=== PATIENT | male | born 1940 | race Caucasian/White ===

== ENCOUNTER → 2019-12-01 15:34 | Outpatient (CLI) | payer OTHER, SELFPAY ==
--- NOTE | 2019-12-01 | DI.CT.S_ITS ---
PROCEDURE: CT LE LT W CON INDICATIONS: LEFT HIP PAIN TECHNIQUE: Noncontrast 3 mm axial sections acquired through the bony pelvis. Additional 3 mm axial sections acquired through the symptomatic hip joint, with coronal and sagittal reformats. COMPARISON: None. FINDINGS: Image quality: Diagnostic. Bones: Patient is status post left total hip arthroplasty. There is extensive lobulated soft tissue mass encompassing the left femoral head and neck component of the prosthesis extending anteriorly and posteriorly to the left hip joint within iliopsoas bursa. There is also medial extension of the soft tissue mass with smoothly erosive changes through the acetabulum and inferior and superior pubic rami. Dorsal and superior subluxation of the femoral head component is seen in relation to the acetabular component. No gross acute fracture is identified although markedly thickened bowel acetabulum is noted. Soft tissues: No other pelvic soft tissue or muscle abnormality is seen. Visualized pelvis shows no free fluid or free air. No inguinal hernia or lymphadenopathy. IMPRESSION: 1. Hypodense soft tissue mass involving left hip joint as described in detail above most compatible with small particle disease. No definite pathologic fracture. No dislocation. Superior and posterior subluxation at left hip joint. 2. No other soft tissue abnormality is seen. Dictated by: Abelino Nolan M.D. on 12/01/2019 at 17:12 Approved by: Abelino Nolan M.D. on 12/01/2019 at 17:19
== END ==
PROVIDERS: Family Provider Family Medicine; PCP Family Medicine; Referring Provider Orthopaedic Surgery; Visit Provider Orthopaedic Surgery
DX: M25.552 Pain in left hip (principal); M25.852 Other specified joint disorders, left hip; S73.012A Posterior subluxation of left hip, initial encounter; Z96.642 Presence of left artificial hip joint
CPT/HCPCS: 73700

== ENCOUNTER → 2020-03-26 13:20 | Outpatient (CLI) | payer OTHER, SELFPAY ==
[2020-03-27 07:43] LABS: COVID19 Sendout Not Detected (Not Detect)
== END ==
PROVIDERS: Family Provider Family Medicine; PCP Family Medicine; Visit Provider Family Medicine
DX: Z11.59 Encounter for screening for other viral diseases (principal)
CPT/HCPCS: 87635

== ENCOUNTER → 2020-05-20 15:16 | Outpatient (CLI) | payer OTHER, SELFPAY ==
--- NOTE | 2020-05-20 15:21 | DI.RAD.S_ITS ---
PROCEDURE: XR HIP W PEL IF DONE LT 2V INDICATIONS: HISTORY OF TOTAL HIP REPLACEMENT, SURGICAL FOLLOW UP. TECHNIQUE: AP pelvis and lateral view of the left hip acquired. COMPARISON: [facility], RG, PELVIS W/LAT HIP LT, 08/03/2019, 17:03. [facility], CT, CT LE LT WO CON, 12/01/2019, 15:45. [facility], CR, XR PELVIS WITH BILATERAL LATERAL HIPS, 11/19/2019, 16:05. FINDINGS: Bones: Patient is status post revision of left hip arthroplasty, with hardware components in expected positions. There is coxa profunda. The hip joint appears congruent. The visualized bony structures appear intact. Posttraumatic appearance of the greater tuberosity is unchanged. Mild smooth bony remodeling along the femoral component lateral aspect of the femoral diaphysis is unchanged. Mild degenerative changes of the right hip. Degenerative changes of the lumbar spine incompletely evaluated. Soft tissues: Overlying postoperative changes are noted. Postsurgical changes along the left periarticular soft tissues. IMPRESSION: Revisional left total hip arthroplasty without evidence of hardware complication. Chronic stress reaction of the proximal femoral diaphysis at the tip of the femoral component. Dictated by: Issac Vasquez D.O. on 05/20/2020 at 15:00 Approved by: Issac Vasquez D.O. on 05/20/2020 at 15:09
== END ==
PROVIDERS: Family Provider Family Medicine; PCP Family Medicine; Referring Provider Orthopaedic Surgery; Visit Provider Orthopaedic Surgery
DX: Z09 Encounter for follow-up examination after completed treatment for conditions other than malignant neoplasm (principal); Z96.642 Presence of left artificial hip joint; M47.816 Spondylosis without myelopathy or radiculopathy, lumbar region
CPT/HCPCS: 73502

== ENCOUNTER → 2020-07-20 15:49 | Outpatient (CLI) | payer OTHER, SELFPAY ==
--- NOTE | 2020-07-20 | DI.RAD.S_ITS ---
PROCEDURE: XR HIP W PEL IF DONE LT 2V INDICATIONS: surgical f/u s/p left hip arthroplasty TECHNIQUE: AP pelvis with lateral view(s) of the left hip(s). COMPARISON: [facility], , XR HIP W PEL IF DONE LT 2V, 05/20/2020, 15:22. FINDINGS: Bones: No fracture. Left hip arthroplasty in expected alignment. Lumbar spondylosis and facet arthropathy moderate right hip joint degeneration. Soft tissues: The visualized bowel gas pattern is normal. No suspicious soft tissue calcifications. IMPRESSION: Expected alignment of left hip arthroplasty. Dictated by: Vinnie Blankenship M.D. on 07/20/2020 at 16:39 Approved by: Vinnie Blankenship M.D. on 07/20/2020 at 16:40
== END ==
PROVIDERS: Family Provider Family Medicine; PCP Family Medicine; Referring Provider Orthopaedic Surgery; Visit Provider Orthopaedic Surgery
DX: Z47.1 Aftercare following joint replacement surgery (principal); Z96.642 Presence of left artificial hip joint
CPT/HCPCS: 73502

== ENCOUNTER → 2022-02-11 15:30 | Outpatient (CLI) | payer OTHER, SELFPAY ==
[2022-02-11 16:17] LABS: Add Manual Diff / Slide Review NO; Basophils Absolute Auto 0 /uL (0-100); Basophils Percent Auto 0.6 % (0-2); Eosinophils Absolute Auto 0 /uL (0-450); Eosinophils Percent Auto 0.4 % (2-4); Hematocrit 33.8 % (41-53); Hemoglobin 11.6 g/dL (13.5-17.5); Lymphocytes Absolute Auto 1400 /uL (1100-4500); Lymphocytes Percent Auto 21.3 % (25-40); Mean Corpuscular HGB Conc 34.3 % (30-36); Mean Corpuscular Volume 87.3 fL (80-100); Monocytes Absolute Auto 900 /uL (0-900); Monocytes Percent Auto 12.9 % (3-14); Neutrophils Absolute Auto 4300 /uL (1500-7000); Neutrophils Percent Auto 64.8 % (50-75); Platelet Count 212 X10^3/uL (150-400); Red Blood Cell Count 3.87 X10^6/uL (4.5-5.9); Red Cell Distribution Width 15.2 % (11.6-14.8); White Blood Cell Count 6.6 X10^3/uL (4.5-11.0)
[2022-02-11 16:39] LABS: Erythrocyte Sedimentation Rate 32 MM/HR (0-15)
[2022-02-11 16:46] LABS: Alanine Aminotransferase 17 IU/L (<50); Albumin 4.1 g/dL (3.5-5.0); Albumin Globulin Ratio 1.2 (1.0-2.8); Alkaline Phosphatase 106 U/L (38-126); Aspartate Aminotransferase 23 IU/L (17-59); BUN Creatinine Ratio 16.1 (6-22); Bilirubin Total 0.6 mg/dL (0.2-1.3); Blood Urea Nitrogen 10 mg/dL (9-20); C-Reactive Protein Quant 1.2 mg/dL (<1.0); Calcium 8.7 mg/dL (8.4-10.2); Carbon Dioxide 28 mmol/L (22-32); Chloride 95 mmol/L (98-107); Estimated Glomerular Filt Rate > 60 mL/min (>60); Globulin 3.4 g/dL (1.7-4.1); Glucose 175 mg/dL (80-110); HEMOLYSIS < 15 (0-50); Potassium 4.5 mmol/L (3.4-5.1); Sodium 129 mmol/L (137-145); Total Protein 7.5 g/dL (6.3-8.2)
== END ==
PROVIDERS: Family Provider Family Medicine; PCP Family Medicine; Referring Provider Nurse Practitioner; Visit Provider Nurse Practitioner
DX: L40.50 Arthropathic psoriasis, unspecified (principal); Z79.899 Other long term (current) drug therapy
CPT/HCPCS: 36415; 80053; 85025; 85651; 86140

== ENCOUNTER → 2022-04-23 16:29 | Outpatient (CLI) | payer OTHER, SELFPAY ==
[2022-04-23 17:53] LABS: Alanine Aminotransferase 16 IU/L (<50); Albumin 4.5 g/dL (3.5-5.0); Albumin Globulin Ratio 1.3 (1.0-2.8); Alkaline Phosphatase 130 U/L (38-126); Aspartate Aminotransferase 26 IU/L (17-59); BUN Creatinine Ratio 19.1 (6-22); Bilirubin Total 0.8 mg/dL (0.2-1.3); Blood Urea Nitrogen 13 mg/dL (9-20); C-Reactive Protein Quant 1.6 mg/dL (<1.0); Calcium 9.1 mg/dL (8.4-10.2); Carbon Dioxide 29 mmol/L (22-32); Chloride 91 mmol/L (98-107); Estimated Glomerular Filt Rate > 60 mL/min (>60); Globulin 3.6 g/dL (1.7-4.1); Glucose 118 mg/dL (80-110); HEMOLYSIS < 15 (0-50); Potassium 4.8 mmol/L (3.4-5.1); Sodium 130 mmol/L (137-145); Total Protein 8.1 g/dL (6.3-8.2)
[2022-04-23 18:13] LABS: Add Manual Diff / Slide Review NO; Basophils Absolute Auto 0 /uL (0-100); Basophils Percent Auto 0.4 % (0-2); Eosinophils Absolute Auto 0 /uL (0-450); Eosinophils Percent Auto 0.6 % (2-4); Hematocrit 35.2 % (41-53); Lymphocytes Absolute Auto 1800 /uL (1100-4500); Mean Corpuscular Hemoglobin 29.8 PG (26-34); Mean Corpuscular Volume 87.6 fL (80-100); Monocytes Absolute Auto 900 /uL (0-900); Monocytes Percent Auto 11.3 % (3-14); Neutrophils Absolute Auto 5100 /uL (1500-7000); Neutrophils Percent Auto 64.7 % (50-75); Platelet Count 236 X10^3/uL (150-400); Red Blood Cell Count 4.02 X10^6/uL (4.5-5.9); Red Cell Distribution Width 15.5 % (11.6-14.8); White Blood Cell Count 7.9 X10^3/uL (4.5-11.0)
[2022-04-23 18:56] LABS: Erythrocyte Sedimentation Rate 31 MM/HR (0-15)
[2022-05-08 06:31] LABS: TPMT Genotype *1/*1
== END ==
PROVIDERS: Family Provider Family Medicine; PCP Family Medicine; Referring Provider Physician Assistant; Visit Provider Physician Assistant
DX: L40.50 Arthropathic psoriasis, unspecified (principal)
CPT/HCPCS: 36415; 80053; 81335; 85025; 85651; 86140

== ENCOUNTER → 2022-05-18 11:42 | Outpatient (CLI) | payer OTHER, SELFPAY ==
[2022-05-18 12:21] LABS: Cholesterol 77 mg/dL (140-199); HDL Cholesterol 30 mg/dL (40-60); LDL Cholesterol Calculated 40 mg/dL (<100); Triglycerides 35 mg/dL (35-150)
== END ==
PROVIDERS: Family Provider Family Medicine; PCP Family Medicine; Referring Provider Family Medicine; Visit Provider Family Medicine
DX: I25.10 Atherosclerotic heart disease of native coronary artery without angina pectoris (principal)
CPT/HCPCS: 36415; 80061

== ENCOUNTER → 2023-05-06 12:49 | Outpatient (CLI) | payer OTHER, SELFPAY ==
[2023-05-06 14:35] LABS: Cholesterol 84 mg/dL (140-199); HDL Cholesterol 30 mg/dL (40-60); LDL Cholesterol Calculated 45 mg/dL (<100); Triglycerides 44 mg/dL (35-150)
== END ==
PROVIDERS: Family Provider Family Medicine; PCP Family Medicine; Referring Provider Internal Medicine Cardiovascular Disease; Visit Provider Internal Medicine Cardiovascular Disease
DX: I10 Essential (primary) hypertension (principal); I25.10 Atherosclerotic heart disease of native coronary artery without angina pectoris; I50.32 Chronic diastolic (congestive) heart failure
CPT/HCPCS: 36415; 80061

== ENCOUNTER → 2023-07-26 12:02 | Outpatient (CLI) | payer OTHER, SELFPAY ==
[2023-07-26 12:23] LABS: Add Manual Diff / Slide Review NO; Basophils Absolute Auto 0 /uL (0-100); Basophils Percent Auto 0.4 % (0-2); Eosinophils Absolute Auto 0 /uL (0-450); Eosinophils Percent Auto 0.8 % (2-4); Hematocrit 33.6 % (41-53); Hemoglobin 11.4 g/dL (13.5-17.5); Lymphocytes Absolute Auto 1000 /uL (1100-4500); Lymphocytes Percent Auto 16.3 % (25-40); Mean Corpuscular Hemoglobin 30.2 PG (26-34); Mean Corpuscular Volume 88.8 fL (80-100); Monocytes Absolute Auto 500 /uL (0-900); Monocytes Percent Auto 8.3 % (3-14); Neutrophils Absolute Auto 4400 /uL (1500-7000); Neutrophils Percent Auto 74.2 % (50-75); Platelet Count 202 X10^3/uL (150-400); Red Blood Cell Count 3.79 X10^6/uL (4.5-5.9); Red Cell Distribution Width 15.1 % (11.6-14.8); White Blood Cell Count 5.9 X10^3/uL (4.5-11.0)
[2023-07-26 12:37] LABS: Alanine Aminotransferase 14 IU/L (<50); Albumin 4.3 g/dL (3.5-5.0); Albumin Globulin Ratio 1.3 (1.0-2.8); Alkaline Phosphatase 106 U/L (38-126); Aspartate Aminotransferase 21 IU/L (17-59); BUN Creatinine Ratio 16.4 (6-22); Bilirubin Total 0.9 mg/dL (0.2-1.3); Blood Urea Nitrogen 11 mg/dL (9-20); C-Reactive Protein Quant 1.3 mg/dL (<1.0); Calcium 9.2 mg/dL (8.4-10.2); Carbon Dioxide 26 mmol/L (22-32); Chloride 91 mmol/L (98-107); Estimated Glomerular Filt Rate > 60 mL/min (>60); Globulin 3.4 g/dL (1.7-4.1); Glucose 181 mg/dL (80-110); HEMOLYSIS < 15 (0-50); Potassium 4.5 mmol/L (3.4-5.1); Sodium 127 mmol/L (137-145); Total Protein 7.7 g/dL (6.3-8.2)
[2023-07-26 12:41] LABS: Erythrocyte Sedimentation Rate 36 MM/HR (0-15)
== END ==
PROVIDERS: Family Provider Family Medicine; PCP Family Medicine; Referring Provider Internal Medicine Rheumatology; Visit Provider Family Medicine
DX: L40.50 Arthropathic psoriasis, unspecified (principal)
CPT/HCPCS: 36415; 80053; 85025; 85651; 86140

== ENCOUNTER → 2023-09-17 12:44 | Outpatient (CLI) | payer OTHER, SELFPAY ==
--- NOTE | 2023-09-17 12:46 | DI.RAD.S_ITS ---
PROCEDURE: XR HIP W PEL IF DONE LT MIN 4V INDICATIONS: Left hip pain; hx of total LH replacement; no hx of injury TECHNIQUE: AP pelvis and lateral view of the hip acquired. COMPARISON: [facility], , XR HIP W PEL IF DONE LT 2V, 07/20/2020, 16:02. FINDINGS: Bones: Patient is status post left hip arthroplasty, with hardware components in expected positions. No evidence of hardware loosening or failure. Hip alignment is unchanged from prior study. Increased radiolucency surrounding left hip prosthesis in proximal femoral shaft, concerning for osteolysis. Moderate right hip joint osteoarthritic changes are seen. No evidence of avascular necrosis. Soft tissues: Overlying postoperative changes are noted. No suspicious soft tissue densities. IMPRESSION: 1. Prior left total hip arthroplasty. No acute fracture or dislocation. No gross hardware loosening or failure. Increased radiolucency surrounding left femoral prosthesis surrounding proximal femoral shaft extending to greater trochanter concerning for osteolysis. 2. Moderate right hip joint osteoarthritis. No fracture or dislocation. No evidence of avascular necrosis. Dictated by: Abelino Nolan M.D. on 09/17/2023 at 16:37 Approved by: Abelino Nolan M.D. on 09/17/2023 at 16:39
[2023-09-17 13:53] LABS: Add Manual Diff / Slide Review NO; Basophils Absolute Auto 0 /uL (0-100); Basophils Percent Auto 0.7 % (0-2); Eosinophils Absolute Auto 0 /uL (0-450); Eosinophils Percent Auto 0.5 % (2-4); Hematocrit 34.4 % (41-53); Hemoglobin 11.6 g/dL (13.5-17.5); Lymphocytes Absolute Auto 1300 /uL (1100-4500); Mean Corpuscular HGB Conc 33.9 % (30-36); Mean Corpuscular Hemoglobin 30.4 PG (26-34); Mean Corpuscular Volume 89.8 fL (80-100); Monocytes Absolute Auto 500 /uL (0-900); Monocytes Percent Auto 9.6 % (3-14); Neutrophils Absolute Auto 3500 /uL (1500-7000); Neutrophils Percent Auto 65.2 % (50-75); Platelet Count 182 X10^3/uL (150-400); Red Blood Cell Count 3.83 X10^6/uL (4.5-5.9); Red Cell Distribution Width 14.9 % (11.6-14.8); White Blood Cell Count 5.4 X10^3/uL (4.5-11.0)
[2023-09-17 14:26] LABS: Hemoglobin A1C% w Est Avg Glu 5.4 % (4.0-6.0)
[2023-09-17 16:03] LABS: Alanine Aminotransferase 12 IU/L (<50); Albumin 4.1 g/dL (3.5-5.0); Albumin Globulin Ratio 1.3 (1.0-2.8); Alkaline Phosphatase 128 U/L (38-126); Aspartate Aminotransferase 21 IU/L (17-59); BUN Creatinine Ratio 15.8 (6-22); Bilirubin Total 1.1 mg/dL (0.2-1.3); Blood Urea Nitrogen 9 mg/dL (9-20); Calcium 9.1 mg/dL (8.4-10.2); Carbon Dioxide 29 mmol/L (22-32); Chloride 95 mmol/L (98-107); Cholesterol 75 mg/dL (140-199); Estimated Glomerular Filt Rate > 60 mL/min (>60); Globulin 3.1 g/dL (1.7-4.1); Glucose 123 mg/dL (80-110); HDL Cholesterol 39 mg/dL (40-60); HEMOLYSIS < 15 (0-50); LDL Cholesterol Calculated 28 mg/dL (<100); Potassium 4.5 mmol/L (3.4-5.1); Sodium 130 mmol/L (137-145); Total Protein 7.2 g/dL (6.3-8.2); Triglycerides 42 mg/dL (35-150)
== END ==
PROVIDERS: Family Provider Family Medicine; PCP Family Medicine; Referring Provider Physician Assistant; Visit Provider Physician Assistant
DX: M16.11 Unilateral primary osteoarthritis, right hip (principal); M25.552 Pain in left hip; I63.9 Cerebral infarction, unspecified; R73.01 Impaired fasting glucose; L40.50 Arthropathic psoriasis, unspecified; R79.89 Other specified abnormal findings of blood chemistry; Z96.642 Presence of left artificial hip joint
CPT/HCPCS: 36415; 73522; 80053; 80061; 83036; 85025

== ENCOUNTER 2024-01-06 23:13 | Inpatient (IN) | payer OTHER, SELFPAY ==
[2024-01-06 23:14] VITALS: BP 232/11; PULSE 75; RESP 16; TEMP 36.5; O2SAT 91; BMI 36.1
[2024-01-06 23:20] VITALS: PULSE 76; RESP 26; O2SAT 91
--- NOTE | 2024-01-06 23:21 | DI.RAD.S_ITS ---
PROCEDURE: XR CHEST 1V INDICATIONS: weakness TECHNIQUE: One view of the chest was acquired. COMPARISON: None. FINDINGS: Surgical changes and devices: Sternal wires. Lungs and pleura: Lungs are clear. No pleural effusions or pneumothorax. Mediastinum: Mediastinal contours appear normal. Heart size is enlarged. Bones and chest wall: No suspicious bony lesions. Overlying soft tissues appear unremarkable. IMPRESSION: No acute pulmonary process. Dictated by: Mabel Eddy M.D. on 01/07/2024 at 1:06 Approved by: Mabel Eddy M.D. on 01/07/2024 at 1:06
--- NOTE | 2024-01-06 23:23 | ED.GENADULT ---
HPI - General Adult General Chief complaint: Altered Mental Status Stated complaint: Weakness/AMS Time Seen by Provider: 01/06/24 23:15 Source: EMS Mode of arrival: EMS History of Present Illness HPI narrative: 83-year-old gentleman with a history of coronary artery disease, hypertension, prior stroke, psoriatic arthritis, chronic left hip pain, elevated blood sugars who is brought in by medics at the request of his for weakness, falls and altered mental status for the last 2 days. is having difficulty caring for him at home. Patient is complaining of nausea at this time but is otherwise pleasantly confused. Not complaining of chest pain, dyspnea, orthopnea, not noting new lower extremity edema. No complaints of dysuria, frequency, flank pain. Of note he has a baseline history of anisocoria that is unchanged. Related Data Home Medications Medication Instructions Recorded Confirmed aspirin 81 mg tablet,delayed 81 mg PO QDAY ##0 07/30/12 09/16/23 release [SOSA & CELERY EX] 1 tab PO BID ##0 08/20/17 09/16/23 isosorbide mononitrate 30 mg 30 mg PO QAM ##0 08/20/17 09/16/23 tablet,extended release 24 hr magnesium oxide 400 mg (241.3 mg 400 mg PO QDAY ##0 08/20/17 09/16/23 magnesium) tablet nitroglycerin 0.4 mg sublingual 0.4 mg sublingual PRN PRN ##0 08/20/17 09/16/23 tablet (Nitrostat) vit C 250 mg-vit E 90 mg-zinc 40 2 cap PO QDAY ##0 08/20/17 09/16/23 mg-copper 1 [id number] capsule (PreserVision AREDS-2) ascorbic acid (vitamin C) 1,000 mg 1 g PO Q6H 04/16/22 09/16/23 tablet furosemide 40 mg tablet 40 mg PO DAILY 04/16/22 09/16/23 ketoconazole 2 % topical cream 1 applic topical BID 04/16/22 09/16/23 vitamin B complex (B 1 tab PO DAILY 04/16/22 09/16/23 Complex-Vitamin B12 tablet) valsartan 80 mg tablet 80 mg PO BID 09/16/23 09/16/23 Previous Rx's Medication Instructions Recorded azathioprine 50 mg tablet 50 mg PO DAILY #30 tabs 04/16/22 omeprazole 20 mg capsule,delayed See Rx Instructions .Route 02/11/23 release .COMPLEX #180 caps carvedilol 6.25 mg tablet (Coreg) 6.25 mg PO BID #180 tabs 10/06/23 atorvastatin 20 mg tablet 20 mg PO BEDTIME #90 tabs 10/15/23 Allergies Allergy/AdvReac Type Severity Reaction Status Date / Time benzocaine [BENZOCAINE] Allergy Unknown Unverified 09/16/23 16:27 procaine [From NOVOCAIN] Allergy Unknown Unverified 09/16/23 16:27 SULFA Allergy Mild Uncoded 09/16/23 16:27 Review of Systems Review of Systems Narrative: Pertinent positive and negative findings as per HPI Patient History Medical History Right orbital fracture Excessive cerumen in both ear canals Actinic keratoses Wears glasses Psoriatic arthritis (~2017) Stroke (~2012) Mumps (~1946) Measles (~1946) Chicken pox (~1946) Hearing loss Glaucoma (~2015) Cataracts, bilateral (~2015) Gastric ulcer (~2012) Coronary artery disease (~2012) Carotid artery disorder (~2013) Surgical History Anesthesia History of eye surgery (~08/23/17) History of plastic surgery (~08/21/17) History of cataract removal with insertion of prosthetic lens Status post carotid surgery (~04/07/14) History of heart bypass surgery (~09/18/12) Status post total hip replacement, left (~1989) Family History Father History of heart disease History of heart bypass surgery Mother Diabetes mellitus Brother History of heart disease History of heart bypass surgery Social History Smoking Status: Never smoker Smoking Status: Never smoker Substance Use Type: does not use Exam Initial Vital Signs Initial Vital Signs: Vital Signs Temperature 97.7 F 01/06/24 23:14 Pulse Rate 75 01/06/24 23:14 Respiratory Rate 16 01/06/24 23:14 Blood Pressure 232/11 H 01/06/24 23:14 Pulse Oximetry 91 01/06/24 23:14 Oxygen Delivery Method Room Air 01/06/24 23:14 General: Older appearing gentleman, in no acute distress. Wondering history but able to speak in full sentences HEENT: Moist mucous membranes, normal sclera Neck: No JVD, supple Respiratory: Lungs with scattered wheeze, no crackles, Full and symmetrical air movement Cardiac: Regular rate and rhythm no murmurs no bruits Abdomen: Soft, obese, nontender, good bowel tones, no flank pain Skin: Warm and dry, no rashes Neurologic: Grossly neurologically intact with no obvious asymmetries or abnormalities Extremities: No trauma, well perfused, 1+ bilateral lower extremity edema with chronic venous stasis changes, Left arm has a large hematoma over the elbow and proximal arm. Dressing is in place. Full unrestricted and nonfocal painful range of motion at that elbow. 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 - Disability Benefits Specialist Stat 01/06/24 23:25 CT head/brain wo con Stat 01/06/24 23:39 Complete Blood Count AUTO DIFF Stat Comprehensive Metabolic Panel Stat Lipase Stat Magnesium Stat NT-proBNP (BNP-Adult 18+) Stat Procalcitonin Stat Troponin I Stat 01/07/24 00:30 Respiratory Panel (Film Array) Stat 01/07/24 00:31 Urinalysis and Microscopic Stat 01/07/24 01:15 Osmolality Urine Stat Osmolality, Serum Stat Discontinued Medications Furosemide (Furosemide 40 Mg/4 Ml Vial) 40 mg IV NOW ONE Stop: 01/07/24 01:16 Last Admin: 01/07/24 01:30 Dose: 40 mg Sodium Chloride (Hypertonic Saline 3%) 100 mls @ 600 mls/hr IV NOW ONE Stop: 01/07/24 01:25 Last Admin: 01/07/24 01:38 Dose: 600 mls/hr Valsartan (Valsartan 80 Mg Tablet) 80 mg PO NOW ONE Stop: 01/07/24 01:31 Vital Signs Vital signs: Vital Signs - 8 hr 01/06/24 23:14 01/06/24 23:20 01/06/24 23:30 Temperature 97.7 F Pulse Rate 75 76 76 Respiratory Rate 16 26 H 27 H Blood Pressure 232/11 H Pulse Oximetry 91 91 92 Oxygen Delivery Method Room Air 01/07/24 00:00 01/07/24 00:09 01/07/24 00:09 Temperature Pulse Rate 79 83 Respiratory Rate 26 H 30 H Blood Pressure 235/125 H Pulse Oximetry 95 95 Oxygen Delivery Method 01/07/24 00:30 01/07/24 00:31 01/07/24 00:31 Temperature Pulse Rate 83 83 Respiratory Rate 27 H 46 H Blood Pressure 246/114 H Pulse Oximetry 95 95 Oxygen Delivery Method 01/07/24 00:39 01/07/24 00:39 01/07/24 00:40 Temperature Pulse Rate 85 Respiratory Rate 38 H Blood Pressure 133/95 H 216/90 H Pulse Oximetry 94 Oxygen Delivery Method 01/07/24 00:40 01/07/24 00:50 01/07/24 00:50 Temperature Pulse Rate 84 83 Respiratory Rate 50 H 48 H Blood Pressure 198/90 H Pulse Oximetry 98 Oxygen Delivery Method 01/07/24 01:00 01/07/24 01:00 01/07/24 01:10 Temperature Pulse Rate 81 Respiratory Rate 49 H Blood Pressure 180/92 H 188/104 H Pulse Oximetry 97 Oxygen Delivery Method 01/07/24 01:10 Temperature Pulse Rate 82 Respiratory Rate 53 H Blood Pressure Pulse Oximetry 97 Oxygen Delivery Method Medical Decision Making Lab Data 01/06/24 23:39 01/06/24 23:39 Labs: Lab Results 01/06/24 01/07/24 01/07/24 Range/Units 23:39 00:30 00:31 WBC 11.0 (4.5-11.0) X10^3/uL RBC 3.62 L (4.5-5.9) X10^6/uL Hgb 10.9 L (13.5-17.5) g/dL Hct 30.8 L (41-53) % MCV 85.0 (80-100) fL MCH 30.1 (26-34) PG MCHC 35.4 (30-36) % RDW 15.2 H (11.6-14.8) % Plt Count 277 (150-400) X10^3/uL Neut % (Auto) 80.7 H (50-75) % Lymph % (Auto) 10.1 L (25-40) % Dickenson % (Auto) 8.4 (3-14) % Eos % (Auto) 0.1 L (2-4) % Baso % (Auto) 0.7 (0-2) % Neut # (Auto) 8900 H (9730-0149) /uL Lymph # (Auto) 1100 (9369-1091) /uL Dickenson # (Auto) 900 (0-900) /uL Eos # (Auto) 0 (0-450) /uL Baso # (Auto) 100 (0-100) /uL Sodium 107 L* (137-145) mmol/L Potassium 5.0 (3.4-5.1) mmol/L Chloride 72 L* (98-107) mmol/L Carbon Dioxide 25 (22-32) mmol/L BUN 10 (9-20) mg/dL Creatinine 0.52 L (0.66-1.25) mg/dL Estimated GFR > 60 (>60) mL/min BUN/Creatinine Ratio 19.2 (6-22) Glucose 141 H (80-110) mg/dL Calcium 8.3 L (8.4-10.2) mg/dL Magnesium 1.9 (1.6-2.3) mg/dL Total Bilirubin 1.9 H (0.2-1.3) mg/dL AST 32 (17-59) IU/L ALT 17 (<50) IU/L Alkaline Phosphatase 152 H (38-126) U/L Troponin I < 0.012 (0.01-0.034) ng/mL NT-Pro-B Natriuret Pep 1870 H (<450) pg/mL Total Protein 7.6 (6.3-8.2) g/dL Albumin 4.3 (3.5-5.0) g/dL Globulin 3.3 (1.7-4.1) g/dL Albumin/Globulin Ratio 1.3 (1.0-2.8) Lipase 80 (23-300) U/L Procalcitonin 0.039 (<0.5) ng/mL Urine Color Yellow Urine Appearance Slightly cloudy Urine pH 7.0 (4.5-8.0) Ur Specific [place] 1.010 (1.000-1.035) Urine Protein Trace H (Negative) Urine Glucose (UA) Negative (Negative) g/dL Urine Ketones 1+ H (NEGATIVE) Urine Occult Blood Negative (Negative) Urine Nitrate Negative (Negative) Urine Bilirubin Negative (NEGATIVE) Urine Urobilinogen 4.0 H (0.2) E.U./dL Ur Leukocyte Esterase Negative (NEGATIVE) Urine RBC None seen (0-5/HPF) Urine WBC None seen (0-5/HPF) Ur Squamous Epith Cells 0-1 /hpf (0-5/HPF) Amorphous Sediment 1+ Urine Bacteria None seen (None) Ur Culture Indicated? Cult not indicated Vol Urine Centrifuged 10ml (spun) Chlamy pneumoniae PCR Not detected (Not Detect) Adenovirus (PCR) Not detected (Not Detect) B.parapertussis DNA PCR Not detected (Not Detecte) Coronavirus OC43 (PCR) Not detected (Not Detect) Coronavirus HKU1 (PCR) Not detected (Not Detect) Coronavirus 229E (PCR) Not detected (Not Detect) SARS-CoV-2 (PCR) Not detected (Not Detecte) Coronavirus NL63 (PCR) Not detected (Not Detect) Human Metapneumovir PCR Not detected (Not Detect) Influenza Type A (PCR) Not detected (Not Detect) Influenza Type B (PCR) Not detected (Not Detect) M. pneumoniae (PCR) Not detected (Not Detect) Parainfluenza 1 (PCR) Not detected (Not Detect) Parainfluenza 2 (PCR) Not detected (Not Detect) Parainfluenza 3 (PCR) Not detected (Not Detect) Parainfluenza 4 (PCR) Not detected (Not Detect) RSV (PCR) Not detected (Not Detect) Entero/Rhino (PCR) Not detected (Not Detect) MDM Narrative Medical decision making narrative: CC: Increasing weakness and altered mental status per his Complicating co-morbidities: Coronary artery disease, hypertension, prior stroke, psoriatic arthritis Data collected from: patient, medics Social determinants of health that may influence the patients condition: Patient and his (fiance? patient is unsure) still live independently Medical records reviewed: Primary care note from the end of August reviewed Cardiology consultation outpatient from September 17 is reviewed Differential considered: Sepsis, stroke, electrolyte abnormality, bacterial infection Exam documented above, pertinent findings include: Patient is confused and distractible but pleasant, able to speak in full sentences obese abdomen 1+ bilateral edema. Left arm has a large hematoma over the elbow and proximal arm. Dressing is in place. Full unrestricted and nonfocal painful range of motion at that elbow. Otherwise unremarkable exam Lab Test results independently reviewed as above. Pertinent findings: Chemistries show a sodium low at 107 with a chloride low at 72. Creatinine is appropriate at 0.52. Total bili is slightly elevated at 1.9. Alk-phos is chronically elevated at 152 Troponin is undetectable BNP is 1870 Independently reviewed EKG: Sinus rhythm at a rate of 75. Right axis deviation at 178 without acute ischemic changes Imaging studies independently reviewed: CT scan of the head does not show any acute changes or masses that might explain his severe hyponatremia X-ray is unremarkable. He does not have dramatic volume overload appreciated Treatments: 40 mg of IV Lasix, Allred catheter placement, 100 cc of hypertonic saline Re-evaluations: Reviewed findings with the patient and his ?woman?. He still is quite confused. She notes that he has had low-sodium chronically for the last 2 years I explained to her that 107 is significantly lower than his average 130 range. She understands need for hospitalization Discussion: 83-year-old gentleman presents with altered mental status and increasing weakness found to have sodium low at 107. No obvious explanation is immediately forthcoming. He is on Lasix he does have mild congestive heart failure as well. No sign of infection, stroke, tumors or masses in his brain or his chest cavity. Blood pressure is elevated and it is not clear that he is taken his valsartan over the last few days. Evening dose of 80 mg of valsartan we will be given as well. Care is reviewed with Dr. Rosado, admitting hospitalist and patient will be admitted to the intensive care unit for management of his severe hyponatremia. Critical Care Time Critical Care Time Critical Care Time: Yes Total Critical Care Time: 33 Attestation: Critical care time is separate from other billable procedures. There is a high probability of a significant, sudden or life-threatening deterioration that requires my full and direct attention, intervention and personal management. This critical care time includes consultation with family and other consulting doctors, review of records, and interpretation of data from labs, EKGs and imaging as well as managements of altered mental status with life-threatening electrolyte abnormalities Discharge Plan Departure Patient Disposition: Admitted As Inpatient Clinical Impression: Acute hyponatremia, Weakness Altered mental status Qualifiers: Altered mental status type: delirium Qualified Code(s): R41.0 - Disorientation, unspecified Congestive heart failure Qualifiers: Heart failure type: unspecified Heart failure chronicity: acute on chronic Qualified Code(s): I50.9 - Heart failure, unspecified Hypertension Qualifiers: Hypertension type: primary hypertension Qualified Code(s): I10 - Essential (primary) hypertension Admit Date/Time: 01/07/24 01:19 Admit Provider: Chin Steve
--- NOTE | 2024-01-06 23:25 | DI.CT.S_ITS ---
PROCEDURE: CT HEAD/BRAIN WO CON INDICATIONS: altered mental status TECHNIQUE: Noncontrast 4.5 mm thick angled axial sections acquired from the foramen magnum to the vertex, with coronal and sagittal reformats. For radiation dose reduction, the following was used: automated exposure control, adjustment of mA and/or kV according to patient size. COMPARISON: [facility], CT, HEAD WITHOUT CONTRAST, 08/20/2017, 9:59. FINDINGS: Image quality: Diagnostic. CSF spaces: Basal cisterns are patent. No extra-axial fluid collections. The ventricles are symmetric in size and shape. Brain: No intracranial bleeds or masses. There is cerebral volume loss for age, with resultant ventricular and sulcal prominence. There are periventricular and deep white matter chronic small vessel ischemic changes. There is intracranial internal carotid artery atherosclerosis. Skull and face: Calvarium and visualized facial bones appear intact, without suspicious lesions. Sinuses: Visualized sinuses demonstrate scattered areas mucosal IMPRESSION: 1. No acute intracranial process. 2. Moderate atrophy and chronic microvascular ischemic changes. Dictated by: Mabel Eddy M.D. on 01/07/2024 at 1:07 Approved by: Mabel Eddy M.D. on 01/07/2024 at 1:08
[2024-01-06 23:30] VITALS: PULSE 76; RESP 27; O2SAT 92
--- NOTE | 2024-01-06 23:37 | EKG_ITS ---
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
[2024-01-07] VITALS (55 sets, daily range): BP systolic 110–246; BP diastolic 56–125; PULSE 64–88; RESP 17–56; TEMP 36.2–36.7; O2SAT 90–98; BMI 36.1
[2024-01-07] LABS: Add Manual Diff / Slide Review NO; Basophils Absolute Auto 100 /uL (0-100); Basophils Percent Auto 0.7 % (0-2); Eosinophils Absolute Auto 0 /uL (0-450); Eosinophils Percent Auto 0.1 % (2-4); Hematocrit 30.8 % (41-53); Hemoglobin 10.9 g/dL (13.5-17.5); Lymphocytes Absolute Auto 1100 /uL (1100-4500); Lymphocytes Percent Auto 10.1 % (25-40); Mean Corpuscular HGB Conc 35.4 % (30-36); Mean Corpuscular Hemoglobin 30.1 PG (26-34); Monocytes Absolute Auto 900 /uL (0-900); Monocytes Percent Auto 8.4 % (3-14); Neutrophils Absolute Auto 8900 /uL (1500-7000); Neutrophils Percent Auto 80.7 % (50-75); Platelet Count 277 X10^3/uL (150-400); Red Blood Cell Count 3.62 X10^6/uL (4.5-5.9); Red Cell Distribution Width 15.2 % (11.6-14.8)
[2024-01-07 00:14] LABS: Alanine Aminotransferase 17 IU/L (<50); Albumin 4.3 g/dL (3.5-5.0); Albumin Globulin Ratio 1.3 (1.0-2.8); Alkaline Phosphatase 152 U/L (38-126); Aspartate Aminotransferase 32 IU/L (17-59); BUN Creatinine Ratio 19.2 (6-22); Bilirubin Total 1.9 mg/dL (0.2-1.3); Blood Urea Nitrogen 10 mg/dL (9-20); Calcium 8.3 mg/dL (8.4-10.2); Carbon Dioxide 25 mmol/L (22-32); Estimated Glomerular Filt Rate > 60 mL/min (>60); Globulin 3.3 g/dL (1.7-4.1); Glucose 141 mg/dL (80-110); HEMOLYSIS < 15 (0-50); Lipase 80 U/L (23-300); Magnesium 1.9 mg/dL (1.6-2.3); Total Protein 7.6 g/dL (6.3-8.2)
[2024-01-07 00:25] LABS: NT-proBNP (BNP-Adult 18+) 1870 pg/mL (<450); Troponin I < 0.012 ng/mL (0.01-0.034)
[2024-01-07 00:30] LABS: Procalcitonin 0.039 ng/mL (<0.5)
[2024-01-07 00:33] LABS: Chloride 72 mmol/L (98-107); Sodium 107 mmol/L (137-145)
[2024-01-07 00:42] LABS: Bilirubin Urine UA NEGATIVE (NEGATIVE); Color Urine UA YELLOW; Glucose Urine UA NEGATIVE (Negative); Ketones Urine UA 1+ (NEGATIVE); Leukocyte Esterase Urine UA NEGATIVE (NEGATIVE); Nitrite Urine UA NEGATIVE (Negative); Occult Blood Urine UA NEGATIVE (Negative); Protein Urine UA TRACE (Negative)
[2024-01-07 00:52] LABS: Appearance Urine UA Slightly Cloudy
[2024-01-07 00:54] LABS: Amorphous Sediment Urine 1+; Bacteria Urine None Seen; Culture Indicated Urine Cult Not Indicated; RBC Urine None Seen (0-5/HPF); Squamous Epithelial Cell Urine 0-1 /HPF (0-5/HPF); Urine Volume 10mL (spun); WBC Urine None Seen (0-5/HPF)
[2024-01-07] MEDS: FUROSEMIDE 40 MG/4 ML VIAL IV ×3 (01:30→22:07)
[2024-01-07] MEDS: SODIUM CHLORIDE 3 % 100 ML 600 ML IV (01:38)
[2024-01-07 01:53] LABS: Adenovirus Not Detected (Not Detect); B. parapertussis Not Detected (Not Detecte); Bordetella pertussis Not Detected (Not Detect); Chlamydophila pneumoniae Not Detected (Not Detect); Coronavirus 229E Not Detected (Not Detect); Coronavirus HKU1 Not Detected (Not Detect); Coronavirus NL 63 Not Detected (Not Detect); Coronavirus OC43 Not Detected (Not Detect); Human Metapneumovirus Not Detected (Not Detect); Human Rhinovirus/Enterovirus Not Detected (Not Detect); Influenza A Not Detected (Not Detect); Influenza B Not Detected (Not Detect); Mycoplasma pneumoniae Not Detected (Not Detect); Parainfluenza Virus 1 Not Detected (Not Detect); Parainfluenza Virus 2 Not Detected (Not Detect); Parainfluenza Virus 3 Not Detected (Not Detect); Parainfluenza Virus 4 Not Detected (Not Detect); Respiratory Syncytial Virus Not Detected (Not Detect); SARS- CoV-2 Not Detected (Not Detecte)
[2024-01-07] MEDS: VALSARTAN 80 MG TABLET PO ×3 (02:30→21:08)
--- NOTE | 2024-01-07 04:17 | P.HP_ITS ---
History of Present Illness History of Present Illness Chief complaint: Weakness/AMS Narrative: From the ED: 83-year-old gentleman with a history of coronary artery disease, hypertension, prior stroke, psoriatic arthritis, chronic left hip pain, elevated blood sugars who is brought in by medics at the request of his for weakness, falls and altered mental status for the last 2 days. is having difficulty caring for him at home. Patient is complaining of nausea at this time but is otherwise pleasantly confused. Not complaining of chest pain, dyspnea, orthopnea, not noting new lower extremity edema. No complaints of dysuria, frequency, flank pain. Of note he has a baseline history of anisocoria that is unchanged On admission unable to provide history [facility] Medical History Right orbital fracture Excessive cerumen in both ear canals Actinic keratoses Wears glasses Psoriatic arthritis (~2017) Stroke (~2012) Mumps (~1946) Measles (~1946) Chicken pox (~1946) Hearing loss Glaucoma (~2015) Cataracts, bilateral (~2015) Gastric ulcer (~2012) Coronary artery disease (~2012) Carotid artery disorder (~2013) Surgical History Anesthesia History of eye surgery (~08/23/17) History of plastic surgery (~08/21/17) History of cataract removal with insertion of prosthetic lens Status post carotid surgery (~04/07/14) History of heart bypass surgery (~09/18/12) Status post total hip replacement, left (~1989) Family History Father History of heart disease History of heart bypass surgery Mother Diabetes mellitus Brother History of heart disease History of heart bypass surgery Social History household members: significant other Smoking Status: Never smoker Meds Home Medications and Allergies Home Medications Medication Instructions Recorded Confirmed Type aspirin 81 mg tablet,delayed 81 mg PO QDAY ##0 07/30/12 09/16/23 History release [SOSA & CELERY EX] 1 tab PO BID ##0 08/20/17 09/16/23 History isosorbide mononitrate 30 mg 30 mg PO QAM ##0 08/20/17 09/16/23 History tablet,extended release 24 hr magnesium oxide 400 mg (241.3 mg 400 mg PO QDAY ##0 08/20/17 09/16/23 History magnesium) tablet nitroglycerin 0.4 mg sublingual 0.4 mg sublingual PRN PRN ##0 08/20/17 09/16/23 History tablet (Nitrostat) vit C 250 mg-vit E 90 mg-zinc 40 2 cap PO QDAY ##0 08/20/17 09/16/23 History mg-copper 1 [id number] capsule (PreserVision AREDS-2) ascorbic acid (vitamin C) 1,000 mg 1 g PO Q6H 04/16/22 09/16/23 History tablet azathioprine 50 mg tablet 50 mg PO DAILY #30 tabs 04/16/22 09/16/23 Rx furosemide 40 mg tablet 40 mg PO DAILY 04/16/22 09/16/23 History ketoconazole 2 % topical cream 1 applic topical BID 04/16/22 09/16/23 History vitamin B complex (B 1 tab PO DAILY 04/16/22 09/16/23 History Complex-Vitamin B12 tablet) omeprazole 20 mg capsule,delayed See Rx Instructions .Route 02/11/23 09/16/23 Rx release .COMPLEX #180 caps valsartan 80 mg tablet 80 mg PO BID 09/16/23 09/16/23 History carvedilol 6.25 mg tablet (Coreg) 6.25 mg PO BID #180 tabs 10/06/23 Rx atorvastatin 20 mg tablet 20 mg PO BEDTIME #90 tabs 10/15/23 Rx Allergies Allergy/AdvReac Type Severity Reaction Status Date / Time benzocaine [BENZOCAINE] Allergy Unknown Unverified 09/16/23 16:27 procaine [From NOVOCAIN] Allergy Unknown Unverified 09/16/23 16:27 SULFA Allergy Mild Uncoded 09/16/23 16:27 Review of Systems Review of Systems Narrative: Unobtainable due to encephalopathy Exam Vital Signs (past 8 hours): - 01/06/24 23:14 01/06/24 23:20 01/06/24 23:30 Temperature 97.7 F Pulse Rate 75 76 76 Respiratory Rate 16 26 H 27 H Blood Pressure 232/11 H Pulse Oximetry 91 91 92 Oxygen Delivery Method Room Air 01/07/24 00:00 01/07/24 00:09 01/07/24 00:09 Temperature Pulse Rate 79 83 Respiratory Rate 26 H 30 H Blood Pressure 235/125 H Pulse Oximetry 95 95 Oxygen Delivery Method 01/07/24 00:30 01/07/24 00:31 01/07/24 00:31 Temperature Pulse Rate 83 83 Respiratory Rate 27 H 46 H Blood Pressure 246/114 H Pulse Oximetry 95 95 Oxygen Delivery Method 01/07/24 00:39 01/07/24 00:39 01/07/24 00:40 Temperature Pulse Rate 85 Respiratory Rate 38 H Blood Pressure 133/95 H 216/90 H Pulse Oximetry 94 Oxygen Delivery Method 01/07/24 00:40 01/07/24 00:50 01/07/24 00:50 Temperature Pulse Rate 84 83 Respiratory Rate 50 H 48 H Blood Pressure 198/90 H Pulse Oximetry 98 Oxygen Delivery Method 01/07/24 01:00 01/07/24 01:00 01/07/24 01:10 Temperature Pulse Rate 81 Respiratory Rate 49 H Blood Pressure 180/92 H 188/104 H Pulse Oximetry 97 Oxygen Delivery Method 01/07/24 01:10 01/07/24 01:20 01/07/24 01:20 Temperature Pulse Rate 82 83 Respiratory Rate 53 H 55 H Blood Pressure 195/105 H Pulse Oximetry 97 97 Oxygen Delivery Method 01/07/24 01:30 01/07/24 01:30 01/07/24 01:39 Temperature Pulse Rate 84 84 Respiratory Rate 49 H 52 H Blood Pressure 203/98 H Pulse Oximetry 96 96 Oxygen Delivery Method 01/07/24 01:40 01/07/24 01:40 01/07/24 01:50 Temperature Pulse Rate 84 Respiratory Rate 56 H Blood Pressure 212/89 H 201/92 H Pulse Oximetry 96 Oxygen Delivery Method 01/07/24 01:50 01/07/24 02:00 01/07/24 02:00 Temperature Pulse Rate 85 83 Respiratory Rate 53 H 51 H Blood Pressure 188/77 H Pulse Oximetry 96 96 Oxygen Delivery Method 01/07/24 02:10 01/07/24 02:10 01/07/24 02:20 Temperature Pulse Rate 85 86 Respiratory Rate 28 H 28 H Blood Pressure 204/96 H Pulse Oximetry 91 94 Oxygen Delivery Method 01/07/24 02:20 01/07/24 02:30 01/07/24 02:30 Temperature Pulse Rate 85 Respiratory Rate 27 H Blood Pressure 212/89 H 201/90 H Pulse Oximetry 95 Oxygen Delivery Method 01/07/24 02:40 01/07/24 02:40 01/07/24 03:42 Temperature Pulse Rate 84 Respiratory Rate 18 Blood Pressure 207/92 H Pulse Oximetry 95 Oxygen Delivery Method Nasal Cannula Oxygen Delivery Method Nasal Cannula Const Other: in no distress HENMT Other: normocephalic hearing loss Neck Other: supple Resp Other: rhonchi and wheezes Cardio Other: RRR GI Other: abdomen not tender or distended Skin Other: hematoma of left arm around elbow candidiasis in folds Neuro Other: moving all extremities Extrem Other: tender left arm / elbow Psych Other: encephalopathic Objective ECG Impression: NSR 75 Labs 01/06/24 23:39 01/06/24 23:39 Labs: Laboratory Results - last 24 hr 01/06/24 01/07/24 01/07/24 23:39 00:30 00:31 WBC 11.0 RBC 3.62 L Hgb 10.9 L Hct 30.8 L MCV 85.0 MCH 30.1 MCHC 35.4 RDW 15.2 H Plt Count 277 Neut % (Auto) 80.7 H Lymph % (Auto) 10.1 L [place] % (Auto) 8.4 Eos % (Auto) 0.1 L Baso % (Auto) 0.7 Neut # (Auto) 8900 H Lymph # (Auto) 1100 [place] # (Auto) 900 Eos # (Auto) 0 Baso # (Auto) 100 Sodium 107 L* Potassium 5.0 Chloride 72 L* Carbon Dioxide 25 BUN 10 Creatinine 0.52 L Estimated GFR > 60 BUN/Creatinine Ratio 19.2 Glucose 141 H Calcium 8.3 L Magnesium 1.9 Total Bilirubin 1.9 H AST 32 ALT 17 Alkaline Phosphatase 152 H Troponin I < 0.012 NT-Pro-B Natriuret Pep 1870 H Total Protein 7.6 Albumin 4.3 Globulin 3.3 Albumin/Globulin Ratio 1.3 Lipase 80 Procalcitonin 0.039 Urine Color Yellow Urine Appearance Slightly cloudy Urine pH 7.0 Ur Specific [place] 1.010 Urine Protein Trace H Urine Glucose (UA) Negative Urine Ketones 1+ H Urine Occult Blood Negative Urine Nitrate Negative Urine Bilirubin Negative Urine Urobilinogen 4.0 H Ur Leukocyte Esterase Negative Urine RBC None seen Urine WBC None seen Ur Squamous Epith Cells 0-1 /hpf Amorphous Sediment 1+ Urine Bacteria None seen Ur Culture Indicated? Cult not indicated Vol Urine Centrifuged 10ml (spun) Chlamy pneumoniae PCR Not detected Adenovirus (PCR) Not detected B.parapertussis DNA PCR Not detected Coronavirus OC43 (PCR) Not detected Coronavirus HKU1 (PCR) Not detected Coronavirus 229E (PCR) Not detected SARS-CoV-2 (PCR) Not detected Coronavirus NL63 (PCR) Not detected Human Metapneumovir PCR Not detected Influenza Type A (PCR) Not detected Influenza Type B (PCR) Not detected M. pneumoniae (PCR) Not detected Parainfluenza 1 (PCR) Not detected Parainfluenza 2 (PCR) Not detected Parainfluenza 3 (PCR) Not detected Parainfluenza 4 (PCR) Not detected RSV (PCR) Not detected Entero/Rhino (PCR) Not detected Assessment & Plan Assessment and plan (1) Acute hyponatremia: Status: Acute (2) Altered mental status: Qualifiers: Altered mental status type: delirium Qualified Code(s): R41.0 - Disorientation, unspecified Status: Acute (3) Hypertension: Qualifiers: Hypertension type: primary hypertension Qualified Code(s): I10 - Essential (primary) hypertension Status: Acute (4) Coronary artery disease: Qualifiers: Coronary Disease-Associated Artery/Lesion type: unspecified vessel or lesion type [place] vs. transplanted heart: [place] heart Associated angina: u nspecified whether angina present Qualified Code(s): I25.10 - Atherosclerotic heart disease of [place] coronary artery without angina pectoris Status: Acute (5) History of stroke: Status: Chronic (6) Psoriatic arthritis: Status: Acute (7) Hearing loss: Problem details: Life time Status: Acute (8) GERD (gastroesophageal reflux disease): Status: Acute Assessment & Plan narrative: Hyponatremia - given 100 cc of hypertonic, 3% saline in the ED for Na of 105 - ICU admission - BMP q 4 h Acute Metabolic Encephalopathy - 2nd to hyponatremia - w/o evidence of stroke or infection HFpEF - had Lasix 40 mg IVP in the ED HTN - uncontrolled on admission - Coreg, Valsartan, Lasix - prn hydralzine GERD - PPI Carotid Stenosis, CAD - ASA, statin, Imdur DVT prophylaxis - SCDs Time-Based Coding :: [TOTAL MINUTES] spent with patient and on the chart (including review of chart, obtaining history, exam, reviewing outside data, placing orders, documenting exam and treatment plan, and counseling patient) on [DATE].
[2024-01-07 05:20] LABS: Add Manual Diff / Slide Review NO; Basophils Absolute Auto 100 /uL (0-100); Basophils Percent Auto 0.5 % (0-2); Eosinophils Absolute Auto 0 /uL (0-450); Eosinophils Percent Auto 0.2 % (2-4); Hematocrit 31.5 % (41-53); Hemoglobin 11.3 g/dL (13.5-17.5); Lymphocytes Absolute Auto 1000 /uL (1100-4500); Lymphocytes Percent Auto 8.5 % (25-40); Mean Corpuscular HGB Conc 35.7 % (30-36); Mean Corpuscular Hemoglobin 30.1 PG (26-34); Mean Corpuscular Volume 84.3 fL (80-100); Monocytes Absolute Auto 800 /uL (0-900); Monocytes Percent Auto 6.8 % (3-14); Neutrophils Absolute Auto 9900 /uL (1500-7000); Platelet Count 270 X10^3/uL (150-400); Red Blood Cell Count 3.74 X10^6/uL (4.5-5.9); Red Cell Distribution Width 14.9 % (11.6-14.8); White Blood Cell Count 11.7 X10^3/uL (4.5-11.0)
[2024-01-07 05:22] LABS: BUN Creatinine Ratio 17.4 (6-22); Blood Urea Nitrogen 8 mg/dL (9-20); Calcium 8.1 mg/dL (8.4-10.2); Carbon Dioxide 28 mmol/L (22-32); Estimated Glomerular Filt Rate > 60 mL/min (>60); Glucose 151 mg/dL (80-110); HEMOLYSIS 23 (0-50); Potassium 4.5 mmol/L (3.4-5.1)
[2024-01-07 05:24] LABS: Chloride 72 mmol/L (98-107); Sodium 108 mmol/L (137-145)
[2024-01-07 05:25] LABS: MRSA (Nasal) PCR NOT DETECTED (Not Detect)
[2024-01-07] MEDS: FUROSEMIDE 40 MG TABLET PO (06:12)
--- NOTE | 2024-01-07 08:16 | PM.HP.1 ---
History of Present Illness History of Present Illness Date Patient Seen: 01/07/24 Chief complaint: Weakness/AMS Narrative: From night doctor: 83-year-old gentleman with a history of coronary artery disease, hypertension, prior stroke, psoriatic arthritis, chronic left hip pain, elevated blood sugars who is brought in by medics at the request of his for weakness, falls and altered mental status for the last 2 days. is having difficulty caring for him at home. Patient is complaining of nausea at this time but is otherwise pleasantly confused. Not complaining of chest pain, dyspnea, orthopnea, not noting new lower extremity edema. No complaints of dysuria, frequency, flank pain. 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 S: The patient isn't able to add much additional history. He does state he has in a hard time eating today and reaching his fluids. He can not say much about whether or not he has had increased swelling recently. He denies any shortness a breath but has a cough. The nurse notes pulmonary congestion and he does have pedal edema bilaterally. His sodium has not improved with saline over the last 8 hours. [facility] Medical History Right orbital fracture Excessive cerumen in both ear canals Actinic keratoses Wears glasses Psoriatic arthritis (~2018) Stroke (~2012) Mumps (~194) Measles (~194) Chicken pox (~194) Hearing loss Glaucoma (~2016) Cataracts, bilateral (~2016) Gastric ulcer (~2012) Coronary artery disease (~2012) Carotid artery disorder (~2013) Surgical History Anesthesia History of eye surgery (~08/23/17) History of plastic surgery (~08/21/17) History of cataract removal with insertion of prosthetic lens Status post carotid surgery (~04/07/14) History of heart bypass surgery (~09/18/12) Status post total hip replacement, left (~1989) Family History Father History of heart disease History of heart bypass surgery Mother Diabetes mellitus Brother History of heart disease History of heart bypass surgery Social History household members: significant other Smoking Status: Never smoker Meds Home Medications and Allergies Home Medications Medication Instructions Recorded Confirmed Type aspirin 81 mg tablet,delayed 81 mg PO QDAY ##0 07/30/12 09/16/23 History release [SOSA & CELERY EX] 1 tab PO BID ##0 08/20/17 09/16/23 History isosorbide mononitrate 30 mg 30 mg PO QAM ##0 08/20/17 09/16/23 History tablet,extended release 24 hr magnesium oxide 400 mg (241.3 mg 400 mg PO QDAY ##0 08/20/17 09/16/23 History magnesium) tablet nitroglycerin 0.4 mg sublingual 0.4 mg sublingual PRN PRN ##0 08/20/17 09/16/23 History tablet (Nitrostat) vit C 250 mg-vit E 90 mg-zinc 40 2 cap PO QDAY ##0 08/20/17 09/16/23 History mg-copper 1 [id number] capsule (PreserVision AREDS-2) ascorbic acid (vitamin C) 1,000 mg 1 g PO Q6H 04/16/22 09/16/23 History tablet azathioprine 50 mg tablet 50 mg PO DAILY #30 tabs 04/16/22 09/16/23 Rx furosemide 40 mg tablet 40 mg PO DAILY 04/16/22 09/16/23 History ketoconazole 2 % topical cream 1 applic topical BID 04/16/22 09/16/23 History vitamin B complex (B 1 tab PO DAILY 04/16/22 09/16/23 History Complex-Vitamin B12 tablet) omeprazole 20 mg capsule,delayed See Rx Instructions .Route 02/11/23 09/16/23 Rx release .COMPLEX #180 caps valsartan 80 mg tablet 80 mg PO BID 09/16/23 09/16/23 History carvedilol 6.25 mg tablet (Coreg) 6.25 mg PO BID #180 tabs 10/06/23 Rx atorvastatin 20 mg tablet 20 mg PO BEDTIME #90 tabs 10/15/23 Rx Allergies Allergy/AdvReac Type Severity Reaction Status Date / Time benzocaine [BENZOCAINE] Allergy Unknown Unverified 09/16/23 16:27 procaine [From NOVOCAIN] Allergy Unknown Unverified 09/16/23 16:27 SULFA Allergy Mild Uncoded 09/16/23 16:27 Review of Systems Review of Systems Narrative: ROS difficult to obtain due to his inattention and inability to participate. Exam Vital Signs (past 8 hours): - 01/07/24 00:30 01/07/24 00:31 01/07/24 00:31 Temperature Pulse Rate 83 83 Respiratory Rate 27 H 46 H Blood Pressure 246/114 H Pulse Oximetry 95 95 Oxygen Delivery Method Oxygen Flow Rate 01/07/24 00:39 01/07/24 00:39 01/07/24 00:40 Temperature Pulse Rate 85 Respiratory Rate 38 H Blood Pressure 133/95 H 216/90 H Pulse Oximetry 94 Oxygen Delivery Method Oxygen Flow Rate 01/07/24 00:40 01/07/24 00:50 01/07/24 00:50 Temperature Pulse Rate 84 83 Respiratory Rate 50 H 48 H Blood Pressure 198/90 H Pulse Oximetry 98 Oxygen Delivery Method Oxygen Flow Rate 01/07/24 01:00 01/07/24 01:00 01/07/24 01:10 Temperature Pulse Rate 81 Respiratory Rate 49 H Blood Pressure 180/92 H 188/104 H Pulse Oximetry 97 Oxygen Delivery Method Oxygen Flow Rate 01/07/24 01:10 01/07/24 01:20 01/07/24 01:20 Temperature Pulse Rate 82 83 Respiratory Rate 53 H 55 H Blood Pressure 195/105 H Pulse Oximetry 97 97 Oxygen Delivery Method Oxygen Flow Rate 01/07/24 01:30 01/07/24 01:30 01/07/24 01:39 Temperature Pulse Rate 84 84 Respiratory Rate 49 H 52 H Blood Pressure 203/98 H Pulse Oximetry 96 96 Oxygen Delivery Method Oxygen Flow Rate 01/07/24 01:40 01/07/24 01:40 01/07/24 01:50 Temperature Pulse Rate 84 Respiratory Rate 56 H Blood Pressure 212/89 H 201/92 H Pulse Oximetry 96 Oxygen Delivery Method Oxygen Flow Rate 01/07/24 01:50 01/07/24 02:00 01/07/24 02:00 Temperature Pulse Rate 85 83 Respiratory Rate 53 H 51 H Blood Pressure 188/77 H Pulse Oximetry 96 96 Oxygen Delivery Method Oxygen Flow Rate 01/07/24 02:10 01/07/24 02:10 01/07/24 02:20 Temperature Pulse Rate 85 86 Respiratory Rate 28 H 28 H Blood Pressure 204/96 H Pulse Oximetry 91 94 Oxygen Delivery Method Oxygen Flow Rate 01/07/24 02:20 01/07/24 02:30 01/07/24 02:30 Temperature Pulse Rate 85 Respiratory Rate 27 H Blood Pressure 212/89 H 201/90 H Pulse Oximetry 95 Oxygen Delivery Method Oxygen Flow Rate 01/07/24 02:40 01/07/24 02:40 01/07/24 03:00 Temperature 97.2 F L Pulse Rate 84 88 Respiratory Rate 18 32 H Blood Pressure 207/92 H 204/98 H Pulse Oximetry 95 94 Oxygen Delivery Method Oxygen Flow Rate 2 01/07/24 03:42 01/07/24 04:00 01/07/24 05:11 Temperature 97.6 F 97.4 F L Pulse Rate 80 79 Respiratory Rate 37 H 33 H Blood Pressure 189/92 H 170/94 H Pulse Oximetry 94 96 Oxygen Delivery Method Nasal Cannula Oxygen Flow Rate 2 2 01/07/24 06:19 Temperature 97.4 F L Pulse Rate 75 Respiratory Rate 23 Blood Pressure 172/109 H Pulse Oximetry 95 Oxygen Delivery Method Oxygen Flow Rate 2 Oxygen Delivery Method Nasal Cannula Oxygen Flow Rate 2 Narrative Exam Narrative: NAD, alert and oriented, fluent speech, calm. Easily distractible. Normocephalic skull, EOMI, anicteric sclera, symmetric pupils. Oropharynx unremarkable, no droop. Neck supple, midline trachea, no adenopathy. Lungs clear except scattered rhonchi, normal rate and effort. Heart regular, no murmur gallop or rub. Abdomen is soft, non distended and non tender. Extremities are with bilateral pedal edema. Skin is free of rash or lesions. Joints are not swollen or deformed. Judgment appears to be abnormal. Objective Labs 01/07/24 04:53 01/07/24 08:04 Labs: Laboratory Results - last 24 hr 01/06/24 01/07/24 01/07/24 23:39 00:30 00:31 WBC 11.0 RBC 3.62 L Hgb 10.9 L Hct 30.8 L MCV 85.0 MCH 30.1 MCHC 35.4 RDW 15.2 H Plt Count 277 Neut % (Auto) 80.7 H Lymph % (Auto) 10.1 L [place] % (Auto) 8.4 Eos % (Auto) 0.1 L Baso % (Auto) 0.7 Neut # (Auto) 8900 H Lymph # (Auto) 1100 [place] # (Auto) 900 Eos # (Auto) 0 Baso # (Auto) 100 Sodium 107 L* Potassium 5.0 Chloride 72 L* Carbon Dioxide 25 BUN 10 Creatinine 0.52 L Estimated GFR > 60 BUN/Creatinine Ratio 19.2 Glucose 141 H Calcium 8.3 L Magnesium 1.9 Total Bilirubin 1.9 H AST 32 ALT 17 Alkaline Phosphatase 152 H Troponin I < 0.012 NT-Pro-B Natriuret Pep 1870 H Total Protein 7.6 Albumin 4.3 Globulin 3.3 Albumin/Globulin Ratio 1.3 Lipase 80 Procalcitonin 0.039 Urine Color Yellow Urine Appearance Slightly cloudy Urine pH 7.0 Ur Specific [place] 1.010 Urine Protein Trace H Urine Glucose (UA) Negative Urine Ketones 1+ H Urine Occult Blood Negative Urine Nitrate Negative Urine Bilirubin Negative Urine Urobilinogen 4.0 H Ur Leukocyte Esterase Negative Urine RBC None seen Urine WBC None seen Ur Squamous Epith Cells 0-1 /hpf Amorphous Sediment 1+ Urine Bacteria None seen Ur Culture Indicated? Cult not indicated Vol Urine Centrifuged 10ml (spun) Nasal Screen MRSA (PCR) Chlamy pneumoniae PCR Not detected Adenovirus (PCR) Not detected B.parapertussis DNA PCR Not detected Coronavirus OC43 (PCR) Not detected Coronavirus HKU1 (PCR) Not detected Coronavirus 229E (PCR) Not detected SARS-CoV-2 (PCR) Not detected Coronavirus NL63 (PCR) Not detected Human Metapneumovir PCR Not detected Influenza Type A (PCR) Not detected Influenza Type B (PCR) Not detected M. pneumoniae (PCR) Not detected Parainfluenza 1 (PCR) Not detected Parainfluenza 2 (PCR) Not detected Parainfluenza 3 (PCR) Not detected Parainfluenza 4 (PCR) Not detected RSV (PCR) Not detected Entero/Rhino (PCR) Not detected 01/07/24 01/07/24 03:00 04:53 WBC 11.7 H RBC 3.74 L Hgb 11.3 L Hct 31.5 L MCV 84.3 MCH 30.1 MCHC 35.7 RDW 14.9 H Plt Count 270 Neut % (Auto) 84.0 H Lymph % (Auto) 8.5 L [place] % (Auto) 6.8 Eos % (Auto) 0.2 L Baso % (Auto) 0.5 Neut # (Auto) 9900 H Lymph # (Auto) 1000 L [place] # (Auto) 800 Eos # (Auto) 0 Baso # (Auto) 100 Sodium 108 L* Potassium 4.5 Chloride 72 L* Carbon Dioxide 28 BUN 8 L Creatinine 0.46 L Estimated GFR > 60 BUN/Creatinine Ratio 17.4 Glucose 151 H Calcium 8.1 L Magnesium Total Bilirubin AST ALT Alkaline Phosphatase Troponin I NT-Pro-B Natriuret Pep Total Protein Albumin Globulin Albumin/Globulin Ratio Lipase Procalcitonin Urine Color Urine Appearance Urine pH Ur Specific [place] Urine Protein Urine Glucose (UA) Urine Ketones Urine Occult Blood Urine Nitrate Urine Bilirubin Urine Urobilinogen Ur Leukocyte Esterase Urine RBC Urine WBC Ur Squamous Epith Cells Amorphous Sediment Urine Bacteria Ur Culture Indicated? Vol Urine Centrifuged Nasal Screen MRSA (PCR) Not detected Chlamy pneumoniae PCR Adenovirus (PCR) B.parapertussis DNA PCR Coronavirus OC43 (PCR) Coronavirus HKU1 (PCR) Coronavirus 229E (PCR) SARS-CoV-2 (PCR) Coronavirus NL63 (PCR) Human Metapneumovir PCR Influenza Type A (PCR) Influenza Type B (PCR) M. pneumoniae (PCR) Parainfluenza 1 (PCR) Parainfluenza 2 (PCR) Parainfluenza 3 (PCR) Parainfluenza 4 (PCR) RSV (PCR) Entero/Rhino (PCR) Assessment & Plan Assessment & Plan narrative: Hyponatremia, present on admission and active. - given 100 cc of hypertonic, 3% saline in the ED for Na of 105 - ICU admission - BMP q 4 h Acute Metabolic Encephalopathy, present on admission and active. - 2nd to hyponatremia - w/o evidence of stroke or infection HFpEF, present on admission and active. - had Lasix 40 mg IVP in the ED HTN, present on admission and active. - uncontrolled on admission - Coreg, Valsartan, Lasix - prn hydralzine GERD, present on admission and active. - PPI Carotid Stenosis, CAD. Stable. - ASA, statin, Imdur PLAN: -we will stop saline. -we will fluid restrict and diurese. -2D echo to assess LV EF with history of heart failure. -monitor mental status. DIEGO is 2-3 days. Patient needs correction of sodium up towards baseline of 130. Time-Based Coding :: 40 min spent with patient and on the chart (including review of chart, obtaining history, exam, reviewing outside data, placing orders, documenting exam and treatment plan, and counseling patient) on 01/06. Quality MIPS - Admit I confirm the patient?s Advance Care Plan is present, Code status is documented, Surrogate decision maker is in patient?s record [If Yes, STOP here]: Yes MIPS - Meds 'Current medications' to include all prescriptions, [id number] products, herbals, cannabis/cannabidiol products, and vitamin/mineral/dietary (nutritional) supplements. I have utilized all available resources to obtain, update, or review the patient?s current medications. [If Yes, STOP here]: Yes
[2024-01-07] MEDS: carvediloL 3.125 MG TABLET 6.25 MG PO ×2 (08:46→21:09)
[2024-01-07] MEDS: PANTOPRAZOLE DR 40 MG TABLET PO (08:46)
[2024-01-07] MEDS: ASPIRIN EC 81 MG TABLET PO (08:46)
[2024-01-07] MEDS: ISOSORBIDE MONONITRATE ER 30 MG TABLET PO (08:46)
[2024-01-07 08:56] LABS: Calcium 8.3 mg/dL (8.4-10.2); HEMOLYSIS < 15 (0-50); Potassium 4.4 mmol/L (3.4-5.1)
[2024-01-07 09:05] LABS: BUN Creatinine Ratio 16.7 (6-22); Blood Urea Nitrogen 8 mg/dL (9-20); Carbon Dioxide 27 mmol/L (22-32); Estimated Glomerular Filt Rate > 60 mL/min (>60); Glucose 142 mg/dL (80-110)
[2024-01-07 09:09] LABS: Chloride 71 mmol/L (98-107); Sodium 107 mmol/L (137-145)
--- NOTE | 2024-01-07 09:21 | DI.ECHO.S_ITS ---
[facility] : : [id number] : [address] : : [id number] : : Phone: [phone] Echocardiogram Report + + :Name: VARGAS MOLINA Study Date: 01/07/2024 Height: 72 in : :Hospital ReadingLocation: Weight: 263 lb : : Gender: Male BSA: 2.4 m2 : :: 1940 Age: 83 yrs BP: 135/63 mmHg: :Reason For Study: CONGESTIVE HEART FAILURE : :Ordering Physician: MARTHA, : :CHANDRAKANT Rodrigues Performed By: Nara Wilknis : :Referring: CHANDRAKANT THOMAS : + + Interpretation Summary The left ventricle is normal in size and wall thickness. The ejection fraction is estimated to be 40-45%. Septal bounce present. Septum appears to be hypokinetic. The right ventricle is normal in size and function. There is mild mitral regurgitation. The aortic valve is grossly normal. The aortic valve is not well visualized. Overall morphologically no significant aortic cusp restriction. The peak aortic velocity is 2.2 m/sec. There is no hemodynamically significant valvular aortic stenosis. There is trace tricuspid regurgitation. The right ventricular systolic pressure is estimated to be at least 55 mmHg based on an estimated right atrial pressure of 15 mm Hg. There is moderate pulmonary hypertension. Procedure: A two-dimensional transthoracic echocardiogram with color flow and Doppler was performed. The study quality was technically adequate. There is no prior echocardiogram noted for this patient. The patient was in sinus rhythm with heart rates between 65-71 bpm during the exam. Left Ventricle: The left ventricle is normal in size and wall thickness. The ejection fraction is estimated to be 40-45%. Septal bounce present. Septum appears to be hypokinetic. MV E/A: 1.7 Med Peak E' Mik: 7.3 cm/sec E/E' med: 10.7. No advanced diastolic dysfunction. Right Ventricle: The right ventricle is normal in size and function. Atria: The left atrium is mildly dilated. The right atrium is normal in size. There is no Doppler evidence for an interatrial shunt. Mitral Valve: The mitral valve leaflets appear mildly thickened, but open well. There is mild mitral annular calcification. There is mild mitral regurgitation. Aortic Valve: The aortic valve is not well visualized. The aortic valve is grossly normal. Overall morphologically no significant aortic cusp restriction. The peak aortic velocity is 2.2 m/sec. The aortic valve mean gradient is 11.5 mmHg. There is no hemodynamically significant valvular aortic stenosis. No aortic regurgitation is present. Tricuspid Valve: The tricuspid valve is not well visualized, but is grossly normal. The right ventricular systolic pressure is estimated to be at least 55 mmHg based on an estimated right atrial pressure of 15 mm Hg. There is trace tricuspid regurgitation. There is moderate pulmonary hypertension. Pulmonic Valve: The pulmonic valve is not well visualized. There is no pulmonic valvular regurgitation. Great Vessels: The aortic root is normal size. The ascending aorta could not be visualized. The IVC is dilated (diameter is greater than 2.1 cm) and it collapses less than 50% with a sniff. This suggests a high right atrial pressure of 15 mm Hg. Pericardium/ Pleura There is an anterior echo-free space consistent with a fat pad. Behind the right atrium there appears to be a trivial to small pericardial effusion. There is no pleural effusion. MMode/2D Measurements & Calculations LVIDd: 5.4 cm LVOT diam: 2.0 cm LVIDs: 4.7 cm Ao root diam: 2.9 cm FS: 14.3 % IVSd: 0.73 cm LVPWd: 1.1 cm LV perry. diameter/BSA (cm/m^2): 2.3 LV sys. diameter/BSA (cm/m^2): 1.9 LA A2 area: 26.5 cm2 RA long axis: 6.3 cm LA A4 area: 29.0 cm2 RA area: 22.4 cm2 LA length (vol): 6.7 cm RA vol: 67.5 ml LA vol: 97.3 ml RA : 28.2 ml/m2 LA vol index: 40.7 ml/m2 IVC diam: 2.6 cm RVD1 (basal): 4.0 cm TAPSE: 1.9 cm Doppler Measurements & Calculations Ao V2 max: 222.7 cm/sec LVOT Max Mik: 89.5 cm/sec Ao V2 mean: 162.5 cm/sec LV V1 max P.2 mmHg Ao max P.8 mmHg LV V1 VTI: 17.3 cm Ao mean P.5 mmHg MIKE(I,D): 1.1 cm2 Ao V2 VTI: 50.1 cm MIKE(V,D): 1.3 cm2 sev ratio: 0.35 MIKE indexed to BSA (cm^2/m^2): 0.46 MV E max mik: 77.4 cm/sec TR max mik: 316.5 cm/sec MV A max mik: 46.0 cm/sec TR max P.1 mmHg MV E/A: 1.7 PA V2 max: 73.1 cm/sec Med Peak E' Mik: 7.3 cm/sec PA V2 mean: 51.8 cm/sec E/E' med: 10.7 PA mean P.2 mmHg Lat Peak E' Mik: 6.7 cm/sec PA pr(Accel): 13.9 mmHg E/E' lat: 11.5 E/e' average: 11.1 MV dec time: 0.23 sec SV(LVOT): 54.7 ml Reading Physician:12:33 PM
[2024-01-07 09:31] LABS: Sodium Urine Random 98 mmol/L (30-90)
[2024-01-07 12:55] LABS: Base Excess ABG 4.9 mmol/L (-2-3); HCO3 ABG 29 mmol/L (23-27); PCO2 ABG 38.2 mmHg (35-45); PO2 ABG 93 mmHg (80-100); pH ABG 7.48 (7.35-7.45)
[2024-01-07 12:56] LABS: Delivery System NC; Fractionated Inspired Oxygen 24; Oxygen Saturation ABG 98 % (95-100); TCO2 ABG 28 mmol/L (23-27)
[2024-01-07 12:57] LABS: Allen Test for ABG Passed? Yes, Passed
[2024-01-07 12:59] LABS: BUN Creatinine Ratio 16.4 (6-22); Blood Urea Nitrogen 9 mg/dL (9-20); Carbon Dioxide 30 mmol/L (22-32); Estimated Glomerular Filt Rate > 60 mL/min (>60); Glucose 131 mg/dL (80-110); HEMOLYSIS 20 (0-50); Potassium 4.7 mmol/L (3.4-5.1)
[2024-01-07 13:07] LABS: Chloride 71 mmol/L (98-107); Sodium 107 mmol/L (137-145)
--- NOTE | 2024-01-07 13:47 | CM.DANOTE ---
Brief DCP Assessment note Pt is a 83yo M, preferred name Simón Singh, here for hyponatremia. Pt has had 2 days prior to admission of falls/weakness at home per partner. PMH of prior stroke and hypertension. Pt has had AMS since admission, no currently oriented. PCP [facility] and self pay COMPRESSOR STATIONS SUPERINTENDENT reviewed EMR. Per chart, pt lives in [place] with partner Soila ([phone]). Per chart, Soila has had increased difficulty caring for pt at home. Per hospitalist in morning rounds, not quite ready for PT/OT evals yet, want sodium to come up first. Per RN, partner has not been to floor today to visit pt. Pt no oriented, confused, remains very altered mentally. Sodium levels remain low throughout the day. COMPRESSOR STATIONS SUPERINTENDENT lvm with partner Soila to assess for baseline function and DCP needs, no response yet. P: Medical POC continues to develop, DCP pending. Likely SNF candidate once medically stable. CM team will follow closely FREEMAN Wellington Discharge Planning/Care Management CM Discharge Assessment Start: 01/07/24 13:45 Freq: Status: Active Protocol: Document 01/07/24 13:45 (Rec: 01/07/24 13:47 [id number]) Discharge Planning Assessment Assigned Training Associate FREEMAN Wilhelm DPOA/Assigned Designee Name [email or web address] Cm partner Contact Information [phone] Advance Directives? Yes Advance Directives on File No History Provided By Medical Record Prior Living Arrangements House Household Members significant other Is patient alert and oriented? No Transportation Arrangement pending medical POC Whiteboard Updated in Patient Room with No name and ext. # of Training Associate Review Status In Process Please Provide Date Initial DC 01/07/24 Assessment Was Performed Next Review Type Continued Stay Review
[2024-01-07] MEDS: FUROSEMIDE 60 MG in SODIUM CHLORIDE 0.9% 50 ML 112 MG IV (14:16)
[2024-01-07] MEDS: SODIUM CHLORIDE 3 % 100 ML 20 ML IV (16:15)
[2024-01-07 16:42] LABS: BUN Creatinine Ratio 14.9 (6-22); Blood Urea Nitrogen 10 mg/dL (9-20); Calcium 7.9 mg/dL (8.4-10.2); Carbon Dioxide 30 mmol/L (22-32); Estimated Glomerular Filt Rate > 60 mL/min (>60); Glucose 113 mg/dL (80-110); HEMOLYSIS < 15 (0-50); Potassium 4.3 mmol/L (3.4-5.1)
[2024-01-07 16:45] LABS: Chloride 71 mmol/L (98-107); Sodium 107 mmol/L (137-145)
--- NOTE | 2024-01-07 17:53 | PC.NURSE ---
Addendum entered by Trinh Ibarra R.N. 01/07/24 18:06: Allevyn dressing placed to healing skin tear to left elbow. Original Note: Day Shift Note Patient initially alert and oriented to self and place although forgetful and repetitive in his statements. Breathing coarse with wheezing, 1L NC in place, desats to upper 80s when on RA. Very PILOT STATION, requires frequent cueing for turns in bed due to this and confusion. At 1230 pt noted to be very somnolent, able to awaken briefly with sternal rub, breathing very coarse. MD notified and ABG obtained and Lasix IV administered with good response. NA has remained 107 throughout shift, MD notified of critical values. Order received this afternoon for 100 ml 3% saline, started after 1615 BMP. At about 1745, pt awake and asking about food. Dinner set up. Pt is alert and oriented to self, reoriented to place and situation. Pt with very repetitive questioning. Call light within reach and pt instructed grassland conservationist light use, calls out frequently this afternoon for assistance. Bed alarm is on.
[2024-01-07] MEDS: ATORVASTATIN 20 MG TABLET PO (21:09)
[2024-01-07 22:28] LABS: BUN Creatinine Ratio 17.3 (6-22); Blood Urea Nitrogen 13 mg/dL (9-20); Calcium 7.8 mg/dL (8.4-10.2); Carbon Dioxide 31 mmol/L (22-32); Estimated Glomerular Filt Rate > 60 mL/min (>60); Glucose 164 mg/dL (80-110); HEMOLYSIS < 15 (0-50); Potassium 4.1 mmol/L (3.4-5.1)
[2024-01-07 22:45] LABS: Chloride 72 mmol/L (98-107); Sodium 109 mmol/L (137-145)
[2024-01-08] VITALS (31 sets, daily range): BP systolic 108–174; BP diastolic 52–90; PULSE 62–80; RESP 14–52; TEMP 36.1–36.3; O2SAT 89–100
[2024-01-08 05:03] LABS: BUN Creatinine Ratio 22.1 (6-22); Blood Urea Nitrogen 15 mg/dL (9-20); Calcium 7.9 mg/dL (8.4-10.2); Carbon Dioxide 30 mmol/L (22-32); Estimated Glomerular Filt Rate > 60 mL/min (>60); Glucose 105 mg/dL (80-110); HEMOLYSIS 23 (0-50)
[2024-01-08 05:05] LABS: Chloride 73 mmol/L (98-107); Sodium 111 mmol/L (137-145)
[2024-01-08] MEDS: PANTOPRAZOLE DR 40 MG TABLET PO (06:39)
--- NOTE | 2024-01-08 07:56 | PM.PN.1 ---
Subjective Subjective Interval history: He was admitted with hyponatremia, which was likely hypervolemic. He has been treated with several doses of hypertonic saline, fluid restriction and diuresis. His urine sodium was around 90. He would leg edema and pulmonary congestion yesterday. S: He was still confused but much improved from yesterday. He does know where he was in the year. Exam Vital Signs (past 8 hours): - 01/08/24 00:00 01/08/24 00:00 01/08/24 01:00 Temperature 97.3 F L Pulse Rate 67 Respiratory Rate 52 H Blood Pressure 127/64 146/69 H Pulse Oximetry 92 Oxygen Flow Rate 2 01/08/24 01:00 01/08/24 02:00 01/08/24 03:00 Temperature Pulse Rate 75 68 Respiratory Rate 30 H 20 Blood Pressure 108/52 L 144/65 H Pulse Oximetry 93 93 Oxygen Flow Rate 2 2 01/08/24 03:00 01/08/24 04:00 01/08/24 04:00 Temperature 97.0 F L Pulse Rate 73 70 Respiratory Rate 26 H 25 H Blood Pressure 123/58 L Pulse Oximetry 94 96 Oxygen Flow Rate 2 2 01/08/24 05:00 01/08/24 05:00 01/08/24 06:00 Temperature Pulse Rate 63 Respiratory Rate 28 H Blood Pressure 111/58 L 122/56 L Pulse Oximetry 98 Oxygen Flow Rate 2 01/08/24 06:00 01/08/24 07:00 01/08/24 07:00 Temperature Pulse Rate 68 80 Respiratory Rate 23 27 H Blood Pressure 174/81 H Pulse Oximetry 94 93 Oxygen Flow Rate 2 Fraction of Inspired Oxygen 28 SaO2/FiO2 Ratio 328 Oxygen Delivery Method Nasal Cannula Oxygen Flow Rate 2 Narrative Exam Narrative: NAD, alert and oriented. Fluent speech. Lungs are clear, normal rate and effort. No rhonchi today. Heart is regular, no murmur gallop or rub. Abdomen is soft, non distended. Extremities are with 1+ edema. Objective Labs 01/07/24 04:53 01/08/24 03:36 Labs: Laboratory Results - last 24 hr 01/07/24 01/07/24 01/07/24 08:04 08:57 12:21 ABG pH ABG pCO2 ABG pO2 ABG HCO3 ABG Total CO2 ABG O2 Saturation ABG Base Excess O2 Delivery Device FiO2 Sodium 107 L* 107 L* Potassium 4.4 4.7 Chloride 71 L* 71 L* Carbon Dioxide 27 30 BUN 8 L 9 Creatinine 0.48 L 0.55 L Estimated GFR > 60 > 60 BUN/Creatinine Ratio 16.7 16.4 Glucose 142 H 131 H Calcium 8.3 L 8.0 L Ur Random Sodium 98 H 01/07/24 01/07/24 01/07/24 12:41 16:04 21:40 ABG pH 7.48 H ABG pCO2 38.2 ABG pO2 93 ABG HCO3 29 H ABG Total CO2 28 H ABG O2 Saturation 98 ABG Base Excess 4.9 H O2 Delivery Device Nc FiO2 24 Sodium 107 L* 109 L* Potassium 4.3 4.1 Chloride 71 L* 72 L* Carbon Dioxide 30 31 BUN 10 13 Creatinine 0.67 0.75 Estimated GFR > 60 > 60 BUN/Creatinine Ratio 14.9 17.3 Glucose 113 H 164 H Calcium 7.9 L 7.8 L Ur Random Sodium 01/08/24 03:36 ABG pH ABG pCO2 ABG pO2 ABG HCO3 ABG Total CO2 ABG O2 Saturation ABG Base Excess O2 Delivery Device FiO2 Sodium 111 L* Potassium 4.0 Chloride 73 L* Carbon Dioxide 30 BUN 15 Creatinine 0.68 Estimated GFR > 60 BUN/Creatinine Ratio 22.1 H Glucose 105 Calcium 7.9 L Ur Random Sodium [facility] Medical History Right orbital fracture Excessive cerumen in both ear canals Actinic keratoses Wears glasses Psoriatic arthritis (~2017) Stroke (~2012) Mumps (~194) Measles (~194) Chicken pox (~194) Hearing loss Glaucoma (~2015) Cataracts, bilateral (~2016) Gastric ulcer (~2012) Coronary artery disease (~2012) Carotid artery disorder (~2013) Surgical History Anesthesia History of eye surgery (~08/23/17) History of plastic surgery (~08/21/17) History of cataract removal with insertion of prosthetic lens Status post carotid surgery (~04/07/14) History of heart bypass surgery (~09/18/12) Status post total hip replacement, left (~1989) Family History Father History of heart disease History of heart bypass surgery Mother Diabetes mellitus Brother History of heart disease History of heart bypass surgery Social History household members: significant other Smoking Status: Never smoker Assessment & Plan Assessment & Plan narrative: Hyponatremia, present on admission and active. - given 100 cc of hypertonic, 3% saline in the ED for Na of 105 - ICU admission - BMP q 8 Acute Metabolic Encephalopathy, present on admission and improving. - 2nd to hyponatremia - w/o evidence of stroke or infection Acute on chronic HFpEF, present on admission and active. - continue diuresis with Lasix IV q.12 hours HTN, present on admission and active. - uncontrolled on admission - Coreg, Valsartan, Lasix - prn hydralzine GERD, present on admission and active. - PPI Carotid Stenosis, CAD. Stable. - ASA, statin, Imdur PLAN: -a third dose of hypertonic saline this AM. -we will fluid restrict and diurese. -2D echo to assess LV EF with history of heart failure. -monitor mental status. It is improving. OOB, PT eval. DIEGO/Dispo: SNF in 2-3 days when sodium is corrected. Time-Based Coding :: 30 min spent with patient and on the chart (including review of chart, obtaining history, exam, reviewing outside data, placing orders, documenting exam and treatment plan, and counseling patient) on 01/07.
[2024-01-08] MEDS: ISOSORBIDE MONONITRATE ER 30 MG TABLET PO (08:31)
[2024-01-08] MEDS: VALSARTAN 80 MG TABLET PO ×2 (08:31→20:57)
[2024-01-08] MEDS: SODIUM CHLORIDE 3 % 100 ML 20 ML IV (08:31)
[2024-01-08] MEDS: ASPIRIN EC 81 MG TABLET PO (08:31)
[2024-01-08] MEDS: carvediloL 3.125 MG TABLET 6.25 MG PO ×2 (08:31→20:56)
[2024-01-08 10:34] LABS: BUN Creatinine Ratio 21.2 (6-22); Blood Urea Nitrogen 14 mg/dL (9-20); Calcium 7.8 mg/dL (8.4-10.2); Carbon Dioxide 32 mmol/L (22-32); Estimated Glomerular Filt Rate > 60 mL/min (>60); Glucose 184 mg/dL (80-110); HEMOLYSIS < 15 (0-50); Potassium 3.7 mmol/L (3.4-5.1)
[2024-01-08 10:36] LABS: Chloride 74 mmol/L (98-107); Sodium 109 mmol/L (137-145)
[2024-01-08] MEDS: FUROSEMIDE 40 MG/4 ML VIAL IV ×2 (11:22→23:15)
[2024-01-08 12:10] LABS: Osmolality Urine 344 mOsmol/kg (.); Osmolality, Serum 219 mOsmol/kg (280-301)
--- NOTE | 2024-01-08 12:13 | PT-IP ANOTE ---
PT order received. PT reviews chart and therapists check in with nsg who reports that pt is still pretty confused. Pt con't with hyponatremia. Nsg recommends attempt next date and therapists in agreement.
--- NOTE | 2024-01-08 12:14 | OT.IPNOTE ---
Per nursing, pt continues to have low Na and confused and best to hold therapy today and check on pt tomorrow.
[2024-01-08] MEDS: SODIUM CHLORIDE 3 % 500 ML 40 ML IV (14:24)
--- NOTE | 2024-01-08 15:37 | CM.DPC ---
DCP Cont: Per MD and RN, attempting to transfer patient for higher level of care and Nephrology needs. Potential for [place] or [place] pending bed availability and accepting physiician. PT/OT on hold. SW met bedside with pt and his life partner Soila and they are aware of transfer and hopeful for [facility] since pt's cardiology team is there. Plan: SW to follow for likely hospital transfer for higher level of care needs. FREEMAN Evans
--- NOTE | 2024-01-08 16:49 | P.DS_ITS ---
History of Present Illness History of Present Illness Chief complaint: Weakness/AMS Narrative: From night doctor: 83-year-old gentleman with a history of coronary artery disease, hypertension, prior stroke, psoriatic arthritis, chronic left hip pain, elevated blood sugars who is brought in by medics at the request of his for weakness, falls and altered mental status for the last 2 days. is having difficulty caring for him at home. Patient is complaining of nausea at this time but is otherwise pleasantly confused. Not complaining of chest pain, dyspnea, orthopnea, not noting new lower extremity edema. No complaints of dysuria, frequency, flank pain. 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 S: The patient isn't able to add much additional history. He does state he has in a hard time eating today and reaching his fluids. He can not say much about whether or not he has had increased swelling recently. He denies any shortness a breath but has a cough. The nurse notes pulmonary congestion and he does have pedal edema bilaterally. His sodium has not improved with saline over the last 8 hours. Discharge Providers Provider Date of admission: 01/07/24 01:19 Discharge Date: 01/08/24 Primary care physician: Deep Singh DO Consults: 01/06/24 23:22 [place] to [facility] [place] [facility] Stat Comment: Bait Painter Consult needed for:: Unable to care for self 01/07/24 04:13 Consult to [facility] [place] [facility] Routine Comment: Bait Painter Consult needed for:: Unable to care for self 01/08/24 10:43 Consult to Occupational Therapy Evaluate & Treat Comment: Physician Instructions: Evaluate and treat Consult to Physical Therapy Evaluate & Treat Comment: Physician Instructions: Evaluate and Treat Discharge provider: Jim Pardo MD Summary Hospital Course Discharge Diagnosis: 1. Hyponatremia, present on admission and active. 2. Acute Metabolic Encephalopathy, present on admission and improving. - 2nd to hyponatremia - w/o evidence of stroke or infection 3. Acute on chronic HFpEF, present on admission and active. - continue diuresis with Lasix IV q.12 hours 4. HTN, present on admission and active. - uncontrolled on admission - Coreg, Valsartan, Lasix - prn hydralzine 5. GERD, present on admission and active. - PPI 6. Carotid Stenosis, CAD. Stable. - ASA, statin, Imdur Hospital Course: The patient was admitted with severe hyponatremia and confusion. He initially received hypertonic saline as a bolus with minimal improvement after being given hypertonic bolus. The patient was started on fluid restriction and diuresis and received a 2nd dose of hypertonic later in the 1st day of his admission with minimal improvement. He began to diurese and had a 3rd dose of hypertonic on the morning following his admission and had improved his sodium from 105-111. The patient then had a sodium of 109 4 hours later. The case was discussed with Nephrology at [facility]. They recommended a hypertonic infusion with Q 1 hour sodiums and transfer to a medical center with Nephrology on premises. [facility] was full and unable to accept in transfer and the patient was discussed with [facility]. The patient was started on an infusion after discussions with Nephrology with frequent sodium checks. [facility] was able to accept him as an ICU to ICU transfer for severe hyponatremia. The patient requires a very slow correction given his starting value of 105 and there were no issues with worsening sodium from medical therapy during his hospital encounter. His mental status did improve to some degree after his initial 24 hours in the hospital as well. Status at Discharge Cognitive/behavioral status at discharge: confused Functional status at discharge: uses cane/walker Overall status at discharge: patient is not back to baseline Time Spent with Patient Time spent: Greater than 30 minutes Exam Vital Signs (past 8 hours): - 01/08/24 09:00 01/08/24 09:01 01/08/24 09:01 Pulse Rate 75 74 Respiratory Rate 25 H 27 H Blood Pressure 149/73 H 149/73 H Pulse Oximetry 93 93 01/08/24 10:00 01/08/24 10:01 01/08/24 10:01 Pulse Rate 66 66 Respiratory Rate 25 H 29 H Blood Pressure 115/56 L Pulse Oximetry 92 92 01/08/24 11:00 01/08/24 11:00 01/08/24 12:00 Pulse Rate 62 Respiratory Rate 28 H Blood Pressure 123/55 L 119/60 Pulse Oximetry 89 L 01/08/24 12:00 01/08/24 13:00 01/08/24 14:00 Pulse Rate 66 65 67 Respiratory Rate 28 H 27 H 28 H Blood Pressure 119/60 Pulse Oximetry 100 97 97 01/08/24 14:01 01/08/24 14:01 01/08/24 15:00 Pulse Rate 67 Respiratory Rate 23 Blood Pressure 116/56 L 129/61 Pulse Oximetry 96 01/08/24 15:00 Pulse Rate 68 Respiratory Rate 27 H Blood Pressure 129/61 Pulse Oximetry 97 Fraction of Inspired Oxygen 28 SaO2/FiO2 Ratio 328 Oxygen Delivery Method Nasal Cannula Oxygen Flow Rate 2 Narrative Exam Narrative: NAD, alert and oriented to person and place. Fluent speech. Some elements of confusion during conversation. Lungs are clear, normal rate and effort. Heart is regular, no murmur gallop or rub. Abdomen is soft, non distended. Extremities are free of edema. Objective ECG Impression: NSR Imaging CT scan - head: Radiologist's impression: No acute changes. Echo: Radiologist's impression: The left ventricle is normal in size and wall thickness. The ejection fraction is estimated to be 40-45%. Septal bounce present. Septum appears to be hypokinetic. The right ventricle is normal in size and function. There is mild mitral regurgitation. The aortic valve is grossly normal. The aortic valve is not well visualized. Overall morphologically no significant aortic cusp restriction. The peak aortic velocity is 2.2 m/sec. There is no hemodynamically significant valvular aortic stenosis. There is trace tricuspid regurgitation. The right ventricular systolic pressure is estimated to be at least 55 mmHg based on an estimated right atrial pressure of 15 mm Hg. There is moderate pulmonary hypertension. Labs 01/07/24 04:53 01/08/24 09:55 Labs: Laboratory Results - last 24 hr 01/07/24 01/07/24 01/08/24 01:54 21:40 03:36 Sodium 109 L* 111 L* Potassium 4.1 4.0 Chloride 72 L* 73 L* Carbon Dioxide 31 30 BUN 13 15 Creatinine 0.75 0.68 Estimated GFR > 60 > 60 BUN/Creatinine Ratio 17.3 22.1 H Glucose 164 H 105 Serum Osmolality 219 L Calcium 7.8 L 7.9 L Urine Osmolality 344 01/08/24 09:55 Sodium 109 L* Potassium 3.7 Chloride 74 L* Carbon Dioxide 32 BUN 14 Creatinine 0.66 Estimated GFR > 60 BUN/Creatinine Ratio 21.2 Glucose 184 H Serum Osmolality Calcium 7.8 L Urine Osmolality [facility] Medical History Right orbital fracture Excessive cerumen in both ear canals Actinic keratoses Wears glasses Psoriatic arthritis (~2017) Stroke (~2012) Mumps (~1946) Measles (~1946) Chicken pox (~1946) Hearing loss Glaucoma (~2015) Cataracts, bilateral (~2015) Gastric ulcer (~2012) Coronary artery disease (~2012) Carotid artery disorder (~2013) Surgical History Anesthesia History of eye surgery (~08/23/17) History of plastic surgery (~08/21/17) History of cataract removal with insertion of prosthetic lens Status post carotid surgery (~04/07/14) History of heart bypass surgery (~09/18/12) Status post total hip replacement, left (~1989) Family History Father History of heart disease History of heart bypass surgery Mother Diabetes mellitus Brother History of heart disease History of heart bypass surgery Social History household members: significant other Smoking Status: Never smoker Discharge Assessment & Plan Assessment and Plan Assessment: 1. Hyponatremia, present on admission and active. 2. Acute Metabolic Encephalopathy, present on admission and improving. - 2nd to hyponatremia - w/o evidence of stroke or infection 3. Acute on chronic HFpEF, present on admission and active. - continue diuresis with Lasix IV q.12 hours 4. HTN, present on admission and active. - uncontrolled on admission - Coreg, Valsartan, Lasix - prn hydralzine 5. GERD, present on admission and active. - PPI 6. Carotid Stenosis, CAD. Stable. - ASA, statin, Imdur Plan of Treatment: Transferred to [facility] for ICU level care and nephrology consultation for very severe hyponatremia. Discharge Plan Discharge Plan Patient Disposition: [facility] Other facility: [facility] Under care of provider: Dr. Garrison Discharge orders & Medications Prescriptions: No Action aspirin 81 MG tablet,delayed release (DR/EC) 81 mg PO QDAY Qty: 0 isosorbide mononitrate 30 MG tablet extended release 24 hr 30 mg PO QAM Qty: 0 magnesium oxide 400 MG tablet 400 mg PO QDAY Qty: 0 nitroglycerin [Nitrostat] 0.4 MG tablet, sublingual 0.4 mg Sublingual PRN PRN (Reason: Chest Pain) Qty: 0 PreserVision AREDS-2 1 EACH capsule 2 cap PO QDAY Qty: 0 [SOSA & CELERY EX] 1 tab PO BID Qty: 0 azathioprine 50 mg tablet 50 mg PO DAILY Qty: 30 0RF omeprazole 20 mg capsule,delayed release(DR/EC) See Rx Instructions .ROUTE .COMPLEX Qty: 180 3RF Dose Instruction: TAKE ONE CAPSULE BY MOUTH TWICE DAILY NEEDED FOR HEARTBURN Rx Instructions: TAKE ONE CAPSULE BY MOUTH TWICE DAILY NEEDED FOR HEARTBURN carvedilol [Coreg] 6.25 mg tablet 6.25 mg PO BID Qty: 180 0RF atorvastatin 20 mg tablet 20 mg PO BEDTIME Qty: 90 0RF Rx Instructions: PT WILL NEED TO BE SEEN BEFORE NEXT RENEWAL 10/15/23 ascorbic acid (vitamin C) 1,000 mg tablet 1 g PO Q6H furosemide 40 mg tablet 40 mg PO DAILY vitamin B complex [B Complex-Vitamin B12] Tablet 1 tab PO DAILY valsartan 80 mg tablet 80 mg PO BID Follow up/Referrals: Deep Singh DO [Primary Care Provider] - Discharge Data Primary Care Provider: Deep Singh
[2024-01-08 16:51] LABS: BUN Creatinine Ratio 16.5 (6-22); Blood Urea Nitrogen 16 mg/dL (9-20); Calcium 7.6 mg/dL (8.4-10.2); Carbon Dioxide 31 mmol/L (22-32); Estimated Glomerular Filt Rate > 60 mL/min (>60); Glucose 121 mg/dL (80-110); HEMOLYSIS < 15 (0-50); Potassium 4.3 mmol/L (3.4-5.1)
[2024-01-08 16:59] LABS: Chloride 73 mmol/L (98-107); Sodium 110 mmol/L (137-145)
[2024-01-08 18:47] LABS: Sodium 110 mmol/L (137-145)
[2024-01-08 20:06] LABS: Sodium 111 mmol/L (137-145)
[2024-01-08] MEDS: ATORVASTATIN 20 MG TABLET PO (20:56)
[2024-01-08 22:35] LABS: BUN Creatinine Ratio 21.4 (6-22); Blood Urea Nitrogen 18 mg/dL (9-20); Calcium 8.1 mg/dL (8.4-10.2); Carbon Dioxide 32 mmol/L (22-32); Chloride 77 mmol/L (98-107); Estimated Glomerular Filt Rate > 60 mL/min (>60); Glucose 110 mg/dL (80-110); HEMOLYSIS < 15 (0-50); Potassium 4.2 mmol/L (3.4-5.1)
[2024-01-08 22:38] LABS: Sodium 111 mmol/L (137-145)
[2024-01-09] VITALS (17 sets, daily range): BP systolic 112–183; BP diastolic 53–86; PULSE 57–80; RESP 17–36; TEMP 35.6–36.4; O2SAT 94–100
[2024-01-09] MEDS: SODIUM CHLORIDE 3 % 500 ML 40 ML IV (03:36)
[2024-01-09 04:26] LABS: BUN Creatinine Ratio 22.9 (6-22); Blood Urea Nitrogen 16 mg/dL (9-20); Carbon Dioxide 32 mmol/L (22-32); Chloride 80 mmol/L (98-107); Estimated Glomerular Filt Rate > 60 mL/min (>60); Glucose 113 mg/dL (80-110); HEMOLYSIS < 15 (0-50); Potassium 3.9 mmol/L (3.4-5.1)
[2024-01-09 04:31] LABS: Sodium 114 mmol/L (137-145)
--- NOTE | 2024-01-09 04:45 | PC.NURSE ---
Remained on 40mL/hr of 3% saline. Na checks between 111-114 this shift. Weight up this AM despite IVP lasix. +2 edema. Still waiting transfer to [place]. Pt's partner updated last night.
[2024-01-09] MEDS: PANTOPRAZOLE DR 40 MG TABLET PO (07:35)
--- NOTE | 2024-01-09 08:40 | OT.IPNOTE ---
Pt to be transferred to higher level of care, therefore discharge OT eval orders.
[2024-01-09] MEDS: carvediloL 3.125 MG TABLET 6.25 MG PO (08:45)
[2024-01-09] MEDS: ASPIRIN EC 81 MG TABLET PO (08:45)
[2024-01-09] MEDS: VALSARTAN 80 MG TABLET PO (08:45)
[2024-01-09] MEDS: ISOSORBIDE MONONITRATE ER 30 MG TABLET PO (08:45)
--- NOTE | 2024-01-09 09:09 | PT-IP ANOTE ---
PT eval received EMR reviewed. Pt continues to have decrease sodium level: 114. talked with nurse and pt is pending transfer to another facility for higher level of care. will d/c PT eval order . pt is not appropriate for PT at this time.
--- NOTE | 2024-01-09 10:08 | DI.RAD.S_ITS ---
PROCEDURE: XR CHEST 1V INDICATIONS: PICC placement TECHNIQUE: One view of the chest was acquired. COMPARISON: [facility], CR, XR CHEST 1V, 01/06/2024, 23:22. FINDINGS: Surgical changes and devices: Left arm PICC line, the tip which projects to the distal superior vena cava. Lungs and pleura: Lungs are clear. No pleural effusions or pneumothorax. Elevation of right hemidiaphragm, as before. Mediastinum: Mediastinal contours appear normal. Cardiomegaly. Bones and chest wall: No suspicious bony lesions. Overlying soft tissues appear unremarkable. IMPRESSION: PICC line tip projects to the distal superior vena cava. Cardiomegaly. Dictated by: Oj Arciniega M.D. on 01/09/2024 at 10:30 Approved by: Oj Arciniega M.D. on 01/09/2024 at 10:32
--- NOTE | 2024-01-09 10:13 | PC.NURSE ---
Late entry 01/08/24 [id number] - Per Dr Pardo, patient being transferred to [facility], accepted and awaiting bed placement.
--- NOTE | 2024-01-09 10:23 | CM.DPC ---
DCP Continued: Reviewed EMR and team rounds for pt?s medical status.Per MD and RN, attempting to transfer patient for higher level of care and Nephrology needs. Per Provider, pt has been accepted at [facility] for further observation at higher level of care. PT/OT on hold today. Plan: Anticipating transfer today to [facility] for higher level of care needs. CM team following for any discharge needs that may arise. QUINN Woodard
[2024-01-09] MEDS: FUROSEMIDE 40 MG/4 ML VIAL 60 MG IV (11:00)
[2024-01-09 11:03] LABS: Blood Urea Nitrogen 14 mg/dL (9-20); Carbon Dioxide 32 mmol/L (22-32); Chloride 82 mmol/L (98-107); Estimated Glomerular Filt Rate > 60 mL/min (>60); Glucose 107 mg/dL (80-110); HEMOLYSIS < 15 (0-50)
[2024-01-09 11:09] LABS: Sodium 119 mmol/L (137-145)
--- NOTE | 2024-01-09 11:19 | PM.DS.1 ---
History of Present Illness History of Present Illness Date Patient Seen: 01/09/24 Time Patient Seen: 11:19 Chief complaint: Weakness/AMS Narrative: Per admitting provider, From night doctor: 83-year-old gentleman with a history of coronary artery disease, hypertension, prior stroke, psoriatic arthritis, chronic left hip pain, elevated blood sugars who is brought in by medics at the request of his for weakness, falls and altered mental status for the last 2 days. is having difficulty caring for him at home. Patient is complaining of nausea at this time but is otherwise pleasantly confused. Not complaining of chest pain, dyspnea, orthopnea, not noting new lower extremity edema. No complaints of dysuria, frequency, flank pain. 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 S: The patient isn't able to add much additional history. He does state he has in a hard time eating today and reaching his fluids. He can not say much about whether or not he has had increased swelling recently. He denies any shortness a breath but has a cough. The nurse notes pulmonary congestion and he does have pedal edema bilaterally. His sodium has not improved with saline over the last 8 hours. Discharge Providers Provider Date of admission: 01/07/24 01:19 Discharge Date: 01/09/24 Primary care physician: Deep Singh DO Consults: 01/06/24 23:22 Consult to [facility] - Typing Office Worker Stat Comment: Typing Office Worker Consult needed for:: Unable to care for self 01/07/24 04:13 Consult to [facility] - Typing Office Worker Routine Comment: Typing Office Worker Consult needed for:: Unable to care for self 01/08/24 10:43 Consult to Occupational Therapy Evaluate & Treat Comment: Physician Instructions: Evaluate and treat Consult to Physical Therapy Evaluate & Treat Comment: Physician Instructions: Evaluate and Treat Discharge provider: Misbah Taylor DO Summary Hospital Course Discharge Diagnosis: 1. Hyponatremia, present on admission and active. 2. Acute Metabolic Encephalopathy, present on admission and improving. 3. Acute on chronic HFpEF, present on admission and active. 4. HTN, present on admission and active. 5. GERD, present on admission and active. 6. Carotid Stenosis, CAD. Stable. Hospital Course: The patient was admitted with severe hyponatremia and confusion. He initially received hypertonic saline as a bolus with minimal improvement after being given hypertonic bolus. The patient was started on fluid restriction and diuresis and received a 2nd dose of hypertonic later in the 1st day of his admission with minimal improvement. He began to diurese and had a 3rd dose of hypertonic on the morning following his admission and had improved his sodium from 105-111. The patient then had a sodium of 109 4 hours later. The case was discussed with Nephrology at [facility]. They recommended a hypertonic infusion with Q 1 hour sodiums and transfer to a medical center with Nephrology on premises. [facility] was full and unable to accept in transfer and the patient was discussed with [facility]. The patient was started on an infusion after discussions with Nephrology with frequent sodium checks. [facility] able to accept him as an ICU to ICU transfer for severe hyponatremia. His mentation has improved but he remains still quite encephalopathic. patient was accetped on 01/07 for transfer, but did not transfer until 01/08. Overnight from 01/07 to 01/08, he remained on 40 cc / hr of 3% NS and his sodium has improved to 119 as of 10:25 AM for a 24 hour correction of 10 (109 yesterday at 10AM). His furosemide was increased from 40 mg BID to 60 mg BID for shortness of breath with some improvement. His 3% was shut off once his most recent lab returned as goal sodium is around 117 at 24 hours. Discussed with keypunch operators supervisor at [facility]. Additionally, patient's urine sodium and osmolality were 98 and 344 respectively on admission (01/06). Next planned sodium was for 2pm on 01/08, continue assessment and management per keypunch operators supervisor and nephrology at accepting facility. Status at Discharge Cognitive/behavioral status at discharge: confused Functional status at discharge: uses cane/walker Overall status at discharge: patient is not back to baseline Time Spent with Patient Time spent: Greater than 30 minutes Exam Vital Signs (past 8 hours): - 01/09/24 04:00 01/09/24 05:01 01/09/24 05:01 Temperature 96.1 F L Pulse Rate 64 64 Respiratory Rate 24 27 H Blood Pressure 128/60 118/57 L Pulse Oximetry 95 95 Oxygen Delivery Method Oxygen Flow Rate 2 Fraction of Inspired Oxygen 01/09/24 05:38 01/09/24 05:39 01/09/24 06:00 Temperature Pulse Rate 57 L Respiratory Rate 27 H Blood Pressure 151/86 H Pulse Oximetry 98 Oxygen Delivery Method Nasal Cannula Oxygen Flow Rate 4 2 Fraction of Inspired Oxygen 01/09/24 06:24 01/09/24 07:00 01/09/24 07:00 Temperature Pulse Rate 68 Respiratory Rate 33 H Blood Pressure Pulse Oximetry 98 Oxygen Delivery Method Nasal Cannula Oxygen Flow Rate 2 Fraction of Inspired Oxygen 01/09/24 07:01 01/09/24 07:01 01/09/24 08:00 Temperature Pulse Rate 68 67 Respiratory Rate 27 H 33 H Blood Pressure 183/74 H Pulse Oximetry 98 99 Oxygen Delivery Method Oxygen Flow Rate Fraction of Inspired Oxygen 01/09/24 08:00 01/09/24 08:01 01/09/24 08:01 Temperature 97.1 F L Pulse Rate 66 Respiratory Rate 21 Blood Pressure 135/63 Pulse Oximetry 100 Oxygen Delivery Method Oxygen Flow Rate Fraction of Inspired Oxygen 01/09/24 09:00 01/09/24 09:01 01/09/24 09:01 Temperature Pulse Rate 59 L 60 Respiratory Rate 17 21 Blood Pressure 112/53 L Pulse Oximetry 100 100 Oxygen Delivery Method Oxygen Flow Rate Fraction of Inspired Oxygen 01/09/24 09:48 01/09/24 10:00 Temperature Pulse Rate 80 Respiratory Rate 25 H Blood Pressure Pulse Oximetry 100 98 Oxygen Delivery Method Nasal Cannula Oxygen Flow Rate 2 Fraction of Inspired Oxygen 28 Fraction of Inspired Oxygen 28 SaO2/FiO2 Ratio 357 Oxygen Delivery Method Nasal Cannula Oxygen Flow Rate 2 Narrative Exam Narrative: NAD, alert and oriented to person and place. Fluent speech but quite confused still. Lungs are clear, normal rate and effort. Heart is regular, no murmur gallop or rub. Abdomen is soft, non distended. Extremities are free of edema. Objective Labs 01/07/24 04:53 01/09/24 10:25 Labs: Laboratory Results - last 24 hr 01/07/24 01/08/24 01/08/24 01:54 16:19 18:25 Sodium 110 L* 110 L* Potassium 4.3 Chloride 73 L* Carbon Dioxide 31 BUN 16 Creatinine 0.97 Estimated GFR > 60 BUN/Creatinine Ratio 16.5 Glucose 121 H Serum Osmolality 219 L Calcium 7.6 L Urine Osmolality 344 01/08/24 01/08/24 01/09/24 19:50 22:00 04:08 Sodium 111 L* 111 L* 114 L* Potassium 4.2 3.9 Chloride 77 L 80 L Carbon Dioxide 32 32 BUN 18 16 Creatinine 0.84 0.70 Estimated GFR > 60 > 60 BUN/Creatinine Ratio 21.4 22.9 H Glucose 110 113 H Serum Osmolality Calcium 8.1 L 8.0 L Urine Osmolality 01/09/24 10:25 Sodium 119 L* Potassium 4.0 Chloride 82 L Carbon Dioxide 32 BUN 14 Creatinine 0.56 L Estimated GFR > 60 BUN/Creatinine Ratio 25.0 H Glucose 107 Serum Osmolality Calcium 8.0 L Urine Osmolality [facility] Medical History Right orbital fracture Excessive cerumen in both ear canals Actinic keratoses Wears glasses Psoriatic arthritis (~2017) Stroke (~2012) Mumps (~1946) Measles (~1946) Chicken pox (~1946) Hearing loss Glaucoma (~2015) Cataracts, bilateral (~2015) Gastric ulcer (~2012) Coronary artery disease (~2012) Carotid artery disorder (~2013) Surgical History Anesthesia History of eye surgery (~08/23/17) History of plastic surgery (~08/21/17) History of cataract removal with insertion of prosthetic lens Status post carotid surgery (~04/07/14) History of heart bypass surgery (~09/18/12) Status post total hip replacement, left (~1989) Family History Father History of heart disease History of heart bypass surgery Mother Diabetes mellitus Brother History of heart disease History of heart bypass surgery Social History household members: significant other Smoking Status: Never smoker Discharge Assessment & Plan Assessment and Plan Assessment: 1. Hyponatremia, present on admission and active. 2. Acute Metabolic Encephalopathy, present on admission and improving. - 2nd to hyponatremia - w/o evidence of stroke or infection 3. Acute on chronic HFpEF, present on admission and active. - continue diuresis with Lasix IV q.12 hours 4. HTN, present on admission and active. - uncontrolled on admission - Coreg, Valsartan, Lasix - prn hydralzine 5. GERD, present on admission and active. - PPI 6. Carotid Stenosis, CAD. Stable. - ASA, statin, Imdur Plan of Treatment: Transferred to [facility] for ICU level care and nephrology consultation for very severe hyponatremia. Discharge Plan Discharge Plan Patient Disposition: [facility] Other facility: [facility] Under care of provider: Dr. Garrison Discharge Data Primary Care Provider: Deep Singh
[2024-01-09] MEDS: ONDANSETRON 4 MG/2 ML INJ IV (12:25)
== END 2024-01-09 12:37 | disposition short-term general hospital (02) | DRG 640 ==
LOC: ED 23:42 → AC 01-07 01:20 → ICU 01-07 01:57
PROVIDERS: Hospitalist; Internal Medicine; Admitting Provider Internal Medicine; Emergency Provider Emergency Medicine; Family Provider Family Medicine; PCP Family Medicine; Referring Provider Emergency Medicine; Visit Provider Internal Medicine
DX: E87.1 Hypo-osmolality and hyponatremia (principal); G93.41 Metabolic encephalopathy; I50.33 Acute on chronic diastolic (congestive) heart failure; I25.10 Atherosclerotic heart disease of native coronary artery without angina pectoris; L40.50 Arthropathic psoriasis, unspecified; H91.90 Unspecified hearing loss, unspecified ear; K21.9 Gastro-esophageal reflux disease without esophagitis; I11.0 Hypertensive heart disease with heart failure; I65.29 Occlusion and stenosis of unspecified carotid artery; Z86.73 Personal history of transient ischemic attack (TIA), and cerebral infarction without residual deficits
CPT/HCPCS: 36415; 36569; 36600; 70450; 71045; 80048; 80053; 81001; 83690; 83735; 83880; 83930; 83935; 84145; 84295; 84300; 84484; 85025; 87633; 87797; 93005; 93010; 93306; 94762; 96374; 99284; 99291; J1940; J2405

== ENCOUNTER → 2024-02-20 15:04 | Outpatient (CLI) | payer OTHER, SELFPAY ==
[2024-01-07 03:42] VITALS: BMI 36.1
--- NOTE | 2024-02-20 15:07 | DI.US.S_ITS ---
PROCEDURE: US CAROTID DOPPLER BI INDICATIONS: CAROTID ARTERY STENOSIS TECHNIQUE: Color and pulse Doppler interrogation was performed of both carotid systems, with image documentation and velocity measurements. COMPARISON: Outside Facility, , US CAROTID DOPPLER, 03/13/2022, 15:19. [facility], , CAROTID ARTERY DOPPLER BILAT, 02/18/2014, 16:06. FINDINGS: Stenosis calculations are based on SRU (Society of Radiologists in Ultrasound) criteria. Right side: Brachial blood pressure: 117/57 mm Hg. Common carotid artery peak systolic velocity: 80 cm/sec. Internal carotid artery peak systolic velocity: 82 cm/sec. Internal carotid artery end diastolic velocity: 9 cm/sec. External carotid artery peak systolic velocity: 119 cm/sec. ICA/CCA peak systolic ratio: 1.0 . Robert scale imaging description: Stable postsurgical changes. Percent internal carotid artery stenosis: Less than 50%. Vertebral artery: Flow direction is antegrade. Left side: Brachial blood pressure: 112/58 mm Hg. Common carotid artery peak systolic velocity: 61 cm/sec. Internal carotid artery peak systolic velocity: 271 cm/sec. Internal carotid artery end diastolic velocity: 35 cm/sec. External carotid artery peak systolic velocity: 201 cm/sec. ICA/CCA peak systolic ratio: 4.4 . Robert scale imaging description: Extensive atherosclerotic plaque Percent internal carotid artery stenosis: 70% to near occlusion Vertebral artery: Flow direction is antegrade. IMPRESSION: 1. Left internal carotid artery demonstrates greater than 70% stenosis to near occlusion as seen on the exam from 03/13/2022. 2. Status post right carotid endarterectomy without recurrent stenosis. 3. Antegrade flow in the vertebral arteries bilaterally. Approved by: Kevon Hi M.D. on 02/25/2024 at 10:31
[2024-02-20 17:41] LABS: Add Manual Diff / Slide Review NO; Basophils Absolute Auto 0 /uL (0-100); Basophils Percent Auto 0.4 % (0-2); Eosinophils Absolute Auto 0 /uL (0-450); Eosinophils Percent Auto 0.5 % (2-4); Hematocrit 33.5 % (41-53); Lymphocytes Absolute Auto 1600 /uL (1100-4500); Lymphocytes Percent Auto 22.8 % (25-40); Mean Corpuscular HGB Conc 32.9 % (30-36); Mean Corpuscular Hemoglobin 30.1 PG (26-34); Mean Corpuscular Volume 91.4 fL (80-100); Monocytes Absolute Auto 600 /uL (0-900); Monocytes Percent Auto 8.6 % (3-14); Neutrophils Absolute Auto 4700 /uL (1500-7000); Neutrophils Percent Auto 67.7 % (50-75); Platelet Count 158 X10^3/uL (150-400); Red Blood Cell Count 3.66 X10^6/uL (4.5-5.9); Red Cell Distribution Width 16.5 % (11.6-14.8)
[2024-02-20 18:07] LABS: Erythrocyte Sedimentation Rate 17 MM/HR (0-15)
[2024-02-20 18:12] LABS: Alanine Aminotransferase 11 IU/L (<50); Albumin 3.7 g/dL (3.5-5.0); Albumin Globulin Ratio 1.3 (1.0-2.8); Alkaline Phosphatase 113 U/L (38-126); Aspartate Aminotransferase 20 IU/L (17-59); BUN Creatinine Ratio 14.7 (6-22); Bilirubin Total 0.7 mg/dL (0.2-1.3); Blood Urea Nitrogen 11 mg/dL (9-20); C-Reactive Protein Quant < 0.5 mg/dL (<1.0); Calcium 8.8 mg/dL (8.4-10.2); Carbon Dioxide 29 mmol/L (22-32); Chloride 94 mmol/L (98-107); Estimated Glomerular Filt Rate > 60 mL/min (>60); Globulin 2.9 g/dL (1.7-4.1); Glucose 124 mg/dL (80-110); HEMOLYSIS < 15 (0-50); Sodium 130 mmol/L (137-145); Total Protein 6.6 g/dL (6.3-8.2)
[2024-02-20 18:32] LABS: Hemoglobin A1C% w Est Avg Glu 5.2 % (4.0-6.0)
== END ==
PROVIDERS: Family Provider Family Medicine; PCP Family Medicine; Referring Provider Surgery; Visit Provider Surgery
DX: I65.22 Occlusion and stenosis of left carotid artery (principal); E11.65 Type 2 diabetes mellitus with hyperglycemia; E87.1 Hypo-osmolality and hyponatremia; I77.9 Disorder of arteries and arterioles, unspecified
CPT/HCPCS: 36415; 80053; 83036; 85025; 85651; 86140; 93880

== ENCOUNTER → 2024-03-27 12:19 | Outpatient (CLI) | payer OTHER, SELFPAY ==
[2024-01-07 03:42] VITALS: BMI 36.1
[2024-03-27 13:12] LABS: Alanine Aminotransferase 13 IU/L (<50); Albumin 3.8 g/dL (3.5-5.0); Albumin Globulin Ratio 1.4 (1.0-2.8); Alkaline Phosphatase 112 U/L (38-126); Aspartate Aminotransferase 20 IU/L (17-59); BUN Creatinine Ratio 16.7 (6-22); Bilirubin Total 0.8 mg/dL (0.2-1.3); Blood Urea Nitrogen 12 mg/dL (9-20); Calcium 8.9 mg/dL (8.4-10.2); Carbon Dioxide 30 mmol/L (22-32); Chloride 91 mmol/L (98-107); Estimated Glomerular Filt Rate > 60 mL/min (>60); Globulin 2.8 g/dL (1.7-4.1); Glucose 167 mg/dL (80-110); HEMOLYSIS < 15 (0-50); Potassium 4.7 mmol/L (3.4-5.1); Sodium 128 mmol/L (137-145); Total Protein 6.6 g/dL (6.3-8.2)
== END ==
PROVIDERS: Family Provider Family Medicine; PCP Family Medicine; Referring Provider Family Medicine; Visit Provider Family Medicine
DX: E87.1 Hypo-osmolality and hyponatremia (principal)
CPT/HCPCS: 36415; 80053

== ENCOUNTER → 2024-04-10 12:02 | Outpatient (CLI) | payer OTHER, SELFPAY ==
[2024-01-07 03:42] VITALS: BMI 36.1
[2024-04-10 12:48] LABS: Add Manual Diff / Slide Review NO; Basophils Absolute Auto 0 /uL (0-100); Basophils Percent Auto 0.7 % (0-2); Eosinophils Absolute Auto 100 /uL (0-450); Eosinophils Percent Auto 1.3 % (2-4); Hematocrit 37.3 % (41-53); Hemoglobin 12.4 g/dL (13.5-17.5); Lymphocytes Absolute Auto 1200 /uL (1100-4500); Lymphocytes Percent Auto 19.7 % (25-40); Mean Corpuscular HGB Conc 33.3 % (30-36); Monocytes Absolute Auto 700 /uL (0-900); Monocytes Percent Auto 11.2 % (3-14); Neutrophils Absolute Auto 4100 /uL (1500-7000); Neutrophils Percent Auto 67.1 % (50-75); Platelet Count 208 X10^3/uL (150-400); Red Blood Cell Count 4.15 X10^6/uL (4.5-5.9); Red Cell Distribution Width 16.3 % (11.6-14.8); White Blood Cell Count 6.1 X10^3/uL (4.5-11.0)
[2024-04-12 13:34] LABS: BUN Creatinine Ratio 14.1 (6-22); Blood Urea Nitrogen 10 mg/dL (9-20); Calcium 8.7 mg/dL (8.4-10.2); Carbon Dioxide 32 mmol/L (22-32); Chloride 89 mmol/L (98-107); Estimated Glomerular Filt Rate > 60 mL/min (>60); Glucose 128 mg/dL (80-110); HEMOLYSIS < 15 (0-50); Potassium 5.1 mmol/L (3.4-5.1); Sodium 129 mmol/L (137-145)
== END ==
PROVIDERS: Family Provider Family Medicine; PCP Family Medicine; Referring Provider Internal Medicine Cardiovascular Disease; Visit Provider Internal Medicine Cardiovascular Disease
DX: I77.9 Disorder of arteries and arterioles, unspecified (principal); I25.10 Atherosclerotic heart disease of native coronary artery without angina pectoris; E87.1 Hypo-osmolality and hyponatremia
CPT/HCPCS: 36415; 80048; 85025

== ENCOUNTER → 2024-06-09 16:27 | Outpatient (CLI) | payer OTHER, SELFPAY ==
[2024-01-07 03:42] VITALS: BMI 36.1
[2024-06-09 18:10] LABS: Sodium 127 mmol/L (137-145)
== END ==
LOC: LAB 16:27
PROVIDERS: Family Provider Family Medicine; PCP Family Medicine; Referring Provider Family Medicine; Visit Provider Family Medicine
DX: E87.1 Hypo-osmolality and hyponatremia (principal); I10 Essential (primary) hypertension
CPT/HCPCS: 36415; 84295

== ENCOUNTER 2024-07-18 10:49 | Inpatient (IN) | payer OTHER, SELFPAY ==
[2024-01-07 03:42] VITALS: BMI 36.1
[2024-07-18] VITALS (15 sets, daily range): BP systolic 91–178; BP diastolic 47–98; PULSE 75–103; RESP 18–28; TEMP 35.9–37.2; O2SAT 94–98; BMI 34.7
--- NOTE | 2024-07-18 11:09 | EKG_ITS ---
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
--- NOTE | 2024-07-18 11:09 | ED.SOB ---
HPI - SOB/Dyspnea General Chief Complaint: Shortness of Breath/Dyspnea Stated Complaint: Diff Breathing Time Seen by Provider: 07/18/24 10:55 History of Present Illness HPI Narrative: 84-year-old male with history of congestive heart failure, atrial flutter on Eliquis presents by EMS from home for shortness of breath. History is somewhat limited as patient was poor historian and he was requesting that we contact his fiancee for all healthcare related matters. EMS told nursing staff that the patient was saturating 77% on room air. He does not wear oxygen at baseline. Patient was placed on supplemental nasal cannula and transferred to the emergency department for evaluation. On my evaluation the patient states he feels much better on the oxygen. He denies chest pain, leg swelling, other complaints. He reports chronic generalized weakness and difficulty getting around the house. Related Data Home Medications Medication Instructions Recorded Confirmed [SHEILA & FLAVIA EX] 1 tab PO BID ##0 08/20/17 03/31/24 isosorbide mononitrate 30 mg 30 mg PO QAM ##0 08/20/17 03/31/24 tablet,extended release 24 hr magnesium oxide 400 mg (241.3 mg 400 mg PO QDAY ##0 08/20/17 03/31/24 magnesium) tablet nitroglycerin 0.4 mg sublingual 0.4 mg sublingual PRN PRN Chest 08/20/17 03/31/24 tablet (Nitrostat) Pain ##0 vit C 250 mg-vit E 90 mg-zinc 40 2 cap PO QDAY ##0 08/20/17 03/31/24 mg-copper 1 [id number] capsule (PreserVision AREDS-2) ascorbic acid (vitamin C) 1,000 mg 1 g PO Q6H 04/16/22 03/31/24 tablet vitamin B complex (B 1 tab PO DAILY 04/16/22 03/31/24 Complex-Vitamin B12 tablet) valsartan 80 mg tablet 80 mg PO BID 09/16/23 03/31/24 apixaban 5 mg tablet (Eliquis) 5 mg PO BID 03/31/24 03/31/24 furosemide 40 mg tablet 20 mg PO DAILY 03/31/24 03/31/24 Previous Rx's Medication Instructions Recorded azathioprine 50 mg tablet 50 mg PO DAILY #30 tabs 04/16/22 carvedilol 6.25 mg tablet 6.25 mg PO BID #180 tabs 01/13/24 scopolamine base 1 mg over 3 days 1 patch topical Q72H PRN motion 02/27/24 transdermal patch sickness #4 ea atorvastatin 20 mg tablet 20 mg PO BEDTIME #90 tabs 03/16/24 omeprazole 20 mg capsule,delayed See Rx Instructions .Route 03/16/24 release .COMPLEX #180 caps Allergies Allergy/AdvReac Type Severity Reaction Status Date / Time benzocaine [BENZOCAINE] Allergy Unknown Verified 03/31/24 16:18 procaine [From NOVOCAIN] Allergy Unknown Verified 02/27/24 15:39 Sulfa (Sulfonamide Allergy Unknown Verified 02/27/24 15:39 Antibiotics) Patient History Medical History Chronic hyponatremia Type 2 diabetes mellitus with hyperglycemia Right orbital fracture Excessive cerumen in both ear canals Actinic keratoses Wears glasses Psoriatic arthritis (~2017) Stroke (~2012) Mumps (~1946) Measles (~1946) Chicken pox (~1946) Hearing loss Glaucoma (~2015) Cataracts, bilateral (~2015) Gastric ulcer (~2012) Coronary artery disease (~2012) Carotid artery disorder (~2013) Surgical History Anesthesia History of eye surgery (~08/23/17) History of plastic surgery (~08/21/17) History of cataract removal with insertion of prosthetic lens Status post carotid surgery (~04/07/14) History of heart bypass surgery (~09/18/12) Status post total hip replacement, left (~1989) Family History Father History of heart disease History of heart bypass surgery Mother Diabetes mellitus Brother History of heart disease History of heart bypass surgery Social History household members: significant other Smoking Status: Never smoker Smoking Status: Never smoker Exam Initial Vital Signs Initial Vital Signs: Vital Signs Temperature 98.9 F 07/18/24 11:03 Pulse Rate 103 H 07/18/24 11:03 Respiratory Rate 26 H 07/18/24 11:03 Blood Pressure 152/80 H 07/18/24 11:03 Pulse Oximetry 94 07/18/24 11:03 Oxygen Delivery Method Room Air 07/18/24 11:03 Const: Awake, alert, debilitated, frail, appears chronically unwell Cardiac: Tachycardia, irregularly irregular RESP: Bilateral decreased breath sounds, rhonchi present GI: Soft, nontender, nondistended MSK: No deformity, no obvious edema, palpable DP pulses, no edema Skin: Warm, Dry, chronic venous stasis changes of bilateral lower extremity Neuro: AO x3, CN II-XII grossly intact, moves all extremities Course Orders Ordered: ED Orders 07/18/24 11:00 BNP [NT-proBNP (BNP-Adult 18+)] Stat CBC Auto Diff [Complete Blood Count AUTO DIFF] Stat CMP [Comprehensive Metabolic Panel] Stat Lactate (Lactic Acid) Stat MAG [Magnesium] Stat PT [Prothrombin Time INR] Stat Troponin & CK Cardiac Panel Stat 07/18/24 11:09 Chest [XR chest 1V] Stat EKG-12 Lead Stat 07/18/24 11:15 Respiratory Panel (Film Array) Stat 07/18/24 11:57 Education, smoking cessation ONGOING 07/18/24 12:00 Education, smoking cessation ONGOING Acetaminophen (Acetaminophen 325 Mg Tablet) 650 mg PO Q6H PRN PRN Reason: Fever/Mild Pain (1-3) Furosemide (Furosemide 20 Mg/2 Ml Vial) 40 mg IV BID JESSICA Naloxone HCl (Naloxone 0.4 Mg/Ml Vial) 0.2 mg IV Q2MIN PRN PRN Reason: Opiate Reversal Ondansetron HCl (Ondansetron 4 Mg/2 Ml Inj) 4 mg IV Q8HR PRN PRN Reason: Nausea And Vomiting Discontinued Medications Furosemide 60 mg/ Sodium (Chloride) 56 mls @ 112 mls/hr IV NOW ONE Stop: 07/18/24 11:43 Last Infusion: 07/18/24 12:42 Dose: Infused Documented By: Admin: 07/18/24 11:56 Dose: 112 mls/hr Documented By: ABHIJIT Vital Signs Vital signs: Vital Signs - 8 hr 07/18/24 11:03 07/18/24 11:21 07/18/24 11:22 Temperature 98.9 F Pulse Rate 103 H 101 H 102 H Respiratory Rate 26 H 28 H 25 H Blood Pressure 152/80 H 151/70 H Pulse Oximetry 94 97 97 Oxygen Delivery Method Room Air Nasal Cannula Nasal Cannula Oxygen Flow Rate 5 5 07/18/24 11:35 07/18/24 11:35 07/18/24 12:00 Temperature Pulse Rate 101 H Respiratory Rate 28 H Blood Pressure 170/93 H Pulse Oximetry 98 Oxygen Delivery Method Nasal Cannula Oxygen Flow Rate 5 07/18/24 12:00 Temperature Pulse Rate Respiratory Rate Blood Pressure 172/88 H Pulse Oximetry Oxygen Delivery Method Oxygen Flow Rate MDM - SOB/Dyspnea Lab Data 07/18/24 11:00 07/18/24 11:00 Labs: Lab Results 07/18/24 07/18/24 Range/Units 11:00 11:15 WBC 5.0 (4.5-11.0) X10^3/uL RBC 4.42 L (4.5-5.9) X10^6/uL Hgb 13.1 L (13.5-17.5) g/dL Hct 40.1 L (41-53) % MCV 90.5 (80-100) fL MCH 29.7 (26-34) PG MCHC 32.8 (30-36) % RDW 16.8 H (11.6-14.8) % Plt Count 190 (150-400) X10^3/uL Neut % (Auto) Not Reportable Lymph % (Auto) Not Reportable [place] % (Auto) Not Reportable Eos % (Auto) Not Reportable Baso % (Auto) Not Reportable Lymph # (Auto) Not Reportable [place] # (Auto) Not Reportable Baso # (Auto) Not Reportable Total Counted 100 Seg Neutrophils % 73.0 H (38-70) % Lymphocytes % (Manual) 20.0 L (25-45) % Monocytes % (Manual) 6.0 (2-11) % Myelocytes % 1.0 H (-0) % Neutrophils # (Manual) 3650 (6866-1077) /uL RBC Morphology See below Anisocytosis 1+ H PT 23.2 H (9.4-12.5) SECONDS INR 2.1 H (0.9-1.3) Sodium 122 L (137-145) mmol/L Potassium 5.0 (3.4-5.1) mmol/L Chloride 81 L (98-107) mmol/L Carbon Dioxide 38 H (22-32) mmol/L BUN 16 (9-20) mg/dL Creatinine 0.75 (0.66-1.25) mg/dL Estimated GFR > 60 (>60) mL/min BUN/Creatinine Ratio 21.3 (6-22) Glucose 109 (80-110) mg/dL Lactate 1.2 (0.7-2.1) mmol/L Calcium 8.3 L (8.4-10.2) mg/dL Magnesium 2.3 (1.6-2.3) mg/dL Total Bilirubin 1.0 (0.2-1.3) mg/dL AST 30 (17-59) IU/L ALT 24 (<50) IU/L Alkaline Phosphatase 123 (38-126) U/L Total Creatine Kinase 31 L (55-170) U/L Troponin I < 0.012 (0.01-0.034) ng/mL NT-Pro-B Natriuret Pep 2740 H (<450) pg/mL Total Protein 7.2 (6.3-8.2) g/dL Albumin 3.7 (3.5-5.0) g/dL Globulin 3.5 (1.7-4.1) g/dL Albumin/Globulin Ratio 1.1 (1.0-2.8) Chlamy pneumoniae PCR Not detected (Not Detect) Adenovirus (PCR) Not detected (Not Detect) B. pertussis DNA (PCR) Not detected (Not Detect) B.parapertussis DNA PCR Not detected (Not Detecte) Coronavirus OC43 (PCR) Not detected (Not Detect) Coronavirus HKU1 (PCR) Not detected (Not Detect) Coronavirus 229E (PCR) Not detected (Not Detect) SARS-CoV-2 (PCR) Not detected (Not Detecte) Coronavirus NL63 (PCR) Not detected (Not Detect) Human Metapneumovir PCR Not detected (Not Detect) Influenza Type A (PCR) Not detected (Not Detect) Influenza Type B (PCR) Not detected (Not Detect) M. pneumoniae (PCR) Not detected (Not Detect) Parainfluenza 1 (PCR) Not detected (Not Detect) Parainfluenza 2 (PCR) Not detected (Not Detect) Parainfluenza 3 (PCR) Not detected (Not Detect) Parainfluenza 4 (PCR) Not detected (Not Detect) RSV (PCR) Not detected (Not Detect) Entero/Rhino (PCR) Not detected (Not Detect) Point of Care Testing Glucose POC 139 Imaging Data Chest x-ray: Radiologist's Impression: PROCEDURE: XR CHEST 1V INDICATIONS: dyspnea, hypoxia TECHNIQUE: One view of the chest was acquired. COMPARISON: [facility], CR, XR CHEST 1V, 01/09/2024, 10:06. [facility], CR, XR CHEST 1V, 01/06/2024, 23:22. FINDINGS: Surgical changes and devices: Median sternotomy wires. Lungs and pleura: Large right pleural effusion with passive atelectasis of the right lower lobe. Small-moderate left pleural effusion with passive atelectasis of the left lower lobe and lingula. No pneumothorax. Mediastinum: Aortic arch calcifications. Mediastinal contours appear normal. Heart size is normal. Bones and chest wall: No suspicious bony lesions. Overlying soft tissues appear unremarkable. IMPRESSION: Large right and small-moderate left pleural effusions with associated passive atelectasis. Dictated by: Power Burdick M.D. on 07/18/2024 at 11:25 Approved by: Power Burdick M.D. on 07/18/2024 at 11:26 ECG Data Interpretation: Atrial flutter at 103 beats per minute. Questionable depressions V5 V6, no STEMI MDM Narrative Medical decision making narrative: Chronically unwell appearing patient with dyspnea, found to be hypoxic on room air. Patient poor historian, stating that his fiancee is the person who keeps all of his primary care information. Record review shows that patient does have congestive heart failure and has had several fluctuations in his Lasix dose. On nasal cannula in the exam room patient is much more comfortable, and able to speak in complete sentences. He does have significant restriction of air movement on pulmonary exam. Labs, x-ray imaging ordered. Laboratory work reviewed, WBC count 5.0, hemoglobin 13.1, platelet count 190, sodium 122, potassium 5.0, chloride 81, creatinine 0.75, troponin undetectable. BNP 2740. Significant pleural effusion on chest x-ray, right much larger than left. Patient has already been given 40 mg of IV Lasix. Allred placed for accurate I 0 monitoring. Respiratory panel negative for common pathogens. Still requiring supplemental nasal cannula. Patient to be admitted for further treatment of his condition. Discharge Plan Departure Patient Disposition: Admitted As Inpatient Clinical Impression: Acute hypoxemic respiratory failure, Cardiac volume overload Admit Date/Time: 07/18/24 12:01 Admit Provider: Gayatri Bowman
[2024-07-18 11:15] LABS: Hematocrit 40.1 % (41-53); Hemoglobin 13.1 g/dL (13.5-17.5); Mean Corpuscular HGB Conc 32.8 % (30-36); Mean Corpuscular Hemoglobin 29.7 PG (26-34); Mean Corpuscular Volume 90.5 fL (80-100); Platelet Count 190 X10^3/uL (150-400); Red Blood Cell Count 4.42 X10^6/uL (4.5-5.9); Red Cell Distribution Width 16.8 % (11.6-14.8)
[2024-07-18 11:16] LABS: INR 2.1 (0.9-1.3); Prothrombin Time 23.2 SECONDS (9.4-12.5)
[2024-07-18 11:21] LABS: Add Manual Diff / Slide Review YES; Alanine Aminotransferase 24 IU/L (<50); Albumin 3.7 g/dL (3.5-5.0); Albumin Globulin Ratio 1.1 (1.0-2.8); Alkaline Phosphatase 123 U/L (38-126); Aspartate Aminotransferase 30 IU/L (17-59); BUN Creatinine Ratio 21.3 (6-22); Blood Urea Nitrogen 16 mg/dL (9-20); Calcium 8.3 mg/dL (8.4-10.2); Carbon Dioxide 38 mmol/L (22-32); Chloride 81 mmol/L (98-107); Creatine Kinase 31 U/L (55-170); Estimated Glomerular Filt Rate > 60 mL/min (>60); Globulin 3.5 g/dL (1.7-4.1); Glucose 109 mg/dL (80-110); HEMOLYSIS < 15 (0-50); Lactate (Lactic Acid) 1.2 mmol/L (0.7-2.1); Magnesium 2.3 mg/dL (1.6-2.3); Sodium 122 mmol/L (137-145); Total Protein 7.2 g/dL (6.3-8.2)
[2024-07-18 11:33] LABS: NT-proBNP (BNP-Adult 18+) 2740 pg/mL (<450); Troponin I < 0.012 ng/mL (0.01-0.034)
[2024-07-18 11:38] LABS: Neutrophils Absolute Manual 3650 /uL (3000-5900); Total Cells Counted 100
[2024-07-18 11:39] LABS: Anisocytosis 1+
[2024-07-18] MEDS: FUROSEMIDE 60 MG in SODIUM CHLORIDE 0.9% 50 ML 112 MG IV (11:56)
[2024-07-18 12:06] LABS: Adenovirus Not Detected (Not Detect); B. parapertussis Not Detected (Not Detecte); Bordetella pertussis Not Detected (Not Detect); Chlamydophila pneumoniae Not Detected (Not Detect); Coronavirus 229E Not Detected (Not Detect); Coronavirus HKU1 Not Detected (Not Detect); Coronavirus NL 63 Not Detected (Not Detect); Coronavirus OC43 Not Detected (Not Detect); Human Metapneumovirus Not Detected (Not Detect); Human Rhinovirus/Enterovirus Not Detected (Not Detect); Influenza A Not Detected (Not Detect); Influenza B Not Detected (Not Detect); Mycoplasma pneumoniae Not Detected (Not Detect); Parainfluenza Virus 1 Not Detected (Not Detect); Parainfluenza Virus 2 Not Detected (Not Detect); Parainfluenza Virus 3 Not Detected (Not Detect); Parainfluenza Virus 4 Not Detected (Not Detect); Respiratory Syncytial Virus Not Detected (Not Detect); SARS- CoV-2 Not Detected (Not Detecte)
--- NOTE | 2024-07-18 12:10 | PC.NURSE ---
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 reports surgery was in the 70's. 14F paulino placed without issue. urine output dark and clear. sample sent to lab for UAC.
[2024-07-18 12:15] LABS: Appearance Urine UA SL CLOUDY; Bilirubin Urine UA NEGATIVE (NEGATIVE); Color Urine UA YELLOW; Glucose Urine UA NEGATIVE (Negative); Ketones Urine UA TRACE (NEGATIVE); Leukocyte Esterase Urine UA NEGATIVE (NEGATIVE); Nitrite Urine UA NEGATIVE (Negative); Occult Blood Urine UA NEGATIVE (Negative); Protein Urine UA 1+ (Negative); Specific Gravity Urine UA >=1.030 (1.000-1.035)
[2024-07-18 12:36] LABS: Bacteria Urine Occasional (0-1); Culture Indicated Urine Cult Not Indicated; Hyaline Casts Urine 0-1/LPF; RBC Urine 0-1/HPF (0-5/HPF); Squamous Epithelial Cell Urine 0-1 /HPF (0-5/HPF); Transitional Epi Cells Urine 0-1/HPF (0-5/HPF); Urine Volume 10mL (spun); WBC Urine 0-1/HPF (0-5/HPF)
--- NOTE | 2024-07-18 18:41 | PC.NURSE ---
Patient arrived to room 213 this afternoon. He is A&OX3, slightly forgetful of exact day. He is too weak to stand, spouse said from work load of breathing. He is able to tolerate meal well. BLE +2 edema, scaly and red, states from psoriasis.Allred catheter in place, oriented to room, call light in place. Telemetry placed. VSS, afebrile. Blanchable redness noted to buttocks.
--- NOTE | 2024-07-18 18:54 | PM.HP.1 ---
History of Present Illness History of Present Illness Chief complaint: Diff Breathing Narrative: 84 year-old gentleman with coronary artery disease status post [id number], hypertension, prior stroke, psoriatic arthritis, chronic left hip pain, elevated blood sugars, history of gastric ulcers, history of DVT in 2019, recent diagnosis of atrial flutter on apixaban, carotid artery disease with known near obstruction of the left carotid artery, and previous right carotid endarterectomy who presented to the emergency department via EMS complaining of shortness a breath. Upon EMS arrival, he had O2 sats of 77% in room air. He complained of generalized weakness and difficulty with mobility in his home. He was found to be mildly tachycardic, and required up to 5 L of oxygen. Sodium was 122, chloride 81, bicarb 38. Creatinine was normal at 0.75. BNP was 2740. Troponin was negative at less than 0.012. UA revealed 1+ protein. Respiratory viral panel was negative. Chest x-ray was done and revealed a large right and small to moderate left pleural effusion. EKG showed atrial flutter. He received 60 mg of IV Lasix. At the time of my evaluation, patient reported his symptoms were somewhat improved. He was a difficult historian. His significant other was also in the room and was also a somewhat challenging historian. Patient told me he has been short of breath ?for years. ? He told me more recently he became short of breath when he started taking apixaban. His significant other told me a circuitous story about how hard it was to get a supply of apixaban and how they are now getting it out of [facility]. Patient's significant other tells me he has been more short of breath for the last week or 2. She notes that his mobility has been quite impaired. He states he has been using some type of exercise equipment in the home and had noticed his legs were very tight and he felt as though they were going to explode. He then tells me that they were improving on the exercise equipment so it is a bit unclear whether that had been getting worse or better. His significant other reports that he is supposed to be on a 2000 cc fluid restriction as well as a 2 g sodium diet. They reported is difficult to be compliant with that. She reports he is supposed to weigh himself daily but he only weighs himself sporadically. He was last seen at Dr. Nicole's office on FridayJuly 16. He was given lab orders as well as an order for an echocardiogram to be done. Significant other reports that given his mobility difficulties, she is worried she will not be able to get them done unless they are done during this hospital stay. The labs that were requested included a CBC, CMP, urine protein, and BNP. [facility] Medical History Chronic hyponatremia Type 2 diabetes mellitus with hyperglycemia Right orbital fracture Excessive cerumen in both ear canals Actinic keratoses Wears glasses Psoriatic arthritis (~2017) Stroke (~2012) Mumps (~1946) Measles (~1946) Chicken pox (~1946) Hearing loss Glaucoma (~2015) Cataracts, bilateral (~2015) Gastric ulcer (~2012) Coronary artery disease (~2012) Carotid artery disorder (~2013) Surgical History Anesthesia History of eye surgery (~08/23/17) History of plastic surgery (~08/21/17) History of cataract removal with insertion of prosthetic lens Status post carotid surgery (~04/07/14) History of heart bypass surgery (~09/18/12) Status post total hip replacement, left (~1989) Family History Father History of heart disease History of heart bypass surgery Mother Diabetes mellitus Brother History of heart disease History of heart bypass surgery Social History household members: significant other Smoking Status: Never smoker alcohol intake: current Meds Home Medications and Allergies Home Medications Medication Instructions Recorded Confirmed Type [SOSA & CELERY EX] 1 tab PO BID ##0 08/20/17 03/31/24 History isosorbide mononitrate 30 mg 30 mg PO QAM ##0 08/20/17 03/31/24 History tablet,extended release 24 hr magnesium oxide 400 mg (241.3 mg 400 mg PO QDAY ##0 08/20/17 03/31/24 History magnesium) tablet nitroglycerin 0.4 mg sublingual 0.4 mg sublingual PRN PRN Chest 08/20/17 03/31/24 History tablet (Nitrostat) Pain ##0 vit C 250 mg-vit E 90 mg-zinc 40 2 cap PO QDAY ##0 08/20/17 03/31/24 History mg-copper 1 [id number] capsule (PreserVision AREDS-2) ascorbic acid (vitamin C) 1,000 mg 1 g PO DAILY 04/16/22 07/18/24 History tablet vitamin B complex (B 1 tab PO DAILY 04/16/22 03/31/24 History Complex-Vitamin B12 tablet) valsartan 80 mg tablet 80 mg PO BID 09/16/23 03/31/24 History carvedilol 6.25 mg tablet 6.25 mg PO BID #180 tabs 01/13/24 07/18/24 Rx scopolamine base 1 mg over 3 days 1 patch topical Q72H PRN motion 02/27/24 03/31/24 Rx transdermal patch sickness #4 ea atorvastatin 20 mg tablet 20 mg PO BEDTIME #90 tabs 03/16/24 07/18/24 Rx omeprazole 20 mg capsule,delayed See Rx Instructions .Route 03/16/24 03/31/24 Rx release .COMPLEX #180 caps apixaban 5 mg tablet (Eliquis) 5 mg PO BID 03/31/24 07/18/24 History furosemide 40 mg tablet 20 mg PO DAILY 03/31/24 07/18/24 History azathioprine 50 mg tablet 50 mg PO BEDTIME 07/18/24 07/18/24 History Allergies Allergy/AdvReac Type Severity Reaction Status Date / Time benzocaine [BENZOCAINE] Allergy Unknown Verified 03/31/24 16:18 procaine [From NOVOCAIN] Allergy Unknown Verified 02/27/24 15:39 Sulfa (Sulfonamide Allergy Unknown Verified 02/27/24 15:39 Antibiotics) Review of Systems Review of Systems Narrative: Significant other notes that she was putting an eczema lotion on his legs which then made the legs turn bright red. She stopped using it. All other systems were reviewed negative Exam Vital Signs (past 8 hours): - 07/18/24 11:03 07/18/24 11:21 07/18/24 11:22 Temperature 98.9 F Pulse Rate 103 H 101 H 102 H Respiratory Rate 26 H 28 H 25 H Blood Pressure 152/80 H 151/70 H Pulse Oximetry 94 97 97 Oxygen Delivery Method Room Air Nasal Cannula Nasal Cannula Oxygen Flow Rate 5 5 07/18/24 11:35 07/18/24 11:35 07/18/24 12:00 Temperature Pulse Rate 101 H Respiratory Rate 28 H Blood Pressure 170/93 H Pulse Oximetry 98 Oxygen Delivery Method Nasal Cannula Oxygen Flow Rate 5 07/18/24 12:00 07/18/24 12:24 07/18/24 12:30 Temperature Pulse Rate 99 H Respiratory Rate 18 Blood Pressure 172/88 H Pulse Oximetry 95 Oxygen Delivery Method Nasal Cannula Nasal Cannula Oxygen Flow Rate 5 07/18/24 12:30 07/18/24 13:00 07/18/24 13:00 Temperature Pulse Rate 99 H Respiratory Rate 22 Blood Pressure 162/89 H 152/88 H Pulse Oximetry 94 Oxygen Delivery Method Nasal Cannula Oxygen Flow Rate 5 07/18/24 13:30 07/18/24 13:30 07/18/24 14:00 Temperature Pulse Rate 95 H 97 H Respiratory Rate 19 18 Blood Pressure 178/93 H Pulse Oximetry 98 96 Oxygen Delivery Method Nasal Cannula Oxygen Flow Rate 5 07/18/24 14:01 07/18/24 14:01 07/18/24 16:40 Temperature 97.0 F L Pulse Rate 94 H 90 Respiratory Rate 20 20 Blood Pressure 150/83 H 149/98 H Pulse Oximetry 97 96 Oxygen Delivery Method Nasal Cannula Oxygen Flow Rate 5 5 Oxygen Delivery Method Nasal Cannula Oxygen Flow Rate 5 Narrative Exam Narrative: GEN: Elderly male, Alert and oriented x3, no acute distress HEENT: Normocephalic, face symmetric, pupils equal round reactive to light, extraocular movements intact, sclerae anicteric, conjunctiva clear, nares patent, oropharynx reveals an intact soft and hard palate with moist mucous membranes, dentition is fair NECK: Supple, no lymphadenopathy, thyroid without enlargement or nodularity, carotids no bruits can be auscultated CHEST: Respiratory excursions symmetric, coarse on the left, diminished breath sounds throughout on the right CV: Mildly tachy with Regular rate and rhythm, no murmurs, rubs, gallops, PMI can not be palpated ABD: Soft, obese, nontender, nondistended, bowel sounds present in all 4 quadrants, body habitus limits exam EXTR: Warm, well perfused, no clubbing/cyanosis, 2 to 3+ edema bilaterally, he has diffuse scaling noted to the bilateral lower extremities consistent with psoriasis SKIN: Warm and dry NEURO: Alert and oriented x3, grossly intact PSYCH: Mood and affect is within normal limits, judgment and insight are poor Objective Labs 07/18/24 11:00 07/18/24 11:00 Labs: Laboratory Results - last 24 hr 07/18/24 07/18/24 07/18/24 11:00 11:15 12:04 WBC 5.0 RBC 4.42 L Hgb 13.1 L Hct 40.1 L MCV 90.5 MCH 29.7 MCHC 32.8 RDW 16.8 H Plt Count 190 Neut % (Auto) Not Reportable Lymph % (Auto) Not Reportable [place] % (Auto) Not Reportable Eos % (Auto) Not Reportable Baso % (Auto) Not Reportable Lymph # (Auto) Not Reportable [place] # (Auto) Not Reportable Baso # (Auto) Not Reportable Total Counted 100 Seg Neutrophils % 73.0 H Lymphocytes % (Manual) 20.0 L Monocytes % (Manual) 6.0 Myelocytes % 1.0 H Neutrophils # (Manual) 3650 RBC Morphology See below Anisocytosis 1+ H PT 23.2 H INR 2.1 H Sodium 122 L Potassium 5.0 Chloride 81 L Carbon Dioxide 38 H BUN 16 Creatinine 0.75 Estimated GFR > 60 BUN/Creatinine Ratio 21.3 Glucose 109 Lactate 1.2 Calcium 8.3 L Magnesium 2.3 Total Bilirubin 1.0 AST 30 ALT 24 Alkaline Phosphatase 123 Total Creatine Kinase 31 L Troponin I < 0.012 NT-Pro-B Natriuret Pep 2740 H Total Protein 7.2 Albumin 3.7 Globulin 3.5 Albumin/Globulin Ratio 1.1 Urine Color Yellow Urine Appearance Sl cloudy Urine pH 6.0 Ur Specific [place] >=1.030 H Urine Protein 1+ H Urine Glucose (UA) Negative Urine Ketones Trace H Urine Occult Blood Negative Urine Nitrate Negative Urine Bilirubin Negative Urine Urobilinogen 2.0 H Ur Leukocyte Esterase Negative Urine RBC 0-1/hpf Urine WBC 0-1/hpf Ur Squamous Epith Cells 0-1 /hpf Ur Transition Epith Cell 0-1/hpf Urine Bacteria Occasional (0-1) Hyaline Casts 0-1/lpf Ur Culture Indicated? Cult not indicated Vol Urine Centrifuged 10ml (spun) Chlamy pneumoniae PCR Not detected Adenovirus (PCR) Not detected B. pertussis DNA (PCR) Not detected B.parapertussis DNA PCR Not detected Coronavirus OC43 (PCR) Not detected Coronavirus HKU1 (PCR) Not detected Coronavirus 229E (PCR) Not detected SARS-CoV-2 (PCR) Not detected Coronavirus NL63 (PCR) Not detected Human Metapneumovir PCR Not detected Influenza Type A (PCR) Not detected Influenza Type B (PCR) Not detected M. pneumoniae (PCR) Not detected Parainfluenza 1 (PCR) Not detected Parainfluenza 2 (PCR) Not detected Parainfluenza 3 (PCR) Not detected Parainfluenza 4 (PCR) Not detected RSV (PCR) Not detected Entero/Rhino (PCR) Not detected Assessment & Plan Assessment & Plan narrative: 1. Acute hypoxic respiratory failure Patient presented with acute hypoxic respiratory failure with room air O2 saturation of 77% at home. He is now saturating in the 90s on 5 liters/minute. At baseline he does not require any oxygen. Etiology is likely a combination of congestive heart failure and the large pleural effusion noted on the right. Plan to continue supplemental oxygen and diuresis. If he does not have dramatic improvement with a pleural effusions with diuresis, he may require a thoracentesis. 2. Congestive heart failure, acute on chronic Previous echocardiogram was done here in December of 2023 and revealed an EF of 40-45% with a hypokinetic septum. Right ventricle was normal in size and function. Mild mitral regurgitation was noted. No significant valvular aortic stenosis. There was trace tricuspid regurgitation. Moderate pulmonary hypertension was observed. Patient does have an order for an echocardiogram. Of note, in the March cardiology note from Dr. Nicole, reports the last echocardiogram was in 2018. Does not appear he was aware of the echocardiogram done in December. He has requested an echocardiogram to be done after the most recent visit last week with the patient. I am uncertain if he wants a complete echocardiogram due to his understanding that the last echo was in 2018, if he wants a limited echo based on knowing there is an echocardiogram done in December, or if he wants a complete echocardiogram due to the new AFib since his last echo in December. Will need to communicate with him or his office tomorrow when the office is open to further clarify whether this needs to be redone or not 3. Hyponatremia, acute on chronic Sodium on admission today is 122, consistent with hypervolemic hyponatremia. His previous baseline appears to be between 127 and 129 based on results in March and May of 2024. Anticipate this will improve with diuresis. Will recheck in the morning. 4. Bilateral pleural effusions, right greater than left As above, hopefully the effusions will improve with diuresis. I do have concern regarding the size of the right pleural effusion. Certainly this could be contributing significantly to his hypoxia. I have held his apixaban in light of the potential need for a thoracentesis. 5. Coronary artery disease Stable and asymptomatic. Troponin was negative on admission. Will continue his usual home medication. 6. Psoriatic arthritis Continue azathioprine. 7. Hypertension Continue his usual home medications. 8. Atrial flutter on chronic anticoagulation Holding anticoagulation as noted. Continue telemetry. 9. History of gastric ulcers Continue PPI. 10. Carotid artery disease He is following with vascular surgery. He has had a previous right carotid endarterectomy. He has no near occlusion of the left carotid artery. He does have history of a stroke. Code status Full Prophylaxis As noted, I am holding his apixaban in light of potential need for thoracentesis Disposition Admit to acute care. Time-Based Coding :: [TOTAL MINUTES] spent with patient and on the chart (including review of chart, obtaining history, exam, reviewing outside data, placing orders, documenting exam and treatment plan, and counseling patient) on [DATE]. Quality VTE Deep Vein Thrombosis/Pulmonary Embolism Present on Admission: No
[2024-07-18] MEDS: carvediloL 3.125 MG TABLET 6.25 MG PO (20:15)
[2024-07-18] MEDS: ATORVASTATIN 20 MG TABLET PO (20:15)
[2024-07-18] MEDS: FUROSEMIDE 20 MG/2 ML VIAL 40 MG IV (20:15)
--- NOTE | 2024-07-19 | DI.RAD.S_ITS ---
PROCEDURE: XR CHEST 1V INDICATIONS: POST-THORACENTESIS TECHNIQUE: One view of the chest was acquired. COMPARISON: [facility], CR, XR CHEST 1V, 07/18/2024, 11:07. [facility], CR, XR CHEST 1V, 01/09/2024, 10:06. [facility], CR, XR CHEST 1V, 01/06/2024, 23:22. FINDINGS: Surgical changes and devices: Median sternotomy wires. Lungs and pleura: Large right pleural effusion, although decreased in volume compared to 07/18/2024. Right parenchymal passive atelectasis secondary to pleural effusion. Small-moderate left pleural effusion with associated passive atelectasis. No pneumothorax. Mediastinum: Mediastinal contours appear normal. Cardiomegaly. Bones and chest wall: No suspicious bony lesions. Overlying soft tissues appear unremarkable. IMPRESSION: Status post right thoracentesis without significant pneumothorax. Dictated by: Power Burdick M.D. on 07/19/2024 at 13:43 Approved by: Power Burdick M.D. on 07/19/2024 at 13:44
--- NOTE | 2024-07-19 | DI.US.S_ITS ---
PROCEDURE: US THORACENTESIS THERAPUTIC INDICATIONS: PLEURAL EFFUSION TECHNIQUE: The indications, alternatives, benefits, risks, and complications of the procedure were explained to the patient. Written informed consent was obtained and placed in the chart. The chest was examined sonographically, and an appropriate site was chosen for thoracentesis. The skin was prepared and draped in the usual sterile fashion, and 1% lidocaine was infiltrated from the skin down through the pleural surface. A 19-gauge catheter-covered needle was then introduced into the pleural space, the catheter was advanced and the needle was withdrawn, and thereafter pleural fluid was aspirated. The catheter was then removed and a dressing was applied. COMPARISON: [facility], CR, XR CHEST 1V, 07/19/2024, 12:52. FINDINGS: Access site: Right hemithorax. Needle: One-Step centesis catheter with introducer needle. Fluid volume and description: 1.3 liters of clear, yellow fluid Fluid sent for diagnostic testing: No Medications: 1% lidocaine for local anaesthesia. Complications: No pneumothorax on postprocedural chest x-ray IMPRESSION: Successful ultrasound-guided right thoracentesis. Dictated by: Power Burdick M.D. on 07/19/2024 at 13:25 Approved by: Power Burdick M.D. on 07/19/2024 at 13:26
[2024-07-19 03:00] VITALS: BP 104/41; PULSE 74; RESP 18; TEMP 35.8; O2SAT 97
[2024-07-19 05:42] LABS: Add Manual Diff / Slide Review NO; Basophils Absolute Auto 100 /uL (0-100); Basophils Percent Auto 1.6 % (0-2); Eosinophils Absolute Auto 0 /uL (0-450); Eosinophils Percent Auto 0.2 % (2-4); Hematocrit 37.1 % (41-53); Hemoglobin 12.2 g/dL (13.5-17.5); Lymphocytes Absolute Auto 800 /uL (1100-4500); Lymphocytes Percent Auto 17.4 % (25-40); Mean Corpuscular HGB Conc 32.9 % (30-36); Mean Corpuscular Hemoglobin 29.6 PG (26-34); Monocytes Absolute Auto 700 /uL (0-900); Monocytes Percent Auto 15.4 % (3-14); Neutrophils Absolute Auto 3200 /uL (1500-7000); Neutrophils Percent Auto 65.4 % (50-75); Platelet Count 172 X10^3/uL (150-400); Red Blood Cell Count 4.13 X10^6/uL (4.5-5.9); Red Cell Distribution Width 16.9 % (11.6-14.8); White Blood Cell Count 4.8 X10^3/uL (4.5-11.0)
[2024-07-19 05:53] LABS: BUN Creatinine Ratio 20.5 (6-22); Blood Urea Nitrogen 16 mg/dL (9-20); Calcium 7.9 mg/dL (8.4-10.2); Chloride 80 mmol/L (98-107); Estimated Glomerular Filt Rate > 60 mL/min (>60); Glucose 85 mg/dL (80-110); HEMOLYSIS < 15 (0-50); Potassium 4.4 mmol/L (3.4-5.1); Sodium 122 mmol/L (137-145)
[2024-07-19 06:00] LABS: Carbon Dioxide 36 mmol/L (22-32)
[2024-07-19 07:00] VITALS: BP 113/63; PULSE 107; RESP 18; TEMP 36.3; O2SAT 94
--- NOTE | 2024-07-19 07:41 | PM.PN.1 ---
Subjective Subjective Interval history: Summary: 84 year-old gentleman with coronary artery disease status post [id number], hypertension, prior stroke, psoriatic arthritis, chronic left hip pain, elevated blood sugars, history of gastric ulcers, history of DVT in 2019, recent diagnosis of atrial flutter on apixaban, carotid artery disease with known near obstruction of the left carotid artery, and previous right carotid endarterectomy who presented to the emergency department via EMS complaining of shortness a breath. Upon EMS arrival, he had O2 sats of 77% in room air. He complained of generalized weakness and difficulty with mobility in his home. He was found to be mildly tachycardic, and required up to 5 L of oxygen. Sodium was 122, chloride 81, bicarb 38. Creatinine was normal at 0.75. BNP was 2740. Troponin was negative at less than 0.012. UA revealed 1+ protein. Respiratory viral panel was negative. Chest x-ray was done and revealed a large right and small to moderate left pleural effusion. EKG showed atrial flutter. He received 60 mg of IV Lasix. S: He feels a lot of little better after a right thoracentesis with 1500 mL of fluid removed. He denies recent fevers, or cough. He does have some leg edema. Exam Vital Signs (past 8 hours): - 07/19/24 03:00 Temperature 96.5 F L Pulse Rate 74 Respiratory Rate 18 Blood Pressure 104/41 L Pulse Oximetry 97 Oxygen Flow Rate 4 Fraction of Inspired Oxygen 36 SaO2/FiO2 Ratio 269 Oxygen Delivery Method Nasal Cannula Oxygen Flow Rate 4 Narrative Exam Narrative: NAD, alert and oriented. Fluent speech. Lungs are clear, normal rate and effort. Diminished breath sounds in the bases Heart is regular, no murmur gallop or rub. Abdomen is soft, non distended. Extremities are with 1+ edema. Objective ECG Impression: Atrial flutter with variable AV block Possible Anterior infarct , age undetermined ST & T wave abnormality, consider lateral ischemia Imaging Chest x-ray: Radiologist's impression: IMPRESSION: Successful ultrasound-guided right thoracentesis. Large right and small-moderate left pleural effusions with associated passive atelectasis. Labs 07/19/24 04:57 07/19/24 04:57 Labs: Laboratory Results - last 24 hr 07/18/24 07/18/24 07/18/24 11:00 11:15 12:04 WBC 5.0 RBC 4.42 L Hgb 13.1 L Hct 40.1 L MCV 90.5 MCH 29.7 MCHC 32.8 RDW 16.8 H Plt Count 190 Neut % (Auto) Not Reportable Lymph % (Auto) Not Reportable [place] % (Auto) Not Reportable Eos % (Auto) Not Reportable Baso % (Auto) Not Reportable Neut # (Auto) Lymph # (Auto) Not Reportable [place] # (Auto) Not Reportable Eos # (Auto) Baso # (Auto) Not Reportable Total Counted 100 Seg Neutrophils % 73.0 H Lymphocytes % (Manual) 20.0 L Monocytes % (Manual) 6.0 Myelocytes % 1.0 H Neutrophils # (Manual) 3650 RBC Morphology See below Anisocytosis 1+ H PT 23.2 H INR 2.1 H Sodium 122 L Potassium 5.0 Chloride 81 L Carbon Dioxide 38 H BUN 16 Creatinine 0.75 Estimated GFR > 60 BUN/Creatinine Ratio 21.3 Glucose 109 Lactate 1.2 Calcium 8.3 L Magnesium 2.3 Total Bilirubin 1.0 AST 30 ALT 24 Alkaline Phosphatase 123 Total Creatine Kinase 31 L Troponin I < 0.012 NT-Pro-B Natriuret Pep 2740 H Total Protein 7.2 Albumin 3.7 Globulin 3.5 Albumin/Globulin Ratio 1.1 Urine Color Yellow Urine Appearance Sl cloudy Urine pH 6.0 Ur Specific [place] >=1.030 H Urine Protein 1+ H Urine Glucose (UA) Negative Urine Ketones Trace H Urine Occult Blood Negative Urine Nitrate Negative Urine Bilirubin Negative Urine Urobilinogen 2.0 H Ur Leukocyte Esterase Negative Urine RBC 0-1/hpf Urine WBC 0-1/hpf Ur Squamous Epith Cells 0-1 /hpf Ur Transition Epith Cell 0-1/hpf Urine Bacteria Occasional (0-1) Hyaline Casts 0-1/lpf Ur Culture Indicated? Cult not indicated Vol Urine Centrifuged 10ml (spun) Chlamy pneumoniae PCR Not detected Adenovirus (PCR) Not detected B. pertussis DNA (PCR) Not detected B.parapertussis DNA PCR Not detected Coronavirus OC43 (PCR) Not detected Coronavirus HKU1 (PCR) Not detected Coronavirus 229E (PCR) Not detected SARS-CoV-2 (PCR) Not detected Coronavirus NL63 (PCR) Not detected Human Metapneumovir PCR Not detected Influenza Type A (PCR) Not detected Influenza Type B (PCR) Not detected M. pneumoniae (PCR) Not detected Parainfluenza 1 (PCR) Not detected Parainfluenza 2 (PCR) Not detected Parainfluenza 3 (PCR) Not detected Parainfluenza 4 (PCR) Not detected RSV (PCR) Not detected Entero/Rhino (PCR) Not detected 07/19/24 04:57 WBC 4.8 RBC 4.13 L Hgb 12.2 L Hct 37.1 L MCV 90.0 MCH 29.6 MCHC 32.9 RDW 16.9 H Plt Count 172 Neut % (Auto) 65.4 Lymph % (Auto) 17.4 L [place] % (Auto) 15.4 H Eos % (Auto) 0.2 L Baso % (Auto) 1.6 Neut # (Auto) 3200 Lymph # (Auto) 800 L [place] # (Auto) 700 Eos # (Auto) 0 Baso # (Auto) 100 Total Counted Seg Neutrophils % Lymphocytes % (Manual) Monocytes % (Manual) Myelocytes % Neutrophils # (Manual) RBC Morphology Anisocytosis PT INR Sodium 122 L Potassium 4.4 Chloride 80 L Carbon Dioxide 36 H BUN 16 Creatinine 0.78 Estimated GFR > 60 BUN/Creatinine Ratio 20.5 Glucose 85 Lactate Calcium 7.9 L Magnesium Total Bilirubin AST ALT Alkaline Phosphatase Total Creatine Kinase Troponin I NT-Pro-B Natriuret Pep Total Protein Albumin Globulin Albumin/Globulin Ratio Urine Color Urine Appearance Urine pH Ur Specific [place] Urine Protein Urine Glucose (UA) Urine Ketones Urine Occult Blood Urine Nitrate Urine Bilirubin Urine Urobilinogen Ur Leukocyte Esterase Urine RBC Urine WBC Ur Squamous Epith Cells Ur Transition Epith Cell Urine Bacteria Hyaline Casts Ur Culture Indicated? Vol Urine Centrifuged Chlamy pneumoniae PCR Adenovirus (PCR) B. pertussis DNA (PCR) B.parapertussis DNA PCR Coronavirus OC43 (PCR) Coronavirus HKU1 (PCR) Coronavirus 229E (PCR) SARS-CoV-2 (PCR) Coronavirus NL63 (PCR) Human Metapneumovir PCR Influenza Type A (PCR) Influenza Type B (PCR) M. pneumoniae (PCR) Parainfluenza 1 (PCR) Parainfluenza 2 (PCR) Parainfluenza 3 (PCR) Parainfluenza 4 (PCR) RSV (PCR) Entero/Rhino (PCR) [facility] Medical History Chronic hyponatremia Type 2 diabetes mellitus with hyperglycemia Right orbital fracture Excessive cerumen in both ear canals Actinic keratoses Wears glasses Psoriatic arthritis (~2017) Stroke (~2012) Mumps (~1946) Measles (~1946) Chicken pox (~1946) Hearing loss Glaucoma (~2015) Cataracts, bilateral (~2015) Gastric ulcer (~2012) Coronary artery disease (~2012) Carotid artery disorder (~2013) Surgical History Anesthesia History of eye surgery (~08/23/17) History of plastic surgery (~08/21/17) History of cataract removal with insertion of prosthetic lens Status post carotid surgery (~04/07/14) History of heart bypass surgery (~09/18/12) Status post total hip replacement, left (~1989) Family History Father History of heart disease History of heart bypass surgery Mother Diabetes mellitus Brother History of heart disease History of heart bypass surgery Social History household members: significant other Smoking Status: Never smoker alcohol intake: current Assessment & Plan Assessment & Plan narrative: 1. Acute hypoxic respiratory failure, active. Patient presented with acute hypoxic respiratory failure with room air O2 saturation of 77% at home. He is now saturating in the 90s on 5 liters/minute. At baseline he does not require any oxygen. Etiology is likely a combination of congestive heart failure and the large pleural effusion noted on the right. Plan to continue supplemental oxygen and diuresis. If he does not have dramatic improvement with a pleural effusions with diuresis, he may require a thoracentesis. 2. Acute on chronic systolic heart failure, active. Previous echocardiogram was done here in December of 2023 and revealed an EF of 40-45% with a hypokinetic septum. Right ventricle was normal in size and function. Mild mitral regurgitation was noted. No significant valvular aortic stenosis. There was trace tricuspid regurgitation. Moderate pulmonary hypertension was observed. Patient does have an order for an echocardiogram. Of note, in the March cardiology note from Dr. Nicole, reports the last echocardiogram was in 2017. Does not appear he was aware of the echocardiogram done in December. He has requested an echocardiogram to be done after the most recent visit last week with the patient. I am uncertain if he wants a complete echocardiogram due to his understanding that the last echo was in 2017, if he wants a limited echo based on knowing there is an echocardiogram done in December, or if he wants a complete echocardiogram due to the new AFib since his last echo in December. Will need to communicate with him or his office tomorrow when the office is open to further clarify whether this needs to be redone or not 3. Hyponatremia, acute on chronic, active. Sodium on admission today is 122, consistent with hypervolemic hyponatremia. His previous baseline appears to be between 127 and 129 based on results in March and May of 2024. Anticipate this will improve with diuresis. Will recheck in the morning. 4. Bilateral pleural effusions, right greater than left, improved. As above, hopefully the effusions will improve with diuresis. I do have concern regarding the size of the right pleural effusion. Certainly this could be contributing significantly to his hypoxia. I have held his apixaban in light of the potential need for a thoracentesis. 5. Coronary artery disease, active. Stable and asymptomatic. Troponin was negative on admission. Will continue his usual home medication. 6. Psoriatic arthritis, active. Continue azathioprine. 7. Hypertension, active. Continue his usual home medications. 8. Atrial flutter on chronic anticoagulation, active. Holding anticoagulation as noted. Continue telemetry. 9. History of gastric ulcers, active. Continue PPI. 10. Carotid artery disease, active. He is following with vascular surgery. He has had a previous right carotid endarterectomy. He has no near occlusion of the left carotid artery. He does have history of a stroke. PLAN: -thoracentesis today -continue diuresis -resume apixaban after thoracentesis Code status Full Prophylaxis As noted, I am holding his apixaban in light of potential need for thoracentesis Resume Apixiban 07/19. Time-Based Coding :: [TOTAL MINUTES] spent with patient and on the chart (including review of chart, obtaining history, exam, reviewing outside data, placing orders, documenting exam and treatment plan, and counseling patient) on [DATE]. Quality VTE Deep Vein Thrombosis/Pulmonary Embolism Present on Admission: No
[2024-07-19] MEDS: FUROSEMIDE 20 MG/2 ML VIAL 40 MG IV ×2 (09:45→21:21)
[2024-07-19] MEDS: carvediloL 3.125 MG TABLET 6.25 MG PO (09:45)
--- NOTE | 2024-07-19 14:23 | PC.NURSE ---
Addendum entered by Alba Aguirre R.N. 07/19/24 19:22: Patient has his thoracentisis and he had 1.5l of fluid out. He tolerated well and is resting comfortably. Patient is confused at times and did visit earlier. Original Note: Assess- Patient is alert and oriented x2. He denies pain and and has been repositioning every two hours. He complains of tailbone pain. Patient has also had multiple lose bowel movements, sent a sample down to r/o cdiff.
[2024-07-19 15:37] LABS: Clostridium Difficile Tox PCR Positive for C. diff (Negative)
[2024-07-19 16:00] VITALS: BP 98/57; PULSE 107; RESP 19; TEMP 35.8; O2SAT 93
--- NOTE | 2024-07-19 16:15 | CM.DANOTE ---
B DCP Assessment note pt is an 84yo M admitted for resp failure, CHF, and potential CDiff (results pending), and pleural effusion. lengthy PMH, see H&P/PNs for more. Per chart, preferred name is Simón Singh. PCP Deep Singh Payer [facility] and self pay INDUSTRIAL GARAGE SERVICER reviewed EMR. Per chart, last admission was December 2023, where pt transferred to higher level of care. Pt lives in [place] with partner, Soila. Soila ([phone]) acts as his caregiver, unclear at this time all of the ADLs pt needs assist with. Per chart, pt on 4ltrs O2 at this time, none at baseline. per RN, pt oriented x2. confused throughout the day. Per RN notes, pt weaker than baseline. Per RN, thoracentesis today. Per provider in morning rounds, hold PT/OT for today. 1500mL of fluid removed after thoracentesis. INDUSTRIAL GARAGE SERVICER attempted to meet with pt in room, sleeping heavily allowed to rest. INDUSTRIAL GARAGE SERVICER unable to connect with partner Soila today due to triaging needs. P: Medical POC continues. PT/OT pending. CM team will follow for coordination of DCP needs. FREEMAN [place] Discharge Planning/Care Management Advanced directive, confirm from FAMILY Start: 07/18/24 15:27 Freq: Q24H Status: Active Protocol: Document 07/18/24 21:06 BR (Rec: 07/18/24 21:06 BR [id number]) Advance Directive, confirm on record Time 21:06 Person contacted pt Copy received No CM Discharge Assessment Start: 07/19/24 16:11 Freq: Status: Active Protocol: Document 07/19/24 16:11 SL (Rec: 07/19/24 16:15 SL [id number]) Discharge Planning Assessment Assigned [employer] Dual Rate Supervisor FREEMAN Avilez DPOA/Assigned Designee Name Soila, partner Contact Information [phone] Advance Directives? Yes Advance Directives on File No History Provided By Medical Record Prior Living Arrangements House Household Members significant other Type of transporation used prior to Relies on Others admit Independent with ADL's No Is patient alert and oriented? No Transportation Arrangement pending medical POC Whiteboard Updated in Patient Room with No name and ext. # of [employer] Dual Rate Supervisor Review Status In Process Please Provide Date Initial DC 07/19/24 Assessment Was Performed Next Review Type Continued Stay Review
[2024-07-19] MEDS: APIXABAN 5 MG TABLET PO (16:45)
[2024-07-19] MEDS: VANCOMYCIN 125 MG CAPSULE PO ×2 (18:27→23:02)
[2024-07-19 20:00] VITALS: BP 103/50; PULSE 109; RESP 18; TEMP 36.1; O2SAT 97
[2024-07-19 20:55] VITALS: BP 98/46; PULSE 104
[2024-07-19] MEDS: ATORVASTATIN 20 MG TABLET PO (21:21)
[2024-07-19] MEDS: azaTHIOprine 50 MG TABLET PO (21:21)
--- NOTE | 2024-07-19 23:36 | PC.NURSE ---
pt o2 sats 87-89% on 4L nasal cannula. pt a&o to self and place. pt has a productive cough w/ thick, cream-colored sputum. when encouraged to spit out sputum, pt often will swallow it back down. RT called and notified.
[2024-07-19 23:44] VITALS: PULSE 100; RESP 32; O2SAT 90
[2024-07-20] VITALS (18 sets, daily range): BP systolic 99–123; BP diastolic 48–62; PULSE 101–113; RESP 19–32; TEMP 35.7–36.5; O2SAT 90–96
[2024-07-20 00:14] LABS: Allen Test for ABG Passed? Positive; Base Excess ABG 13.8 mmol/L (-2-3); Blood Gas Collection Site Right Radial; Delivery System High Flow Nas Cannul; HCO3 ABG 43 mmol/L (23-27); Oxygen Saturation ABG 92 % (95-100); PCO2 ABG 75.8 mmHg (35-45); PO2 ABG 69 mmHg (80-100); TCO2 ABG 42 mmol/L (23-27); pH ABG 7.36 (7.35-7.45)
--- NOTE | 2024-07-20 00:53 | RT ---
Per Provider order, pt placed on BiPAP at 0034 on settings: 15/8 60%, he did not tolerate bipap well. Noted pt discomfort and sustained Spo2 desaturation into high 70s. He was placed back on HHFNC 40L/65% FiO2 at 0041; he is much more comfortable. Noting fast improvement in saturation into 93%. Dr. Rsoado notified at 0047 regarding this update. RN and Nurse Coordinator aware.
--- NOTE | 2024-07-20 01:02 | RT ---
Late entry: on 07/19/24 at 2311 - Received call by nursing to assess pt. Pt requiring more Oxygen. Pt sat up in high fowlers position and encouraged to cough. He has a productive cough. Liter flow was increased to 6L on LFNC without improvement. Pt was placed on Oxymask and liter flow was titrated to 15L at 2327 for SpO2 89%, HR 107 BPM, RR [address] Rosado notified at 2336 regarding pt's increased O2 needs. Obtained order for HHFNC and ABG.
[2024-07-20 03:12] LABS: Allen Test for ABG Passed? Positive; Base Excess ABG 15.3 mmol/L (-2-3); Blood Gas Collection Site Right Radial; Delivery System High Flow Nas Cannul; HCO3 ABG 46 mmol/L (23-27); Oxygen Saturation ABG 98 % (95-100); PCO2 ABG 86.5 mmHg (35-45); PO2 ABG 115 mmHg (80-100); TCO2 ABG 45 mmol/L (23-27); pH ABG 7.33 (7.35-7.45)
[2024-07-20 05:32] LABS: Allen Test for ABG Passed? Positive; Base Excess ABG 11.2 mmol/L (-2-3); Blood Gas Collection Site Right Radial; Delivery System High Flow Nas Cannul; HCO3 ABG 40 mmol/L (23-27); Oxygen Saturation ABG 95 % (95-100); PCO2 ABG 73.7 mmHg (35-45); PO2 ABG 83 mmHg (80-100); TCO2 ABG 39 mmol/L (23-27); pH ABG 7.35 (7.35-7.45)
[2024-07-20] MEDS: VANCOMYCIN 125 MG CAPSULE PO ×4 (05:33→22:00)
[2024-07-20 05:41] LABS: Hematocrit 37.7 % (41-53); Hemoglobin 12.3 g/dL (13.5-17.5); Mean Corpuscular HGB Conc 32.6 % (30-36); Mean Corpuscular Hemoglobin 29.7 PG (26-34); Mean Corpuscular Volume 90.9 fL (80-100); Platelet Count 174 X10^3/uL (150-400); Red Blood Cell Count 4.15 X10^6/uL (4.5-5.9); Red Cell Distribution Width 16.7 % (11.6-14.8); White Blood Cell Count 7.9 X10^3/uL (4.5-11.0)
[2024-07-20 06:02] LABS: BUN Creatinine Ratio 25.3 (6-22); Blood Urea Nitrogen 19 mg/dL (9-20); Calcium 7.7 mg/dL (8.4-10.2); Chloride 79 mmol/L (98-107); Estimated Glomerular Filt Rate > 60 mL/min (>60); Glucose 83 mg/dL (80-110); HEMOLYSIS < 15 (0-50); Potassium 4.3 mmol/L (3.4-5.1); Sodium 123 mmol/L (137-145)
[2024-07-20 06:09] LABS: Carbon Dioxide 39 mmol/L (22-32)
[2024-07-20] MEDS: PANTOPRAZOLE DR 20 MG TABLET PO (07:07)
[2024-07-20] MEDS: FUROSEMIDE 20 MG/2 ML VIAL 40 MG IV ×2 (10:33→21:53)
[2024-07-20] MEDS: APIXABAN 5 MG TABLET PO ×2 (10:44→21:53)
[2024-07-20] MEDS: guaiFENesin ER 600 MG TAB PO ×2 (10:45→21:53)
[2024-07-20] MEDS: carvediloL 3.125 MG TABLET 6.25 MG PO ×2 (10:45→21:54)
--- NOTE | 2024-07-20 14:54 | CM.DPNOTE ---
DCP Note per chart review, pt on heated high flow now. Per RN, pt more confused today. Per provider, pt pos for CDIff. hold off on PT/OT for today. CAUL PULLER met with pt and partner Soila in room. pt confused and non participatory with DCP conversation. Per Soila, pt does not use O2 at baseline, uses a walker, and has a transport w/c. hx of SNF at [facility]. report it's been harder for her to care for him at home. believes she is his financial/healthcare POA and will look for the paperwork. CAUL PULLER provided information on LTC/ALIC[facility] with Medicaid. provided application information. Spouse reports agreeable to return to [facility] if recommended/if able. Provider entered room towards end of DCP conversation. CAUL PULLER spoke with Disha from [facility], kindly agreed to review. Would need Govind cheng if SNF ends up being the DCP. P: Medical POC continues. PT/OT pending. CM team will follow for coordination of DCP needs. will continue to coordinate/update [facility]. FREEMAN Wellington
[2024-07-20 16:48] LABS: Appearance Urine UA CLEAR; Bilirubin Urine UA NEGATIVE (NEGATIVE); Color Urine UA YELLOW; Glucose Urine UA NEGATIVE (Negative); Ketones Urine UA NEGATIVE (NEGATIVE); Leukocyte Esterase Urine UA NEGATIVE (NEGATIVE); Nitrite Urine UA NEGATIVE (Negative); Occult Blood Urine UA 3+ (Negative); Protein Urine UA NEGATIVE (Negative); Specific Gravity Urine UA >=1.030 (1.000-1.035); Urobilinogen Urine UA 0.2 E.U./dL (0.2); pH Urine UA 5.5 (4.5-8.0)
[2024-07-20 16:59] LABS: Bacteria Urine None Seen; Culture Indicated Urine Cult Not Indicated; RBC Urine >100/HPF (0-5/HPF); Squamous Epithelial Cell Urine 0-1 /HPF (0-5/HPF); Urine Volume 10mL (spun); WBC Urine None Seen (0-5/HPF)
[2024-07-20 17:28] LABS: Sodium Urine Random 49 mmol/L (30-90)
--- NOTE | 2024-07-20 19:37 | PM.PN.1 ---
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 Upon EMS arrival, he had O2 sats of 77% in room air. He complained of generalized weakness and difficulty with mobility in his home. He was found to be mildly tachycardic, and required up to 5 L of oxygen. Sodium was 122, chloride 81, bicarb 38. Creatinine was normal at 0.75. BNP was 2740. Troponin was negative at less than 0.012. UA revealed 1+ protein. Respiratory viral panel was negative. Chest x-ray was done and revealed a large right and small to moderate left pleural effusion. EKG showed atrial flutter. He received 60 mg of IV Lasix. S: He feels a lot of little better after a right thoracentesis with 1500 mL of fluid removed. He denies recent fevers, or cough. He does have some leg edema. He is still on high flow O2 today. Exam Vital Signs (past 8 hours): - 07/20/24 12:00 07/20/24 13:05 07/20/24 16:00 Temperature 97.6 F 97.7 F Pulse Rate 103 H 101 H 109 H Respiratory Rate 24 22 Blood Pressure 105/52 L Pulse Oximetry 93 92 Oxygen Flow Rate 40 07/20/24 17:24 Temperature Pulse Rate Respiratory Rate 24 Blood Pressure Pulse Oximetry 93 Oxygen Flow Rate Fraction of Inspired Oxygen 45 SaO2/FiO2 Ratio 206 Oxygen Delivery Method Heated High Flow Oxygen Flow Rate 40 Narrative Exam Narrative: NAD, alert and oriented. Fluent speech. Lungs are clear, normal rate and effort. Diminished breath sounds in the bases Heart is regular, no murmur gallop or rub. Abdomen is soft, non distended. Extremities are with 1+ edema. Objective Labs 07/20/24 05:07 07/20/24 05:07 Labs: Laboratory Results - last 24 hr 07/20/24 07/20/24 07/20/24 00:04 03:01 05:07 WBC 7.9 D RBC 4.15 L Hgb 12.3 L Hct 37.7 L MCV 90.9 MCH 29.7 MCHC 32.6 RDW 16.7 H Plt Count 174 ABG Sample Site Right radial Right radial ABG pH 7.36 7.33 L ABG pCO2 75.8 H* 86.5 H* ABG pO2 69 L 115 H ABG HCO3 43 H 46 H ABG Total CO2 42 H 45 H ABG O2 Saturation 92 L 98 ABG Base Excess 13.8 H 15.3 H Jim Test Positive Positive O2 Delivery Device High flow siena cannul High flow siena cannul FiO2 % 60.0 % 65.0 % Sodium 123 L Potassium 4.3 Chloride 79 L Carbon Dioxide 39 H BUN 19 Creatinine 0.75 Estimated GFR > 60 BUN/Creatinine Ratio 25.3 H Glucose 83 Calcium 7.7 L Urine Color Urine Appearance Urine pH Ur Specific [place] Urine Protein Urine Glucose (UA) Urine Ketones Urine Occult Blood Urine Nitrate Urine Bilirubin Urine Urobilinogen Ur Leukocyte Esterase Urine RBC Urine WBC Ur Squamous Epith Cells Urine Bacteria Ur Culture Indicated? Vol Urine Centrifuged Ur Random Sodium 07/20/24 07/20/24 05:22 16:10 WBC RBC Hgb Hct MCV MCH MCHC RDW Plt Count ABG Sample Site Right radial ABG pH 7.35 ABG pCO2 73.7 H* ABG pO2 83 ABG HCO3 40 H ABG Total CO2 39 H ABG O2 Saturation 95 ABG Base Excess 11.2 H Jim Test Positive O2 Delivery Device High flow siena cannul FiO2 % 50.0 % Sodium Potassium Chloride Carbon Dioxide BUN Creatinine Estimated GFR BUN/Creatinine Ratio Glucose Calcium Urine Color Yellow Urine Appearance Clear Urine pH 5.5 Ur Specific [place] >=1.030 H Urine Protein Negative Urine Glucose (UA) Negative Urine Ketones Negative Urine Occult Blood 3+ H Urine Nitrate Negative Urine Bilirubin Negative Urine Urobilinogen 0.2 Ur Leukocyte Esterase Negative Urine RBC >100/hpf H Urine WBC None seen Ur Squamous Epith Cells 0-1 /hpf Urine Bacteria None seen Ur Culture Indicated? Cult not indicated Vol Urine Centrifuged 10ml (spun) Ur Random Sodium 49 PFSH Medical History Chronic hyponatremia Type 2 diabetes mellitus with hyperglycemia Right orbital fracture Excessive cerumen in both ear canals Actinic keratoses Wears glasses Psoriatic arthritis (~2017) Stroke (~2012) Mumps (~1947) Measles (~194) Chicken pox (~194) Hearing loss Glaucoma (~2015) Cataracts, bilateral (~2016) Gastric ulcer (~2012) Coronary artery disease (~2012) Carotid artery disorder (~2013) Surgical History Anesthesia History of eye surgery (~08/23/17) History of plastic surgery (~08/21/17) History of cataract removal with insertion of prosthetic lens Status post carotid surgery (~04/07/14) History of heart bypass surgery (~09/18/12) Status post total hip replacement, left (~1989) Family History Father History of heart disease History of heart bypass surgery Mother Diabetes mellitus Brother History of heart disease History of heart bypass surgery Social History household members: significant other Smoking Status: Never smoker alcohol intake: current Assessment & Plan Assessment & Plan narrative: 1. Acute hypoxic and hypercapnic respiratory failure, active. Patient presented with acute hypoxic respiratory failure with room air O2 saturation of 77% at home. He is now on heated high flow O2. At baseline he does not require any oxygen. Etiology is likely a combination of congestive heart failure and the large pleural effusion noted on the right. Plan to continue supplemental oxygen and diuresis. - He is s/p thoracentesis with 1.5 L removed. 2. Acute on chronic systolic heart failure, active. Previous echocardiogram was done here in December of 2023 and revealed an EF of 40-45% with a hypokinetic septum. Right ventricle was normal in size and function. Mild mitral regurgitation was noted. No significant valvular aortic stenosis. There was trace tricuspid regurgitation. Moderate pulmonary hypertension was observed. Patient does have an order for an echocardiogram. Of note, in the March cardiology note from Dr. Nicole, reports the last echocardiogram was in 2018. Does not appear he was aware of the echocardiogram done in December. He has requested an echocardiogram to be done after the most recent visit last week with the patient. I am uncertain if he wants a complete echocardiogram due to his understanding that the last echo was in 2018, if he wants a limited echo based on knowing there is an echocardiogram done in December, or if he wants a complete echocardiogram due to the new AFib since his last echo in December. Will need to communicate with him or his office tomorrow when the office is open to further clarify whether this needs to be redone or not 3. Hyponatremia, acute on chronic, active. Sodium on admission today is 122, consistent with hypervolemic hyponatremia. His previous baseline appears to be between 127 and 129 based on results in March and May of 2024. Anticipate this will improve with diuresis. Na is slightly improved to 123 today. He has history of severe hyponatremia to 105. 4. Bilateral pleural effusions, right greater than left, improved. s/p 1.5 L thoracentesis - reassess with CXR in the next couple of days to see if any reaccumulation. 5. Coronary artery disease, active. Stable and asymptomatic. Troponin was negative on admission. Will continue his usual home medication. 6. Psoriatic arthritis, active. Continue azathioprine. 7. Hypertension, active. Continue his usual home medications. 8. Atrial flutter on chronic anticoagulation, active. Holding anticoagulation as noted. Continue telemetry. 9. History of gastric ulcers, active. Continue PPI. 10. Carotid artery disease, active. He is following with vascular surgery. He has had a previous right carotid endarterectomy. He has no near occlusion of the left carotid artery. He does have history of a stroke. PLAN: -continue diuresis -resume apixaban Code status Grinder Set Up Operator Gear Tool-Based Coding :: [TOTAL MINUTES] spent with patient and on the chart (including review of chart, obtaining history, exam, reviewing outside data, placing orders, documenting exam and treatment plan, and counseling patient) on [DATE]. Quality VTE Deep Vein Thrombosis/Pulmonary Embolism Present on Admission: No
[2024-07-20] MEDS: azaTHIOprine 50 MG TABLET PO (21:53)
[2024-07-20] MEDS: ATORVASTATIN 20 MG TABLET PO (21:54)
[2024-07-21] VITALS (15 sets, daily range): BP systolic 103–116; BP diastolic 46–61; PULSE 101–114; RESP 19–32; TEMP 36–36.5; O2SAT 92–96
[2024-07-21] MEDS: VANCOMYCIN 125 MG CAPSULE PO ×3 (05:10→16:32)
[2024-07-21 06:06] LABS: Hematocrit 37.1 % (41-53); Hemoglobin 12.2 g/dL (13.5-17.5); Mean Corpuscular HGB Conc 32.8 % (30-36); Mean Corpuscular Volume 91.3 fL (80-100); Platelet Count 161 X10^3/uL (150-400); Red Blood Cell Count 4.06 X10^6/uL (4.5-5.9); Red Cell Distribution Width 16.9 % (11.6-14.8); White Blood Cell Count 7.9 X10^3/uL (4.5-11.0)
[2024-07-21 06:21] LABS: BUN Creatinine Ratio 34.8 (6-22); Blood Urea Nitrogen 23 mg/dL (9-20); Calcium 7.8 mg/dL (8.4-10.2); Chloride 81 mmol/L (98-107); Estimated Glomerular Filt Rate > 60 mL/min (>60); Glucose 91 mg/dL (80-110); HEMOLYSIS < 15 (0-50); Potassium 4.2 mmol/L (3.4-5.1); Sodium 126 mmol/L (137-145)
[2024-07-21] MEDS: PANTOPRAZOLE DR 20 MG TABLET PO (06:56)
[2024-07-21 07:08] LABS: Carbon Dioxide 40 mmol/L (22-32)
[2024-07-21] MEDS: APIXABAN 5 MG TABLET PO ×2 (08:10→20:27)
[2024-07-21] MEDS: carvediloL 3.125 MG TABLET 6.25 MG PO ×2 (08:10→20:28)
[2024-07-21] MEDS: guaiFENesin ER 600 MG TAB PO ×2 (08:10→20:27)
[2024-07-21] MEDS: FUROSEMIDE 20 MG/2 ML VIAL 40 MG IV ×2 (08:10→20:28)
[2024-07-21] MEDS: SODIUM CHLORIDE 0.9% FLUSH 10 ML IV ×2 (09:45→20:43)
--- NOTE | 2024-07-21 15:57 | CM.DPNOTE ---
DCP note EDUCATIONAL TECHNOLOGIST reviewed EMR Per chart, pt remains on heated high flow and unable to work with therapies. Per provider, pt now hyponatremic but that's improving. Per RN, mentation is improving today compared to yesterday. Per Disha at , able to accept pending PT/OT patty and [facility] auth. EDUCATIONAL TECHNOLOGIST attempted to meet with pt mult times throughout the day, sleeping heavily. allowed to rest. EDUCATIONAL TECHNOLOGIST unable to meet with partner Soila today to further continue POA/Medicaid AL[place]/LTC discussions started by this EDUCATIONAL TECHNOLOGIST yesterday. EDUCATIONAL TECHNOLOGIST completed PASRR in anticipation of needing SNF placement at [facility]. P: Need PT/OT once able to participate. If SNF indicated and pt agreeable once confusion improves, need [facility] auth. can accept. Day/transport time pending. CM team will continue to follow closely FREEMAN Wellington
--- NOTE | 2024-07-21 16:20 | PM.PN.1 ---
Subjective Subjective Interval history: Summary: 84 year-old gentleman with coronary artery disease status post [id number], hypertension, prior stroke, psoriatic arthritis, chronic left hip pain, elevated blood sugars, history of gastric ulcers, history of DVT in 2019, recent diagnosis of atrial flutter on apixaban, carotid artery disease with known near obstruction of the left carotid artery, and previous right carotid endarterectomy who presented to the emergency department via EMS complaining of shortness a breath. Upon EMS arrival, he had O2 sats of 77% in room air. He complained of generalized weakness and difficulty with mobility in his home. He was found to be mildly tachycardic, and required up to 5 L of oxygen. Sodium was 122, chloride 81, bicarb 38. Creatinine was normal at 0.75. BNP was 2740. Troponin was negative at less than 0.012. UA revealed 1+ protein. Respiratory viral panel was negative. Chest x-ray was done and revealed a large right and small to moderate left pleural effusion. EKG showed atrial flutter. He received 60 mg of IV Lasix. S: He feels a lot of little better after a right thoracentesis with 1500 mL of fluid removed. He denies recent fevers, or cough. He does have some leg edema. He is still on high flow O2 today. He was net negative 1.1 L over the last 24 hours. Exam Vital Signs (past 8 hours): - 07/21/24 10:45 07/21/24 12:00 07/21/24 14:35 Temperature 97.4 F L Pulse Rate 101 H 110 H 105 H Respiratory Rate 24 22 24 Blood Pressure 116/53 L Pulse Oximetry 94 93 Fraction of Inspired Oxygen 45 SaO2/FiO2 Ratio 206 Oxygen Delivery Method Heated High Flow Oxygen Flow Rate 40 Narrative Exam Narrative: NAD, alert and oriented. Fluent speech. Lungs are clear, normal rate and effort. Diminished breath sounds in the bases Heart is regular, no murmur gallop or rub. Abdomen is soft, non distended. Extremities are with 1+ edema. Objective Labs 07/21/24 05:11 07/21/24 05:11 Labs: Laboratory Results - last 24 hr 07/20/24 07/21/24 16:10 05:11 WBC 7.9 RBC 4.06 L Hgb 12.2 L Hct 37.1 L MCV 91.3 MCH 30.0 MCHC 32.8 RDW 16.9 H Plt Count 161 Sodium 126 L Potassium 4.2 Chloride 81 L Carbon Dioxide 40 H* BUN 23 H Creatinine 0.66 Estimated GFR > 60 BUN/Creatinine Ratio 34.8 H Glucose 91 Calcium 7.8 L Urine Color Yellow Urine Appearance Clear Urine pH 5.5 Ur Specific [place] >=1.030 H Urine Protein Negative Urine Glucose (UA) Negative Urine Ketones Negative Urine Occult Blood 3+ H Urine Nitrate Negative Urine Bilirubin Negative Urine Urobilinogen 0.2 Ur Leukocyte Esterase Negative Urine RBC >100/hpf H Urine WBC None seen Ur Squamous Epith Cells 0-1 /hpf Urine Bacteria None seen Ur Culture Indicated? Cult not indicated Vol Urine Centrifuged 10ml (spun) Ur Random Sodium 49 PFSH Medical History Chronic hyponatremia Type 2 diabetes mellitus with hyperglycemia Right orbital fracture Excessive cerumen in both ear canals Actinic keratoses Wears glasses Psoriatic arthritis (~2017) Stroke (~2012) Mumps (~1946) Measles (~1946) Chicken pox (~1946) Hearing loss Glaucoma (~2015) Cataracts, bilateral (~2015) Gastric ulcer (~2012) Coronary artery disease (~2012) Carotid artery disorder (~2013) Surgical History Anesthesia History of eye surgery (~08/23/17) History of plastic surgery (~08/21/17) History of cataract removal with insertion of prosthetic lens Status post carotid surgery (~04/07/14) History of heart bypass surgery (~09/18/12) Status post total hip replacement, left (~1989) Family History Father History of heart disease History of heart bypass surgery Mother Diabetes mellitus Brother History of heart disease History of heart bypass surgery Social History household members: significant other Smoking Status: Never smoker alcohol intake: current Assessment & Plan Assessment & Plan narrative: 1. Acute hypoxic and hypercapnic respiratory failure, active. Patient presented with acute hypoxic respiratory failure with room air O2 saturation of 77% at home. He is now on heated high flow O2. At baseline he does not require any oxygen. Etiology is likely a combination of congestive heart failure and the large pleural effusion noted on the right. Plan to continue supplemental oxygen and diuresis. - He is s/p thoracentesis with 1.5 L removed. - 1.1 L net negative last 24 hours. 2. Acute on chronic systolic heart failure, active. Previous echocardiogram was done here in December of 2023 and revealed an EF of 40-45% with a hypokinetic septum. Right ventricle was normal in size and function. Mild mitral regurgitation was noted. No significant valvular aortic stenosis. There was trace tricuspid regurgitation. Moderate pulmonary hypertension was observed. - continue diuresis with 40 mg of furosemide BID 3. Hyponatremia, acute on chronic, active. Sodium on admission today is 122, consistent with hypervolemic hyponatremia. His previous baseline appears to be between 127 and 129 based on results in March and May of 2024. Anticipate this will improve with diuresis. Na is slightly improved to 126 today. He has history of severe hyponatremia to 105. 4. Bilateral pleural effusions, right greater than left, improved. s/p 1.5 L thoracentesis - reassess with CXR in the next couple of days to see if any reaccumulation. 5. Coronary artery disease, active. Stable and asymptomatic. Troponin was negative on admission. Will continue his usual home medication. 6. Psoriatic arthritis, active. Continue azathioprine. 7. Hypertension, active. Continue his usual home medications. 8. Atrial flutter on chronic anticoagulation, active. Holding anticoagulation as noted. Continue telemetry. 9. History of gastric ulcers, active. Continue PPI. 10. Carotid artery disease, active. He is following with vascular surgery. He has had a previous right carotid endarterectomy. He has no near occlusion of the left carotid artery. He does have history of a stroke. PLAN: -continue diuresis -resume apixaban Code status Territory Sales Representative-Based Coding :: [TOTAL MINUTES] spent with patient and on the chart (including review of chart, obtaining history, exam, reviewing outside data, placing orders, documenting exam and treatment plan, and counseling patient) on [DATE]. Quality VTE Deep Vein Thrombosis/Pulmonary Embolism Present on Admission: No
[2024-07-21] MEDS: ATORVASTATIN 20 MG TABLET PO (20:27)
[2024-07-21] MEDS: azaTHIOprine 50 MG TABLET PO (20:28)
[2024-07-22] VITALS (13 sets, daily range): BP systolic 110–128; BP diastolic 53–72; PULSE 102–109; RESP 19–24; TEMP 36.2–36.4; O2SAT 89–96
[2024-07-22] MEDS: VANCOMYCIN 125 MG CAPSULE PO ×5 (00:33→23:28)
[2024-07-22] MEDS: PANTOPRAZOLE DR 20 MG TABLET PO (05:45)
[2024-07-22] MEDS: carvediloL 3.125 MG TABLET 6.25 MG PO ×2 (08:22→20:51)
[2024-07-22] MEDS: SODIUM CHLORIDE 0.9% FLUSH 10 ML IV ×2 (08:23→20:52)
[2024-07-22] MEDS: FUROSEMIDE 20 MG/2 ML VIAL 40 MG IV ×2 (08:23→20:51)
[2024-07-22] MEDS: APIXABAN 5 MG TABLET PO ×2 (08:23→20:52)
[2024-07-22] MEDS: guaiFENesin ER 600 MG TAB PO ×2 (08:23→20:51)
[2024-07-22 08:26] LABS: Add Manual Diff / Slide Review NO; Basophils Absolute Auto 100 /uL (0-100); Basophils Percent Auto 1.1 % (0-2); Eosinophils Absolute Auto 0 /uL (0-450); Eosinophils Percent Auto 0.1 % (2-4); Hematocrit 37.7 % (41-53); Hemoglobin 12.3 g/dL (13.5-17.5); Lymphocytes Absolute Auto 800 /uL (1100-4500); Lymphocytes Percent Auto 10.8 % (25-40); Mean Corpuscular HGB Conc 32.7 % (30-36); Mean Corpuscular Volume 91.5 fL (80-100); Monocytes Absolute Auto 1100 /uL (0-900); Monocytes Percent Auto 15.6 % (3-14); Neutrophils Absolute Auto 5100 /uL (1500-7000); Neutrophils Percent Auto 72.4 % (50-75); Platelet Count 156 X10^3/uL (150-400); Red Blood Cell Count 4.12 X10^6/uL (4.5-5.9); Red Cell Distribution Width 16.7 % (11.6-14.8)
[2024-07-22 08:50] LABS: BUN Creatinine Ratio 43.4 (6-22); Blood Urea Nitrogen 23 mg/dL (9-20); Calcium 8.1 mg/dL (8.4-10.2); Chloride 79 mmol/L (98-107); Estimated Glomerular Filt Rate > 60 mL/min (>60); Glucose 83 mg/dL (80-110); HEMOLYSIS < 15 (0-50); Magnesium 1.8 mg/dL (1.6-2.3); Potassium 4.6 mmol/L (3.4-5.1); Sodium 127 mmol/L (137-145)
[2024-07-22 09:16] LABS: Carbon Dioxide 36 mmol/L (22-32)
--- NOTE | 2024-07-22 09:36 | DI.RAD.S_ITS ---
PROCEDURE: XR CHEST 1V INDICATIONS: worsened tachypnea, lethargy, reassess volume TECHNIQUE: One view of the chest was acquired. COMPARISON: [facility], CR, XR CHEST 1V, 07/19/2024, 12:52. FINDINGS: Surgical changes and devices: Median sternotomy wires are seen.. Lungs and pleura: There is near complete opacification of right hemithorax suggestive of large right pleural effusion and right lung atelectasis. Left lung is clear. No gross pneumothorax. Mediastinum: Mediastinal contours appear normal. Heart size is normal. Bones and chest wall: No suspicious bony lesions. Overlying soft tissues appear unremarkable. IMPRESSION: Interval significant increase in amount of right-sided pleural effusion with near complete opacification of right hemithorax. No obvious pneumothorax. Left lung is clear. Dictated by: Abelino Nolan M.D. on 07/22/2024 at 10:03 Approved by: Abelino Nolan M.D. on 07/22/2024 at 10:08
[2024-07-22 10:16] LABS: Allen Test for ABG Passed? Positive; Base Excess ABG 15.5 mmol/L (-2-3); Blood Gas Collection Site Left Radial; HCO3 ABG 45 mmol/L (23-27); Oxygen Saturation ABG 92 % (95-100); PCO2 ABG 81.9 mmHg (35-45); PO2 ABG 70 mmHg (80-100); TCO2 ABG 44 mmol/L (23-27); pH ABG 7.35 (7.35-7.45)
--- NOTE | 2024-07-22 11:54 | PM.PROC.1 ---
Procedures Date/Time Date of procedure: 07/22/24 Time of procedure: 11:40 General Procedure description: INDICATION: Right pleural effusion PROCEDURE SYSTEM PLANNING ENGINEER: Misbah Taylor DO [x] The procedure was emergent, the patient was unable to provide consent, and a designee was not immediately available. Previous thoracentesis was reviewed. PROCEDURE SUMMARY: A time out was performed and the chest x-ray was reviewed, the appropriate side was confirmed. Patient was placed in left lateral ducubitus positioning due to inability to sit upright. My hands were washed immediately prior to the procedure. I wore a sterile gown and sterile gloves throughout the procedure. The patient was prepped and draped in a sterile manner using chlorhexidine scrub after the appropriate level was percussed and confirmed by ultrasound. 1% lidocaine was used to anesthesize the skin, subcutaneous tissue, superior aspect of the rib periosteum and parietal pleura. The catheter needle was then inserted above the rib and return of serosanguinous fluid initially followed by serous fluid after was obtained. Then needle was then removed. Fluid was sent for culture and analysis to the lab. Approximately 850 cc of fluid was obtained prior to cessation of drainage from the catheter. Post procedure ultrasound still showed quite a bit of fluid remaining, but no obvious air. Repeat attempt for additional drainage was not performed at this time. Post procedure xray is ordered, pending at this time.
--- NOTE | 2024-07-22 11:55 | DI.RAD.S_ITS ---
PROCEDURE: XR CHEST 1V INDICATIONS: s/p thoracentesis TECHNIQUE: One view of the chest was acquired. COMPARISON: [facility], CR, XR CHEST 1V, 07/22/2024, 9:39. [facility], CR, XR CHEST 1V, 07/19/2024, 12:52. FINDINGS: Surgical changes and devices: No pneumothorax after right-sided thoracentesis. Upper sternotomy wires. Lungs and pleura: Lungs are clear on the left. No left-sided pleural effusions or pneumothorax bilaterally. After thoracentesis significant portions of the right lower lung are not well visualized likely due to a combination of atelectasis and residual pleural effusion. A lung mass in this area cannot be excluded. Mediastinum: Mediastinal contours appear normal. Heart size is not clearly visualized. Bones and chest wall: No suspicious bony lesions. Overlying soft tissues appear unremarkable. IMPRESSION: Very large right pleural effusion was accessed for thoracentesis. No pneumothorax after procedure, significant right lower lung abnormality and probable subpulmonic right pleural effusion remains. A lung mass or pleural mass in this area should be considered, and contrast-enhanced CT scanning may be warranted. That would also allow accurate assessment of heart size. Dictated by: Toan Weaver M.D. on 07/22/2024 at 12:29 Approved by: Toan Weaver M.D. on 07/22/2024 at 12:32
[2024-07-22 12:42] LABS: Body Fluid Red Blood Cells 15925 /uL; Body Fluid Tot Nucleated Cells 719 /uL
[2024-07-22 12:43] LABS: Body Fluid Appearance HAZY; Body Fluid Clotted? NO CLOTS PRESENT; Body Fluid Color BROWN
[2024-07-22 13:02] LABS: Lymphocytes Body Fluid 74 %; MESO/MACRO/MONO Body Fluid 4 %; Neutrophils Body Fluid 22 %
--- NOTE | 2024-07-22 15:45 | CM.DPC ---
DCP COnt: Per MD, pt with more breathing labor but on reduced oxygen and now getting thoracentesis bedside and pt less alert today and drowsy and SW was planning to meet bedside to confirm if pt has POA or needs POA but Sig Other not bedside and pt not quite cognitively appropriate for discussion today. MD and SW reviewed pt's Advanced Directives scanned into chart. Per MD, pt not quite appropriate for PT/OT eval yet today. Plan: SW to follow closely tomorrow to see if pt making progress for PT/OT eval and discharge discussion and to follow closely for Goals of Care in case pt does not improve. [facility] following for SNF pending progress. FREEMAN Evans
--- NOTE | 2024-07-22 17:01 | PC.NURSE ---
Addendum entered by Martha Kim R.N. 07/22/24 17:18: Notified MD Taylor again that patient appeared more confused this evening and increasingly lethargic - patient did not wake up when his girlfriend attempted to wake him, but did wake up when this RN loudly said his name. He woke up agitated and confused. MD Taylor stated that he would go speak with patient and his girlfriend this evening about plan/goals of care. Original Note: Day shift: Notified MD Taylor that patient's work of breathing and lethargy seemed increased, as compared to yesterday. Patient continues to be on 2-3L O2 via oxymask. ABGs done - elevated CO2, but patient is compensating. Chest xray done - showed increased fluid on the lungs. MD Taylor at bedside and removed 850mL pleural fluid via thoracentesis. Patient tolerated well and slept during most of the procedure. Patient woke up a bit after the procedure and was chatting with nursing staff. Then he became lethargic again and slept most of the afternoon. MD Taylor states patient is now DNR per POLST form and he has updated this in orders. Will continue to monitor.
--- NOTE | 2024-07-22 17:27 | PM.PN.1 ---
Subjective Subjective Interval history: Summary: 84 year-old gentleman with coronary artery disease status post [id number], hypertension, prior stroke, psoriatic arthritis, chronic left hip pain, elevated blood sugars, history of gastric ulcers, history of DVT in 2019, recent diagnosis of atrial flutter on apixaban, carotid artery disease with known near obstruction of the left carotid artery, and previous right carotid endarterectomy who presented to the emergency department via EMS complaining of shortness a breath. He has a recurrent R pleural effusion. Initally had 1500 mL drained on 07/19. Updates: today patient was more lethargic, PCO2 markedly elevated but still remarkably compensated with a pH of 7.35 indicating a more chronic hypercapnea. CXR showed R lung white out. He also has some epistaxis. Radiology was not available today, I had to perform an urgent thoracentesis. Was able to remove 850 mL of fluid today as documented previously. He was more alert following the procedure. Most fluid studies are still pending. Exam Vital Signs (past 8 hours): - 07/22/24 12:00 Temperature 97.6 F Pulse Rate 105 H Respiratory Rate 19 Blood Pressure 128/72 Pulse Oximetry 95 Oxygen Flow Rate 3 Fraction of Inspired Oxygen 32 SaO2/FiO2 Ratio 293 Oxygen Delivery Method Non -Rebreather Oxygen Flow Rate 3 Narrative Exam Narrative: NAD, alert and oriented. Fluent speech. Lungs are diminished on the R lung. Heart is regular, no murmur gallop or rub. Abdomen is soft, non distended. Extremities are with 1+ edema. Objective Labs 07/22/24 08:17 07/22/24 08:17 Labs: Laboratory Results - last 24 hr 07/19/24 07/22/24 07/22/24 12:49 08:17 10:13 WBC 7.0 RBC 4.12 L Hgb 12.3 L Hct 37.7 L MCV 91.5 MCH 30.0 MCHC 32.7 RDW 16.7 H Plt Count 156 Neut % (Auto) 72.4 Lymph % (Auto) 10.8 L [place] % (Auto) 15.6 H Eos % (Auto) 0.1 L Baso % (Auto) 1.1 Neut # (Auto) 5100 Lymph # (Auto) 800 L [place] # (Auto) 1100 H Eos # (Auto) 0 Baso # (Auto) 100 ABG Sample Site Left radial ABG pH 7.35 ABG pCO2 81.9 H* ABG pO2 70 L ABG HCO3 45 H ABG Total CO2 44 H ABG O2 Saturation 92 L ABG Base Excess 15.5 H Jim Test Positive O2 Delivery Device Oxymask Sodium 127 L Potassium 4.6 Chloride 79 L Carbon Dioxide 36 H BUN 23 H Creatinine 0.53 L Estimated GFR > 60 BUN/Creatinine Ratio 43.4 H Glucose 83 Calcium 8.1 L Magnesium 1.8 Fluid Color Fluid Appearance Fluid RBC Fld Tot Nucleated Cell Fluid Neutrophils % Fluid Lymphocytes % Fluid [place]/Macro/[place] % Body Fluid Clot C. diff Toxin A&B (EIA) Cancelled 07/22/24 11:30 WBC RBC Hgb Hct MCV MCH MCHC RDW Plt Count Neut % (Auto) Lymph % (Auto) [place] % (Auto) Eos % (Auto) Baso % (Auto) Neut # (Auto) Lymph # (Auto) [place] # (Auto) Eos # (Auto) Baso # (Auto) ABG Sample Site ABG pH ABG pCO2 ABG pO2 ABG HCO3 ABG Total CO2 ABG O2 Saturation ABG Base Excess Jim Test O2 Delivery Device Sodium Potassium Chloride Carbon Dioxide BUN Creatinine Estimated GFR BUN/Creatinine Ratio Glucose Calcium Magnesium Fluid Color Brown Fluid Appearance Hazy Fluid RBC 69007 Fld Tot Nucleated Cell 719 Fluid Neutrophils % 22 Fluid Lymphocytes % 74 Fluid Mes[place]/Macro/[place] % 4 Body Fluid Clot No clots present C. diff Toxin A&B (EIA) [facility] Medical History Chronic hyponatremia Type 2 diabetes mellitus with hyperglycemia Right orbital fracture Excessive cerumen in both ear canals Actinic keratoses Wears glasses Psoriatic arthritis (~2018) Stroke (~2012) Mumps (~194) Measles (~194) Chicken pox (~194) Hearing loss Glaucoma (~2016) Cataracts, bilateral (~2016) Gastric ulcer (~2013) Coronary artery disease (~2013) Carotid artery disorder (~2013) Surgical History Anesthesia History of eye surgery (~08/23/17) History of plastic surgery (~08/21/17) History of cataract removal with insertion of prosthetic lens Status post carotid surgery (~04/07/14) History of heart bypass surgery (~09/18/12) Status post total hip replacement, left (~1989) Family History Father History of heart disease History of heart bypass surgery Mother Diabetes mellitus Brother History of heart disease History of heart bypass surgery Social History household members: significant other Smoking Status: Never smoker alcohol intake: current Assessment & Plan Assessment & Plan narrative: 1. Acute hypoxic and acute on chronic hypercapnic respiratory failure, active. Patient presented with acute hypoxic respiratory failure with room air O2 saturation of 77% at home. He is now on O2 via nasal cannula. At baseline he does not require any oxygen. Etiology is likely a combination of congestive heart failure and the large pleural effusion noted on the right. Plan to continue supplemental oxygen and diuresis. - He is s/p thoracentesis with 1.5 L removed on 07/19, then reaccumulation and white out on 07/22 with 850 mL removed urgently at bedside. - Consider repeat thoracentesis tomorrow as there is still quite a bit of fluid after the procedure today. Consider consultation with pulmonology though not in house today. Consider transfer if no ability to do thoracentesis over the weekend - check CTA to rule out PE, he was off apixaban prior to thoracentesis previously, also can help evaluate for possible lung parenchyma mass or cause of effusion. - fluid studies pending from today. 719 nucleated cells with 22% neutrophils. 2. Acute on chronic systolic heart failure, active. Previous echocardiogram was done here in December of 2023 and revealed an EF of 40-45% with a hypokinetic septum. Right ventricle was normal in size and function. Mild mitral regurgitation was noted. No significant valvular aortic stenosis. There was trace tricuspid regurgitation. Moderate pulmonary hypertension was observed. - continue diuresis with 40 mg of furosemide BID, consider increasing but he has been net negative each day. 3. Hyponatremia, acute on chronic, active. Sodium on admission was 122, consistent with hypervolemic hyponatremia. His previous baseline appears to be between 127 and 129 based on results in March and May of 2024. Na is slightly improved to 127 with diuresis today. He has history of severe hyponatremia to 105. 4. Bilateral pleural effusions, right greater than left, improved. s/p 1.5 L thoracentesis on 07/19, the 850 mL removed urgently on 07/22 due to hypercapnea and mentation. - reassess with CXR in the next couple of days to see if any reaccumulation. 5. Coronary artery disease, active. Stable and asymptomatic. Troponin was negative on admission. Will continue his usual home medication. 6. Psoriatic arthritis, active. Continue azathioprine. 7. Hypertension, active. Continue his usual home medications. 8. Atrial flutter on chronic anticoagulation, active. Holding anticoagulation as noted. Continue telemetry. 9. History of gastric ulcers, active. Continue PPI. 10. Carotid artery disease, active. He is following with vascular surgery. He has had a previous right carotid endarterectomy. He has no near occlusion of the left carotid artery. He does have history of a stroke. Code status DNR / DNI (please see advanced directive) Surrogate: Time-Based Coding :: [TOTAL MINUTES] spent with patient and on the chart (including review of chart, obtaining history, exam, reviewing outside data, placing orders, documenting exam and treatment plan, and counseling patient) on [DATE]. Quality VTE Deep Vein Thrombosis/Pulmonary Embolism Present on Admission: No
--- NOTE | 2024-07-22 17:30 | DI.CT.S_ITS ---
PROCEDURE: CT ANGIO CHEST PE PROTOCOL INDICATIONS: r/o PE, further assessment of parenchyma recurrent effusions TECHNIQUE: After the administration of intravenous contrast, 2 mm thick sections acquired from the pulmonary apices to the posterior costophrenic angles. 3-dimensional maximum intensity projection (MIP) coronal and sagittal reformats were then acquired through the thorax. For radiation dose reduction, the following was used: automated exposure control, adjustment of mA and/or kV according to patient size. COMPARISON: [facility], CR, XR CHEST 1V, 07/22/2024, 9:39. [facility], CR, XR CHEST 1V, 07/22/2024, 11:56. FINDINGS: Image quality: There is suboptimal timing of contrast bolus limiting evaluation of the pulmonary arteries. The pulmonary arteries were adequately visualized to level of the proximal segmental pulmonary arteries. Pulmonary arteries: Pulmonary arteries are normal in size, and demonstrate no intraluminal filling defects to suggest central pulmonary embolism. Lower Neck: No enlarged lymph nodes. Thyroid: No thyroid nodules which require sonographic follow up, per consensus guidelines. Axillae: No enlarged lymph nodes. Chest Wall: Multiple median sternotomy wires. No substernal fluid collection seen. Bones: No acute vertebral body compression fractures. Multilevel spondylitic changes throughout the imaged spine. No suspicious osseous lesions. Lungs and Pleura: Mild atelectasis of the medial left lower lobe. Trace left pleural effusion. Left lung is otherwise clear. There is mild perihilar airway thickening of the left hemithorax. Mild-moderate perihilar airway thickening on the right. There is a moderate-large persistent right pleural effusion with small right pneumothorax. No midline shift of structures. Mild smooth septal thickening and diffuse ground-glass opacities. There is crowding of the bronchopulmonary structures of the right middle and lower lobes. Associated debris noted within the airways of the right lower lobe and right main bronchus. No definite mass lesion identified. No evidence to suggest cavitation. Heart: Heart size is mildly enlarged. Trace pericardial effusion likely physiologic. Multivessel atherosclerotic calcifications of the coronary arteries. Thoracic Vessels: No aortic aneurysm. Mediastinum and Hyun: Multiple prominent mediastinal and hilar lymph nodes which are more notable for number rather than size are favored to represent reactive adenopathy. Esophagus: No wall thickening. No hiatal hernia. Upper Abdomen: Visualized upper abdomen solid organs and bowel loops appear unremarkable. Suspected left renal cysts. These measure slightly higher than simple fluid attenuation. IMPRESSION: Study limited by suboptimal timing of contrast bolus. No acute pulmonary emboli identified to the level of the proximal segmental pulmonary arteries. No evidence for acute right-sided heart strain. Persistent moderate-large sized right pleural effusion with associated compressive atelectasis. Small right pneumothorax. No evidence for tension. Suspected mucus material within the right main stem bronchus extending into the right middle and lower lobe airways with associated moderate right perihilar airway thickening and atelectasis of the right middle and lower lobes. Findings may represent bronchitis either infectious or inflammatory in etiology and/or aspiration. Underlying pneumonia or mass lesion not definitively excluded. No evidence for cavitary lesion or central necrosis. Mild atelectasis of the medial left lower lobe with trace left pleural effusion. Mild cardiomegaly. Moderate atherosclerotic vascular calcifications. Other chronic findings as above. Findings were discussed with hospitalist, Dr. Denis Mcdonald, at 2115hrs PST. Dictated by: Presley Machado M.D. on 07/22/2024 at 20:50 Approved by: Presley Machado M.D. on 07/22/2024 at 21:16
[2024-07-22] MEDS: azaTHIOprine 50 MG TABLET PO (20:51)
[2024-07-22] MEDS: ATORVASTATIN 20 MG TABLET PO (20:51)
--- NOTE | 2024-07-22 21:37 | PM.EVENT ---
Event Note Event Note (Rapid Response, Code, or fall): Was notified that CT chest came back with small pneumothorax with sign of poosible aspiration. NPO. IVF ordered. Swallow evaluation ordered. Patient on Nasal Canal.
[2024-07-22] MEDS: SODIUM CHLORIDE 0.9% 1,000 ML 84 ML IV (21:55)
[2024-07-23] VITALS (9 sets, daily range): BP systolic 50–128; BP diastolic 29–62; PULSE 108–112; RESP 12–23; TEMP 36.3–37.1; O2SAT 83–96
[2024-07-23 05:39] LABS: Hematocrit 39.2 % (41-53); Hemoglobin 12.8 g/dL (13.5-17.5); Mean Corpuscular HGB Conc 32.7 % (30-36); Mean Corpuscular Volume 91.6 fL (80-100); Platelet Count 182 X10^3/uL (150-400); Red Blood Cell Count 4.27 X10^6/uL (4.5-5.9); Red Cell Distribution Width 16.5 % (11.6-14.8)
[2024-07-23] MEDS: MORPHINE 2 MG/ML INJ IV ×3 (05:56→15:52)
[2024-07-23 07:08] LABS: Labcorp Albumin, Body Fluid 1.5 g/dL (Not Estab.); Labcorp Glucose, Body Fluid 98 mg/dL (.); Labcorp LDH, Body Fluid 129 IU/L (.); Labcorp Total Prot, Body Fluid 2.5 g/dL (.)
[2024-07-23 08:43] LABS: BUN Creatinine Ratio 42.1 (6-22); Blood Urea Nitrogen 24 mg/dL (9-20); Calcium 8.5 mg/dL (8.4-10.2); Chloride 80 mmol/L (98-107); Estimated Glomerular Filt Rate > 60 mL/min (>60); Glucose 97 mg/dL (80-110); HEMOLYSIS < 15 (0-50); Magnesium 1.7 mg/dL (1.6-2.3); Potassium 4.4 mmol/L (3.4-5.1); Sodium 128 mmol/L (137-145)
[2024-07-23 09:06] LABS: Carbon Dioxide 39 mmol/L (22-32)
--- NOTE | 2024-07-23 11:02 | DIET.CONS ---
Dietary Consultation Note Admission Date: 07/18/2024 12:01 Assessment: 84 y M admitted with CHF, c. diff, and resp failure. Dietitian screened for LOS. EMR reviewed and patient discussed in team rounds. Pt made NPO last night and ST ordered. Before then had variable recorded PO intakes. Plan is to have goals of care discussion today. Ht: 182.88 cm Wt: 116.12 kg BMI: 34.7 UBW: 113.908 kg on 03/31/24, 113.4 kg on 01/09/24. has a recurrent R pleural effusion. Initially had 1500 mL drained on 07/19 and 850 mL fluid removed 07/22 Last BM: 07/20/24 (07/20/24 02:34) MNA: 11 Aldo Score: 9 Diet: 07/22/24 21:35 NPO Diet Diet Modifications: NPO Type: Strict Nutrition Percent Meal Consumed 0% 07/21/24 18:00 Labs: RBC 4.27 X10^6/uL (4.5-5.9) L 07/23/24 04:39 Hgb 12.8 g/dL (13.5-17.5) L 07/23/24 04:39 Hct 39.2 % (41-53) L 07/23/24 04:39 Creatinine 0.57 mg/dL (0.66-1.25) L 07/23/24 04:39 Lactate 1.2 mmol/L (0.7-2.1) 07/18/24 11:00 NT-Pro-B Natriuret Pep 2740 pg/mL (<450) H 07/18/24 11:00 Nutrition Diagnosis: Inadequate oral intake r/t inability to safely consume PO intake aeb NPO status, ST to eval. Interventions: -Will f/u based on plan of care and ST eval. EER: 0683-5263 kcals (MSJx1.25 vs 15 kcals per kg per BMI) 90-110 g protein (1-1.2 g/kg per age and CHF) Monitoring/Evaluations: GOC, ST recc Electronically Signed by: Rosalinda Maldonado 07/23/24 11:02 Clinical Dietitian [address] [address]
--- NOTE | 2024-07-23 12:04 | CM.DPNOTE ---
DCP Cont Reviewed chart. Patient discussed in multidisciplinary rounds. Patient has been made NPO; suspected aspiration. Swallow study is pending. Patient is clinically fragile, therapies on hold. Clarify goals of care if patient does not make significant improvement. [facility] can accept patient Friday or Friday pending patient's clinical status, PT/OT assessment and [facility] auth. CM team following clinical course closely. PASRR done in anticipation of SNF at [place]. MIGUEL
[2024-07-23] MEDS: SCOPOLAMINE 1 PATCH TOP (12:49)
[2024-07-23] MEDS: ATROPINE 1% OPHTH 2 DROPS SL ×2 (12:49→20:08)
[2024-07-23] MEDS: metroNIDAZOLE 500 MG/100 ML PIGGYBACK 100 MG IV (12:57)
--- NOTE | 2024-07-23 13:38 | ST.IPCSEOM ---
Visit Care Team Role Provider Type Deep iSngh DO Primary Care Provider Physician Specialty: Family Practice Address: [address] [place] [address], [id number] Email: Anuj Lovett MD Family Provider Non-Staff Specialty: Family Practice Address: [address] [place] [address] Dr. Mary Oshea, [place], [address] Email: Georgia Ruiz MD Emergency Provider Physician Referring Provider Specialty: Emergency Medicine Address: [address] [place] [address], [id number] Email: [email or web address] Gayatri Bowman MD Admit Provider Physician Attending Provider Specialty: [facility] Address: [address] [place] [address], [facility] Phone: Fax: Email: [email or web address] Current Diagnoses Heart failure, unspecified (07/18/24) Past Medical History (Last Reviewed 07/19/24 @ 07:48 by Jim Pardo MD) Actinic keratoses (Medical) Carotid artery disorder (Medical ~2013) Cataracts, bilateral (Medical ~2015) Chicken pox (Medical ~1946) Chronic hyponatremia (Medical) Coronary artery disease (Medical ~2012) Excessive cerumen in both ear canals (Medical) Gastric ulcer (Medical ~2012) Glaucoma (Medical ~2015) Hearing loss (Medical) Life time Measles (Medical ~1946) Mumps (Medical ~1946) Psoriatic arthritis (Medical ~2017) Right orbital fracture (Medical) Stroke (Medical ~2012) Type 2 diabetes mellitus with hyperglycemia (Medical) Wears glasses (Medical) Speech-Language Pathology Swallow Evaluation [employer]RICAL SU[employer]ONTRACTOR Clinical Swallow Evaluation Start: 07/23/24 10:57 Freq: Status: Active Protocol: Document 07/23/24 10:57 SS (Rec: 07/23/24 11:27 SS [id number]) Clinical Swallow Evaluation Session Time Visit Start Time 10:35 Visit Stop Time 10:55 Total Visit Minutes 20 Visit Information Visit Number [address] 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 Upon EMS arrival, he had O2 sats of 77% in room air . He complained of generalized weakness and difficulty with mobility in his home. He was found to be mildly tachycardic, and required up to 5 L of oxygen. Sodium was 122, chloride 81, bicarb 38. Creatinine was normal at 0.75. BNP was 2740. Troponin was negative at less than 0.012. UA revealed 1+ protein. Respiratory viral panel was negative. Chest x- ray was done and revealed a large right and small to moderate left pleural effusion . EKG showed atrial flutter. He received 60 mg of IV Lasix . At the time of my evaluation, patient reported his symptoms were somewhat improved. He was a difficult historian. His significant other was also in the room and was also a somewhat challenging historian . Patient told me he has been short of breath ?for years. ? He told me more recently he became short of breath when he started taking apixaban. His significant other told me a circuitous story about how hard it was to get a supply of apixaban and how they are now getting it out of [facility]. Patient's significant other tells me he has been more short of breath for the last week or 2. She notes that his mobility has been quite impaired. He states he has been using some type of exercise equipment in the home and had noticed his legs were very tight and he felt as though they were going to explode. He then tells me that they were improving on the exercise equipment so it is a bit unclear whether that had been getting worse or better. His significant other reports that he is supposed to be on a 2000 cc fluid restriction as well as a 2 g sodium diet. They reported is difficult to be compliant with that. She reports he is supposed to weigh himself daily but he only weighs himself sporadically. He was last seen at Dr. Nicole's office on FridayJuly 16. He was given lab orders as well as an order for an echocardiogram to be done. Significant other reports that given his mobility difficulties, she is worried she will not be able to get them done unless they are done during this hospital stay. The labs that were requested included a CBC, CMP, urine protein, and BNP. CT chest completed on 07/22 showing small pneumothorax with sign of possible aspiration and pt made NPO. Pt followed by respiratory therapy and currently on 2-3L O2 via Oxymask. 850mL pleural fluid removed yesterday via thoracentesis. Clinical swallow evaluation completed to assess current swallowing function. Subjective Observations Chart reviewed and RN consulted. RN reported pt has been having significant difficulty clearing secretions as of yesterday and cued cough is very minimal. He has been benefitting from frequent suctioning and has been NPO since yesterday evening. Additionally, he has been increasingly lethargic and confused and work of breathing seems increased. Upon ELECTRICAL SUBCONTRACTOR arrival to room, pt awake, though very minimally responsive. He tracked ELECTRICAL SUBCONTRACTOR across room, though consistently groaned. When asked if he was in pain, he said yes. He did not respond to any other questions and did not verbalize. He was able to open his mouth slightly, to allow for oral care, but did not follow other simple directions in order to complete OME. Reported by Patient/Caregiver Other Symptoms Difficulty swallowing liquids, Difficulty swallowing pills, Difficulty swallowing solids, History of aspiration or pneumonia Comment Chest x-ray morning of 07/22 significant for increase in amount of right-sided pleural effusion with near complete opacification of right hemithorax. No obvious pneumothorax. Left lung is clear. Chest CT later in day showed moderate-large sized right pleural effusion with associated compressive atelectasis, small right pneumothorax. Additionally, suspected mucus material within the right main stem bronchus extending into the right middle and lower lobe airways with associated moderate right perihilar airway thickening and atelectasis of the right middle and lower lobes. Findings may represent bronchitis either infectious or inflammatory in etiology and/or aspiration. Underlying pneumonia or mass lesion not definitively excluded. No evidence for cavitary lesion or central necrosis. Mild atelectasis of the medial left lower lobe with trace left pleural effusion. Current Diet NPO The IDDSI Framework Protocol: IDDSI.1 Objective Assessment Mental Status Confused,Lethargic, Unresponsive Oral Integrity WFL Dentition Missing teeth,Decay Respiratory Sufficiency Moderate impairment Comment Unable to complete OME d/t pt level of alertness. Thick secretions noted in oral cavity likely 2/2 oxymask. Pt agreeable to oral care with use of suctioning to clear oral cavity. Food and Liquid Trials Oral Impairment Severely impaired Pharyngeal Impairment Severely impaired Results No PO trials provided during evaluation given poor ability to clear secretions and no attempt to produce throat clearing or cough with max cueing. Attempted to initiate oral acceptance of ice chip by rubbing cold ice chip across pt's lips, with no response from pt. Oral phase significantly impaired as pt does not attempt any intake. Pharyngeal phase is suspected to be significantly impaired given pt inability to clear own secretions and very weak wet throat clearing throughout the session. Additionally, chest CT was significant for bronchitis and underlying pneumonia not definitively excluded given visualization of aspiration. Laryngeal aspiration is strongly suspected given results of chest CT and x-ray, inability to clear secretions, and consistent weak wet throat clearing. Respiratory needs appear to be increasing as O2 dropped to below 80 levels with brief removal of oxymask to complete oral care. Overall , pt's ability to participate in PO trials is severely limited by his significant SOB (O2 levels declined to 79% with removal of oxymask), cognitive status, and minimal to no oral acceptance of PO trials. The IDDSI Framework Protocol: IDDSI.1 Findings Swallowing Function Oropharyngeal phase dysphagia Severity of Swallow Impairment Severely impaired Contributing Factors to Swallow Reduced alertness or attention Impairment ,Difficulty following directions,Reduced oral strength/coordination/ sensation,Mastication inefficiency,Impaired oral- pharyngeal transport,Delayed swallow initiation,Reduced laryngeal excursion,Impaired airway protection,Excessive pharyngeal residue Prognosis Poor Based on Cognitive status,History of aspiration/aspiration pneumonia,Comorbidities Impact on Safety and Functioning Risk for aspiration,Risk for inadequate nutrition/hydration Recommendations Instrumental Assessment No Swallowing Treatment Yes Frequency Pending on overall medical status Recommended Solids NPO Other Recommendations 1. Pt is not appropriate for ice chip protocol at this time . Recommend continuation of NPO status with oral care as pt allows to increase comfort and minimize colonization of oral pathogens and frequent suctioning of secretions given inability to clear independently. 2. ELECTRICAL SUBCONTRACTOR to follow up and monitor swallowing function and readiness for MBSS to inform POC. Medication Recommendations Not Recommended by Mouth Discharge Recommendations senior living facility,Home with Hospice,Palliative care Referrals Recommended Referrals Dietary Education Patient/Caregiver Education Described results of evaluation Goals Short-term Goals 1. Patient will complete MBSS to further assess swallowing pathophysiology and next steps in POC. 2. Patient will tolerate IDDSI 4 (puree )with no clinical s/ sx of aspiration in 100% of opportunities in order to consume least restrictive diet texture. 3. Patient will tolerate thin liquids via tsp or controlled sip with no overt s/sx of aspiration in 100% of opportunities in order to consume least restrictive liquid consistency. Long-term Goals Patient will consume the safest and least restrictive diet for adequate nutrition and hydration with no overt signs/symptoms of aspiration following participation in [facility].
--- NOTE | 2024-07-23 15:22 | PC.NURSE ---
oxymask was decreased back down to 2l per dr akers for goal 88-92 %
[2024-07-23] MEDS: PIPERACILLIN/TAZO 4.5 GM in SODIUM CHLORIDE 0.9% 100 ML IV (15:52)
--- NOTE | 2024-07-23 19:17 | PM.PN.IH.1 ---
Subjective Subjective Date Patient Seen: 07/23/24 Time Patient Seen: 08:10 Interval history: Narrative: 84 year-old gentleman with coronary artery disease status post [id number], hypertension, prior stroke, psoriatic arthritis, chronic left hip pain, elevated blood sugars, history of gastric ulcers, history of DVT in 2019, recent diagnosis of atrial flutter on apixaban, carotid artery disease with known near obstruction of the left carotid artery, and previous right carotid endarterectomy who presented to the emergency department via EMS complaining of shortness a breath. Upon EMS arrival, he had O2 sats of 77% in room air. He complained of generalized weakness and difficulty with mobility in his home. He was found to be mildly tachycardic, and required up to 5 L of oxygen. Sodium was 122, chloride 81, bicarb 38. Creatinine was normal at 0.75. BNP was 2740. Troponin was negative at less than 0.012. UA revealed 1+ protein. Respiratory viral panel was negative. Chest x-ray was done and revealed a large right and small to moderate left pleural effusion. EKG showed atrial flutter. He received 60 mg of IV Lasix. At the time of my evaluation, patient reported his symptoms were somewhat improved. He was a difficult historian. His significant other was also in the room and was also a somewhat challenging historian. Patient told me he has been short of breath ?for years. ? He told me more recently he became short of breath when he started taking apixaban. His significant other told me a circuitous story about how hard it was to get a supply of apixaban and how they are now getting it out of [facility]. Patient's significant other tells me he has been more short of breath for the last week or 2. She notes that his mobility has been quite impaired. He states he has been using some type of exercise equipment in the home and had noticed his legs were very tight and he felt as though they were going to explode. He then tells me that they were improving on the exercise equipment so it is a bit unclear whether that had been getting worse or better. His significant other reports that he is supposed to be on a 2000 cc fluid restriction as well as a 2 g sodium diet. They reported is difficult to be compliant with that. She reports he is supposed to weigh himself daily but he only weighs himself sporadically. He was last seen at Dr. Nicole's office on FridayJuly 16. He was given lab orders as well as an order for an echocardiogram to be done. Significant other reports that given his mobility difficulties, she is worried she will not be able to get them done unless they are done during this hospital stay. The labs that were requested included a CBC, CMP, urine protein, and BNP. Patient has decreased mental status today, appears more confused. 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 They are very concerned about his decline. They do not wish to have him receive extraordinary measures in the event of medical futility, noting that he is stated that he would not wish to be on machines or have heroic measures performed. Exam Vital Signs (past 8 hours): - 07/23/24 11:27 07/23/24 11:45 07/23/24 16:00 Temperature 97.6 F 97.7 F Pulse Rate 109 H Respiratory Rate 20 18 17 Blood Pressure 119/58 L 110/58 L Pulse Oximetry 95 92 94 Oxygen Delivery Method Oximask Oxygen Flow Rate 2 9 2 Fraction of Inspired Oxygen 28 SaO2/FiO2 Ratio 342 Oxygen Delivery Method Oximask Oxygen Flow Rate 2 Narrative Exam Narrative: NAD, somnolent, arouses to voice but falls back asleep. Lungs are diminished on the R lung. Heart is regular, no murmur gallop or rub. Abdomen is soft, non distended. Extremities are with 1+ edema. Objective Labs 07/23/24 04:39 07/23/24 04:39 Labs: Laboratory Results - last 24 hr 07/22/24 07/23/24 11:30 04:39 WBC 8.0 RBC 4.27 L Hgb 12.8 L Hct 39.2 L MCV 91.6 MCH 30.0 MCHC 32.7 RDW 16.5 H Plt Count 182 Sodium 128 L Potassium 4.4 Chloride 80 L Carbon Dioxide 39 H BUN 24 H Creatinine 0.57 L Estimated GFR > 60 BUN/Creatinine Ratio 42.1 H Glucose 97 Calcium 8.5 Magnesium 1.7 Fluid Glucose 98 Fluid Total Protein 2.5 Fluid Albumin 1.[address]DH [address] [facility] History Chronic hyponatremia Type 2 diabetes mellitus with hyperglycemia Right orbital fracture Excessive cerumen in both ear canals Actinic keratoses Wears glasses Psoriatic arthritis (~2018) Stroke (~2012) Mumps (~194) Measles (~194) Chicken pox (~1946) Hearing loss Glaucoma (~2015) Cataracts, bilateral (~2016) Gastric ulcer (~2012) Coronary artery disease (~2012) Carotid artery disorder (~2013) Surgical History Anesthesia History of eye surgery (~08/23/17) History of plastic surgery (~08/21/17) History of cataract removal with insertion of prosthetic lens Status post carotid surgery (~04/07/14) History of heart bypass surgery (~09/18/12) Status post total hip replacement, left (~1989) Family History Father History of heart disease History of heart bypass surgery Mother Diabetes mellitus Brother History of heart disease History of heart bypass surgery Social History household members: significant other Smoking Status: Never smoker alcohol intake: current Assessment & Plan Assessment & Plan narrative: 1. Acute hypoxic and acute on chronic hypercapnic respiratory failure, active. -Patient presented with acute hypoxic respiratory failure with room air O2 saturation of 77% at home. He is now on O2 via nasal cannula. At baseline he does not require any oxygen. Etiology is likely a combination of congestive heart failure and the large pleural effusion noted on the right, combined with decreased respiratory drive. Plan to continue supplemental oxygen with goal SaO2 88-90% to avoid over oxygenation and reducing respiratory drive, continue diuresis. - He is s/p thoracentesis with 1.5 L removed on 07/19, then reaccumulation and white out on 07/22 with 850 mL removed urgently at bedside. - Consider repeat thoracentesis tomorrow as there is still quite a bit of fluid after the procedure today. - CTA to ruled out PE 07/22/2024. - fluid studies pending from today. 719 nucleated cells with 22% neutrophils. 2. Acute on chronic systolic heart failure, active. -Previous echocardiogram was done here in December of 2023 and revealed an EF of 40-45% with a hypokinetic septum. Right ventricle was normal in size and function. Mild mitral regurgitation was noted. No significant valvular aortic stenosis. There was trace tricuspid regurgitation. Moderate pulmonary hypertension was observed. - continue diuresis with 40 mg of furosemide BID, net -2700 mL noted yesterday. 3. Hyponatremia, acute on chronic, active. Sodium on admission was 122, consistent with hypervolemic hyponatremia. His previous baseline appears to be between 127 and 129 based on results in March and May of 2024. Na is slightly improved to 128 with diuresis today. He has history of severe hyponatremia to 105. 4. Bilateral pleural effusions, right greater than left, improved. s/p 1.5 L thoracentesis on 07/19, the 850 mL removed urgently on 07/22 due to hypercapnea and mentation. - reassess with CXR in the next couple of days to see if any reaccumulation. 5. Coronary artery disease, active. Stable and asymptomatic. Troponin was negative on admission. Will continue his usual home medication. 6. Psoriatic arthritis, active. Continue azathioprine. 7. Hypertension, active. Continue his usual home medications. 8. Atrial flutter on chronic anticoagulation, active. Holding anticoagulation as noted. Continue telemetry. 9. History of gastric ulcers, active. Continue PPI. 10. Carotid artery disease, active. He is following with vascular surgery. He has had a previous right carotid endarterectomy. He has no near occlusion of the left carotid artery. He does have history of a stroke. Code status DNR / DNI (please see advanced directive) Surrogate: Wendy (partner). Lengthy discussion with Kady and chase at bedside. They recognize that he may decline and may on this hospitalization, and wish him to be kept comfortable as a primary focus at this point. Quality VTE Deep Vein Thrombosis/Pulmonary Embolism Present on Admission: No PROFEE [employer]ia[employer] Nitrator Operator Document charge(s): No Charge Codes Subsequent inpatient/observation care: [id number]
--- NOTE | 2024-07-24 01:26 | PC.NURSE ---
At start of shift patient was unarousable, bp 80s/40s, HR 110s, RR 23 with moist lung sounds, 82% on 3L. made aware. at 2049 this RN went into room to hang iv antibx. Took BP and it was 50s/20s, long periods of apnea 83% on 8L with labored breathing using abdominal muscles, HR 80s. While in room respirations became more shallow and RR was 12. No pulse was found with no heart beat auscultations, respirations ceased. Telemetry was asystole at 2106. Dr. Mcdonald notified, and family notified. Post mortum care completed. [place] home removed body at 5.
--- NOTE | 2024-07-24 12:42 | P.DS_ITS ---
History of Present Illness History of Present Illness Date Patient Seen: 07/24/24 Date of Onset of Symptoms: 08/18/24 Chief complaint: Diff Breathing Narrative: 84 year-old gentleman with coronary artery disease status post [id number], hypertension, prior stroke, psoriatic arthritis, chronic left hip pain, elevated blood sugars, history of gastric ulcers, history of DVT in 2019, recent diagnosis of atrial flutter on apixaban, carotid artery disease with known near obstruction of the left carotid artery, and previous right carotid endarterectomy who presented to the emergency department via EMS complaining of shortness a breath. Upon EMS arrival, he had O2 sats of 77% in room air. He complained of generalized weakness and difficulty with mobility in his home. He was found to be mildly tachycardic, and required up to 5 L of oxygen. Sodium was 122, chloride 81, bicarb 38. Creatinine was normal at 0.75. BNP was 2740. Troponin was negative at less than 0.012. UA revealed 1+ protein. Respiratory viral panel was negative. Chest x-ray was done and revealed a large right and small to moderate left pleural effusion. EKG showed atrial flutter. He received 60 mg of IV Lasix. At the time of my evaluation, patient reported his symptoms were somewhat improved. He was a difficult historian. His significant other was also in the room and was also a somewhat challenging historian. Patient told me he has been short of breath ?for years. ? He told me more recently he became short of breath when he started taking apixaban. His significant other told me a circuitous story about how hard it was to get a supply of apixaban and how they are now getting it out of [facility]. Patient's significant other tells me he has been more short of breath for the last week or 2. She notes that his mobility has been quite impaired. He states he has been using some type of exercise equipment in the home and had noticed his legs were very tight and he felt as though they were going to explode. He then tells me that they were improving on the exercise equipment so it is a bit unclear whether that had been getting worse or better. His significant other reports that he is supposed to be on a 2000 cc fluid restriction as well as a 2 g sodium diet. They reported is difficult to be compliant with that. She reports he is supposed to weigh himself daily but he only weighs himself sporadically. He was last seen at Dr. Nicole's office on FridayJuly 16. He was given lab orders as well as an order for an echocardiogram to be done. Significant other reports that given his mobility difficulties, she is worried she will not be able to get them done unless they are done during this hospital stay. The labs that were requested included a CBC, CMP, urine protein, and BNP. Discharge Providers Provider Date of admission: 07/18/24 12:01 Discharge Date: 07/24/24 Primary care physician: Deep Singh, DO Consults: 07/23/24 05:09 Consult to Speech Therapy Evaluate & Treat Comment: Physician Instructions: Evaluate and treat Discharge provider: Fredis Saini MD Summary Hospital Course Discharge Diagnosis: summary: 1. Acute on chronic systolic heart failure. 2. Acute hypoxic and acute on chronic hypercapnic respiratory failure due to 1. 3. Hyponatremia, acute on chronic. 4. Bilateral pleural effusions, right greater than left. 5. Coronary artery disease, active. 6. Psoriatic arthritis. 7. Hypertension. 8. Atrial flutter on chronic anticoagulation. 9. History of gastric ulcers. 10. Carotid artery disease. Hospital Course: The patient was admitted with acute hypoxic respiratory failure with an oxygen saturation of 77% on room air, improved with nasal cannula oxygen, but with significant hypercarbic respiratory failure. He underwent 1.5 L thoracentesis on admission, with reaccumulation and whiteout of the right lung on 07/22 with an additional [address] angiography ruled out pulmonary embolism. Fluid analysis was unremarkable. He was treated for congestive heart failure with a program of diuretics, however, despite therapy, he continued to have significant ongoing hypercarbic and hypoxic respiratory failure. Sodium was 122 on admission and improved to 128 with diuresis. His cardiac status remained otherwise stable with no evidence of myocardial infarction. He was continued on his usual medications otherwise, with anticoagulation withheld given thoracentesis procedures. Oxygen was minimize to maximize hypoxemic respiratory drive. His lifelong partner and hauai-zl-fjnxnong Soila and daughter Mery were updated in family conference. They recognize that he was declining and may potentially during hospitalization, and wished him to be kept comfortable as a primary focus, and not undergo intubation, mechanical ventilation, or cardiac resuscitation. On the evening of 07/23/2024 the patient developed increased labored breathing, which became progressively shallow with decreasing respiratory rate. He was found to be pulseless without respirations, and asystolic on telemetry at 2107. Family was notified. Nursing notes: At start of shift patient was unarousable, bp 80s/40s, HR 110s, RR 23 with moist lung sounds, 82% on 3L. made aware. at 2049 this RN went into room to hang iv antibx. Took BP and it was 50s/20s, long periods of apnea 83% on 8L with labored breathing using abdominal muscles, HR 80s. While in room respirations became more shallow and RR was 12. No pulse was found with no heart beat auscultations, respirations ceased. Telemetry was asystole at 2107. Dr. Mcdonald notified, and family notified. Post mortum care completed. [place] home removed body at 2345. Addendum: The patient is partner Emily was called on 07/24/2024 and care reviewed in detail. She expressed appreciation for care rendered. Exam Vital Signs (past 8 hours): Fraction of Inspired Oxygen 28 SaO2/FiO2 Ratio 342 Oxygen Delivery Method Oximask Oxygen Flow Rate 3 Objective Imaging *: Radiologist's impression: 1. Chest xray 07/18/2024: Large right and small-moderate left pleural effusions with associated passive atelectasis. 2. Thoracentesis 07/19/2024: FINDINGS: Access site: Right hemithorax. Needle: One-Step centesis catheter with introducer needle. Fluid volume and description: 1.3 liters of clear, yellow fluid Fluid sent for diagnostic testing: No Medications: 1% lidocaine for local anaesthesia. Complications: No pneumothorax on postprocedural chest x-ray IMPRESSION: Successful ultrasound-guided right thoracentesis. 3. Chest xray 07/19/2024: Status post right thoracentesis without significant pneumothorax. 4. Chest xray 07/22/2024: Interval significant increase in amount of right-sided pleural effusion with near complete opacification of right hemithorax. No obvious pneumothorax. Left lung is clear. 5. Thoracentesis 07/22/2024: A time out was performed and the chest x-ray was reviewed, the appropriate side was confirmed. Patient was placed in left lateral ducubitus positioning due to inability to sit upright. My hands were washed immediately prior to the procedure. I wore a sterile gown and sterile gloves throughout the procedure. The patient was prepped and draped in a sterile manner using chlorhexidine scrub after the appropriate level was percussed and confirmed by ultrasound. 1% lidocaine was used to anesthesize the skin, subcutaneous tissue, superior aspect of the rib periosteum and parietal pleura. The catheter needle was then inserted above the rib and return of serosanguinous fluid initially followed by serous fluid after was obtained. Then needle was then removed. Fluid was sent for culture and analysis to the lab. Approximately 850 cc of fluid was obtained prior to cessation of drainage from the catheter. Post procedure ultrasound still showed quite a bit of fluid remaining, but no obvious air. Repeat attempt for additional drainage was not performed at this time. 6. Chest xray 07/22/2024: Very large right pleural effusion was accessed for thoracentesis. No pneumothorax after procedure, significant right lower lung abnormality and probable subpulmonic right pleural effusion remains. A lung mass or pleural mass in this area should be considered, and contrast-enhanced CT scanning may be warranted. That would also allow accurate assessment of heart size. 7. Chest CTA 07/22/2024: Study limited by suboptimal timing of contrast bolus. No acute pulmonary emboli identified to the level of the proximal segmental pulmonary arteries. No evidence for acute right-sided heart strain. Persistent moderate-large sized right pleural effusion with associated compressive atelectasis. Small right pneumothorax. No evidence for tension. Suspected mucus material within the right main stem bronchus extending into the right middle and lower lobe airways with associated moderate right perihilar airway thickening and atelectasis of the right middle and lower lobes. Findings may represent bronchitis either infectious or inflammatory in etiology and/or aspiration. Underlying pneumonia or mass lesion not definitively excluded. No evidence for cavitary lesion or central necrosis. Mild atelectasis of the medial left lower lobe with trace left pleural effusion. Mild cardiomegaly. Moderate atherosclerotic vascular calcifications. Other chronic findings as above. Labs 07/23/24 04:39 07/23/24 04:39 [facility] Medical History Actinic keratoses Carotid artery disorder (~2013) Cataracts, bilateral (~2015) Chicken pox (~1947) Chronic hyponatremia Coronary artery disease (~2012) Excessive cerumen in both ear canals Gastric ulcer (~2012) Glaucoma (~2015) Hearing loss Measles (~1946) Mumps (~1946) Psoriatic arthritis (~2017) Right orbital fracture Stroke (~2012) Type 2 diabetes mellitus with hyperglycemia Wears glasses Surgical History Anesthesia History of cataract removal with insertion of prosthetic lens History of eye surgery (~08/23/17) History of heart bypass surgery (~09/18/12) History of plastic surgery (~08/21/17) Status post carotid surgery (~04/07/14) Status post total hip replacement, left (~1989) Family History Father History of heart disease History of heart bypass surgery Mother Diabetes mellitus Brother History of heart disease History of heart bypass surgery Social History household members: significant other Smoking Status: Never smoker alcohol intake: current Discharge Plan Discharge Plan Patient Disposition: Other facility: [facility] home Discharge Data Primary Care Provider: Deep Singh VTE Deep Vein Thrombosis/Pulmonary Embolism Present on Admission: No [facility] PROFEE Charge Codes Discharge inpatient/observation: [id number] ([id number])
== END 2024-07-23 23:45 | disposition expired | DRG 291 ==
LOC: ED 11:59 → AC 12:02
PROVIDERS: Hospitalist; Internal Medicine; Admitting Provider Family Medicine; Emergency Provider Emergency Medicine; Family Provider Family Medicine; PCP Family Medicine; Referring Provider Emergency Medicine; Visit Provider Family Medicine
DX: I11.0 Hypertensive heart disease with heart failure (principal); I50.23 Acute on chronic systolic (congestive) heart failure; J96.01 Acute respiratory failure with hypoxia; J96.02 Acute respiratory failure with hypercapnia; E87.1 Hypo-osmolality and hyponatremia; I48.92 Unspecified atrial flutter; A04.72 Enterocolitis due to Clostridium difficile, not specified as recurrent; J93.9 Pneumothorax, unspecified; I25.10 Atherosclerotic heart disease of native coronary artery without angina pectoris; L40.50 Arthropathic psoriasis, unspecified; G89.29 Other chronic pain; M25.552 Pain in left hip; I65.22 Occlusion and stenosis of left carotid artery; I34.0 Nonrheumatic mitral (valve) insufficiency; I27.20 Pulmonary hypertension, unspecified; E11.9 Type 2 diabetes mellitus without complications; R41.82 Altered mental status, unspecified; Z87.11 Personal history of peptic ulcer disease; Z86.73 Personal history of transient ischemic attack (TIA), and cerebral infarction without residual deficits; Z95.1 Presence of aortocoronary bypass graft; Z66 Do not resuscitate; Z86.718 Personal history of other venous thrombosis and embolism; Z79.01 Long term (current) use of anticoagulants; Z98.890 Other specified postprocedural states
CPT/HCPCS: 32555; 36415; 36600; 71045; 71275; 80048; 80053; 81001; 82040; 82550; 82805; 82945; 83605; 83615; 83735; 83880; 84157; 84300; 84484; 85007; 85025; 85027; 85610; 87070; 87075; 87205; 87324; 87493; 87633; 89051; 92610; 93005; 94762; 94799; 96365; 99285; J1940; J2270; J2543; J7500; Q9967